=== PATIENT | female | born 1950 | race Caucasian/White ===

== ENCOUNTER 2016-05-13 12:21 | Inpatient (IN) | payer MEDICARE, OTHER ==
[~2016-05-13] VITALS: Ht 137.2 cm; Wt 78.7 kg
[2016-05-13] VITALS (10 sets, daily range): BP systolic 85–142; BP diastolic 53–76; PULSE 80–118; RESP 16–28; TEMP 97.8–98.9; O2SAT 87–99
[~2016-05-13 12:21] MED LIST: ACET325 PO; ALBU.5I NEB; ALUM5LIQ PO; AMLO10 PO; BUDE.5I NEB; DESONIDE TOP; DIPH25 PO; DOCU1CAP39 PO; LANSO30 NG; LEVA750T PO; LEVO.2 PO; LISI5 PO; LORTA5 PO; METO25 PO; MILKSUS5 PO; NITR0.1D TD; PRED50 PO; RITA20TA PO; SUCR1TAB PO; SYNT200T PO; THERTAB17 PO; TIOT18I INH
--- NOTE | 2016-05-13 12:28 | PD ---
HPI Chief Complaint: respiratory distress Time Seen by Provider: 12:23 Travel History International Travel<30 days: No Contact w/Intl Traveler<30days: No Traveled to known affect area: No History of Present Illness HPI 66-year-old female came to the emergency room brought by EMS with significant respiratory distress and hypoxia. She comes from the custodial and has history of COPD. Patient received 2 albuterol nebulizer along with Solu-Medrol en route. However by the time she arrived to the emergency room her oxygen saturation was 86% and she was in visible respiratory distress. Her rectal temp and ER was 101.9. Patient has been coughing and she said that she has had several pneumonias in the past. No history of vomiting or diarrhea. Given her respiratory distress and patient is hard of hearing but is difficult to get most of the history out of her. PFSH Past Medical History Narrative Medical List of her past medical history as reviewed from the nursing note. Arthritis: Yes Asthma: Yes Autoimmune Disease: Yes (MS) Blood Disorders: Yes Anxiety: No Depression: No Heart Rhythm Problems: Yes (mumur) Cancer: Yes (ENDOMETRIAL CA (with hysterectomy)) Cardiomyopathy: Yes Cardiovascular Problems: Yes (L HYPERTROPHIC CARDIOMEGALY) High Cholesterol: Yes Chemotherapy: No Chest Pain: Yes Congestive Heart Failure: No COPD: No Cerebrovascular Accident: No Diabetes: No Diminished Hearing: Yes (PRAIRIE BAND) Endocrine: Yes Gastrointestinal Disorders: Yes ( ESOPHAGEAL EROSION) Genetic Disorder: Yes GERD: Yes Genitourinary: No Headaches: No Hiatal Hernia: No Hypertension: Yes Immune Disorder: Yes (m.s., graves disease) Implanted Vascular Access Dvce: No Kidney Stones: No Musculoskeletal: Yes (fx right patella, right tibia fracture - fall in 2013) Neurologic: Yes (MS, NEUROPATHY, GRAVES DISEASE) Psychiatric: No Reproductive: No Respiratory: Yes (asthma) Immunizations Current: Yes Migraines: Yes Myocardial Infarction: No Pancreatitis: Yes Pneumonia: Yes Radiation Therapy: No Renal Failure: No Seizures: Yes Sickle Cell Disease: No Sleep Apnea: No Thyroid Disease: Yes Ulcer: Yes ( ) Menopausal: Yes : 1 Para: 1 Past Surgical History AICD: No Arteriovenous Shunt: No Cardiac Surgery: No Cholecystectomy: Yes Ear Surgery: No Endocrine Surgery: No Eye Surgery: No Genitourinary Surgery: No Gynecologic Surgery: Yes (hysterectomy) Hysterectomy: Yes Insulin Pump: No Joint Replacement: No Neurologic Surgery: Yes (KYPHOPLASTY T5,L1, SACRAL AND OTHERS) Oral Surgery: No Pacemaker: No Thoracic Surgery: No Tonsillectomy: Yes Other Surgery: Yes (bilat lumpectomy) Social History Alcohol Use: No Tobacco Use: No (STOPPED APR 2012) Substance Use: No Allergies-Medications (Allergen,Severity, Reaction): Coded Allergies: Amitriptyline (Verified Allergy, Severe, SWELLING, 07/21/15) Penicillin (Verified Allergy, Severe, Anaphylaxis, 07/21/15) Sulfa (Verified Allergy, Severe, Anaphylaxis, 07/21/15) Aspirin (Verified Allergy, Intermediate, Rash, 07/21/15) *MDRO Multi-Drug Resistant Organism (Verified Adverse Reaction, Unknown, ) MRSA PCR Screen POSITIVE - 07/22/2015, 05/13/2016 MRSA sputum 06/2015 Comments List of her allergies reviewed from the nursing note. Reported Meds & Prescriptions Reported Meds & Active Scripts Active Reported Loperamide (Loperamide HCl) 2 Mg Cap 2 Mg PO DIRECTED PRN Give 4mg for the initail dose, then 2mg after each loose stool. Not to exceed 16 mg per day. Fleet Enema Rectal (Sodium Phosphates Rectal) 7-19 Gm/118 Ml Enem 118 Ml RECTAL DIRECTED PRN Dulcolax Supp (Bisacodyl) 10 Mg Supp 10 Mg RECTAL DIRECTED PRN Nitroglycerin SL (Nitroglycerin) 0.4 Mg Subl 0.4 Mg SL DIRECTED PRN ONE TABLET UNDER THE TONGUE NEEDED FOR CHEST PAIN, MAY REPEAT EVERY FIVE MINUTES FOR A TOTAL OF 3 DOSES OR CALL 911 IF NO RELIEF Mapap (Acetaminophen) 325 Mg Tab 650 Mg PO Q4HR PRN Guaifenesin DM Liq (Guaifenesin-Dextromethorphan Liq) 10-100 Mg/5 Ml Liq 10 Ml PO Q6HR PRN Mylanta Liq (Snglusww-Yvnifhqsy-Ttsmnlcwndz Liq) 200-200-20 Mg/5 Ml Susp 30 Ml PO Q4HR PRN Take between meals or as directed. Shake well. Maximum 120 ml/24 hrs. Sucralfate 1 Gm Tab 1 Gm PO TID on empty stomach Spiriva Handihaler (Tiotropium Inh) 18 Mcg Cap 18 Mcg INH DAILY 1 capsule = 18 mcg Albuterol Neb (Albuterol Sulfate) 2.5 Mg/3 Ml Neb 2.5 Mg NEB Q6HR PRN Lorazepam 0.5 Mg Tab 0.5 Mg PO TID PRN Senna S (Sennosides-Docusate Sodium) 8.6-50 Mg Tab 1 Tab PO BID PRN Milk of Magnesia Liq (Magnesium Hydroxide) 400 Mg/5 Ml Susp 30 Ml PO Q4HR PRN Loperamide Liq (Loperamide HCl) 1 Mg/5 Ml Liq 2 Mg PO DIRECTED PRN Give 4 mg (20 ml) for the initial dose then, 2 mg (10 mL) after each loose stool. Not to exceed 16 mg (80 mL) per day. Keppra (Levetiracetam) 500 Mg Tab 500 Mg PO BID Guaifenesin 400 Mg Tab 400 Mg PO DAILY Hulbert (Hydrocodone-Acetaminophen) 5-325 mg Tab 1 Tab PO Q4H Gabapentin 100 Mg Cap 100 Mg PO TID Budesonide Neb 0.5 Mg/2 Ml Neb 0.5 Mg NEB BID NEB Amlodipine (Amlodipine Besylate) 10 Mg Tab 10 Mg PO DAILY Sertraline (Sertraline HCl) 50 Mg Tab 50 Mg PO DAILY Prednisone 10 Mg Tab 10 Mg PO DAILY Omeprazole 20 Mg Cap 20 Mg PO DAILY Mirtazapine 15 Mg Tab 15 Mg PO HS Metoprolol Tartrate 25 Mg Tab 12.5 Mg PO Q12HR Lactobacillus Acidophilus 1 Tab Tab 1 Tab PO BID Lisinopril 5 Mg Tab 5 Mg PO DAILY Levothyroxine (Levothyroxine Sodium) 200 Mcg Tab 200 Mcg PO DAILY Levothyroxine (Levothyroxine Sodium) 25 Mcg Tab 25 Mcg PO DAILY Narrative Medication List of her home medications reviewed from the nursing note. Review of Systems Except as stated in HPI: all other systems reviewed are Neg Physical Exam Narrative GENERAL: Awake, alert, obese, moderate respiratory distress SKIN: Warm and dry. HEAD: Atraumatic. Normocephalic. EYES: Pupils equal and round. No scleral icterus. No injection or drainage. ENT: No nasal bleeding or discharge. Mucous membranes pink and moist. NECK: Trachea midline. No JVD. CARDIOVASCULAR: Regular rate and rhythm. No murmur appreciated. RESPIRATORY: No accessory muscles for respiration. Decreased air entry on auscultation. Bilateral end expiratory wheeze GASTROINTESTINAL: Abdomen soft, non-tender, nondistended. Hepatic and splenic margins not palpable. MUSCULOSKELETAL: No obvious deformities. No clubbing. No cyanosis. No edema. NEUROLOGICAL: Awake and alert. No obvious cranial nerve deficits. Motor grossly within normal limits. Normal speech. PSYCHIATRIC: Appropriate mood and affect; insight and judgment normal. Data Data Last Documented VS Vital Signs Date Time Temp Pulse Resp B/P Pulse Ox O2 Delivery O2 Flow Rate FiO2 05/13/16 13:34 102 22 142/70 97 CPAP 80 05/13/16 12:23 98.7 Orders Ondansetron Inj (Zofran Inj) (05/13/16 12:34) Complete Blood Count With Diff (05/13/16 12:34) Comprehensive Metabolic Panel (05/13/16 12:34) Lactic Acid Sepsis Protocol (05/13/16 12:34) Magnesium (Mg) (05/13/16 12:34) Troponin I (05/13/16 12:34) Urinalysis - C+S If Indicated (05/13/16 12:34) Blood Culture (05/13/16 12:34) Chest, Single Ap (05/13/16 12:34) Arterial Blood Gas (Abg) (05/13/16 12:34) Blood Glucose (05/13/16 12:34) Ecg Monitoring (05/13/16 12:34) Iv Access Insert/Monitor (05/13/16 12:34) Oximetry (05/13/16 12:34) Oxygen Administration (05/13/16 12:34) Acetaminophen Supp (Tylenol Supp) (05/13/16 12:45) Piperacil-Tazo 4.5 Gm Premix (Zosyn 4.5 (05/13/16 12:34) Azithromycin Inj (Zithromax Inj) (05/13/16 12:34) Albuterol-Ipratropium Neb (Duoneb Neb) (05/13/16 12:45) Aztreonam Inj (Azactam Inj) (05/13/16 12:45) Resp Bipap / Cpap Non Invas Vt (05/13/16 ) Urinary Catheter Insert/Apply (05/13/16 12:38) B-Type Natriuretic Peptide (05/13/16 12:38) Ondansetron Inj (Zofran Inj) (05/13/16 12:45) Sodium Chlor 0.9% 1000 Ml Inj (Ns 1000 M (05/13/16 12:45) Influenzae A/B Antigen (05/13/16 13:09) Admit Order (Ed Use Only) (05/13/16 14:29) Labs Laboratory Tests Test 05/13/16 05/13/16 05/13/16 12:40 12:45 13:00 Blood Gas Puncture Site LT RADIAL Blood Gas Patient Temperature 98.6 Blood Gas HCO3 23 mmol/L Blood Gas Base Excess -1.0 mmol/L Blood Gas Oxygen Saturation 94 % Arterial Blood pH 7.40 Arterial Blood Partial 39 mmHg Pressure CO2 Arterial Blood Partial 132 mmHG Pressure O2 Arterial Blood Oxygen Content 14.9 Vol % Arterial Blood 1.6 % Carboxyhemoglobin Arterial Blood Methemoglobin 2.8 % Blood Gas Hemoglobin 11.2 G/DL Oxygen Delivery Device BiPAP Blood Gas Ventilator Setting IPAP15/EPAP7 Blood Gas Inspired Oxygen 100 % White Blood Count 17.7 TH/MM3 Red Blood Count 4.01 MIL/MM3 Hemoglobin 11.0 GM/DL Hematocrit 34.2 % Mean Corpuscular Volume 85.3 FL Mean Corpuscular Hemoglobin 27.3 PG Mean Corpuscular Hemoglobin 32.0 % Concent Red Cell Distribution Width 17.6 % Platelet Count 248 TH/MM3 Mean Platelet Volume 9.3 FL Neutrophils (%) (Auto) 77.3 % Lymphocytes (%) (Auto) 10.1 % Monocytes (%) (Auto) 7.4 % Eosinophils (%) (Auto) 5.0 % Basophils (%) (Auto) 0.2 % Neutrophils # (Auto) 13.7 TH/MM3 Lymphocytes # (Auto) 1.8 TH/MM3 Monocytes # (Auto) 1.3 TH/MM3 Eosinophils # (Auto) 0.9 TH/MM3 Basophils # (Auto) 0.0 TH/MM3 CBC Comment DIFF FINAL Differential Comment Sodium Level 141 MEQ/L Potassium Level 3.5 MEQ/L Chloride Level 103 MEQ/L Carbon Dioxide Level 24.4 MEQ/L Anion Gap 14 MEQ/L Blood Urea Nitrogen 26 MG/DL Creatinine 1.10 MG/DL Estimat Glomerular Filtration 50 ML/MIN Rate Random Glucose 195 MG/DL Lactic Acid Level 3.4 mmol/L Calcium Level 9.0 MG/DL Magnesium Level 1.8 MG/DL Total Bilirubin 0.4 MG/DL Aspartate Amino Transf 10 U/L (AST/SGOT) Alanine Aminotransferase 19 U/L (ALT/SGPT) Alkaline Phosphatase 82 U/L Troponin I LESS THAN 0.02 NG/ML B-Type Natriuretic Peptide 37 PG/ML Total Protein 7.9 GM/DL Albumin 3.0 GM/DL Urine Color YELLOW Urine Turbidity CLEAR Urine pH 6.0 Urine Specific Drake 1.020 Urine Protein 30 mg/dL Urine Glucose (UA) NEG mg/dL Urine Ketones NEG mg/dL Urine Occult Blood NEG Urine Nitrite NEG Urine Bilirubin NEG Urine Urobilinogen LESS THAN 2.0 MG/DL Urine Leukocyte Esterase NEG Urine Mucus FEW /lpf Microscopic Urinalysis Comment CATH-CULT NOT IND MDM Medical Decision Making Medical Screen Exam Complete: Yes Emergency Medical Condition: Yes Medical Record Reviewed: Yes Interpretation(s) Twelve-lead EKG was reviewed by me. Normal sinus rhythm, normal axis, tachycardia, nonspecific ST-T wave changes. Heart rate of 111 bpm. Differential Diagnosis Pneumonia, sepsis, pleural effusion Narrative Course 2:26 PM blood test results of back and lactic acid is elevated. Patient has leukocytosis. Patient was given antibiotic and fluid as per sepsis protocol. I spoke with the hospitalist to admit this patient. Patient was put on BiPAP which has improved the oxygen saturation. Patient is much more comfortable at this point. She was also given 3 duo nebs. Critical Care Narrative Aggregate critical care time was 45 minutes. Time to perform other separately billable procedures was not included in the critical care time. My time did not include minutes spent treating any other patients simultaneously or on activities that did not directly contribute to the patient's treatment. The services I provided to this patient were to treat and/or prevent clinically significant deterioration that could result in: Respiratory distress, sepsis, COPD exacerbation, hypoxia, pneumonia I provided critical care services requiring my management, as noted below: Chart data review, documentation time, medication orders and management, vital sign assessments/reviewing monitor data, ordering and reviewing lab tests, ordering and interpreting/reviewing x-rays and diagnostic studies, care of the patient and discussion of the patient with the admitting physicians. Procedures EKG Prior to Arrival: No Sepsis Criteria SIRS Criteria (2 or more): Temp > 100.9 or < 96.8, Heart rate over 90, RR > 20 or PaCO2 < 32, WBC > 16333, < 4000 or > 10% bands Sepsis Criteria (SIRS+source): Infect source susp/known Severe Sepsis (+one): Lactate >2 Diagnosis Primary Impression: Respiratory distress Additional Impressions: PNA (pneumonia) Qualified Code: J18.9 - Pneumonia due to infectious organism, unspecified laterality, unspecified part of lung Acute exacerbation of chronic obstructive pulmonary disease (COPD) Hypoxia Sepsis Qualified Code: A41.9 - Sepsis, due to unspecified organism Admitting Information Admitting Physician Requests: Admit Beau Wright MD May 13, 2016 12:28
[2016-05-13] MEDS ORDERED: AZITHROMYCIN INJ 500 MG in SODIUM CHLOR 0.9% 250 ML INJ 250 ML IV STA (12:34)
[2016-05-13] MEDS ORDERED: PIPERACIL-TAZO 4.5 GM PREMIX 100 ML IV STA (12:34)
[2016-05-13] MEDS ORDERED: ONDANSETRON HCL 4 MG/2 ML VIAL ONE (12:34)
[2016-05-13] MEDS ORDERED: ACETAMINOPHEN 650 MG SUPP RECTAL ONE (12:45)
[2016-05-13] MEDS ORDERED: AZTREONAM INJ 2,000 MG in SODIUM CHLORIDE 0.9% INJ 100 ML IV ONE (12:45)
[2016-05-13] MEDS ORDERED: SODIUM CHLOR 0.9% 1000 ML INJ 1,000 ML IV ONE (12:45)
[2016-05-13] MEDS ORDERED: ONDANSETRON HCL 4 MG/2 ML VIAL IV PUSH ONE (12:45)
[2016-05-13 12:50] LABS: BLOOD GAS CARBOXYHEMOGLOBIN 1.6 % (0-4); BLOOD GAS HCO3 23 mmol/L (22-26); BLOOD GAS METHEMOGLOBIN 2.8 % (0-2); BLOOD GAS O2 HGB SATURATION 94 % (90-100); BLOOD GAS OXYGEN CONTENT 14.9 Vol % (12.0-20.0); BLOOD GAS PCO2 39 mmHg (38-42); BLOOD GAS PO2 132 mmHG (61-120); BLOOD GAS TOTAL HGB 11.2 G/DL (12.0-16.0); CRITICAL VALUE NO; DRAW SITE LT RADIAL; FIO2 100 %; NUMBER OF ARTERIAL PUNCTURES 1; OXYGEN DEVICE BiPAP; STAT YES; TEMP CORR TO 98.6; ULNAR PULSE PRESENT; VENT SETTINGS IPAP15/EPAP7
[2016-05-13] MEDS: RESP: ALBUTEROL 2.5 MG/IPRATROPIUM 0.5 MG NEB (SCH) INH (13:00)
[2016-05-13 13:07] LABS: AUTOMATED NEUTROPHIL # 13.7 TH/MM3 (1.8-7.7); BASOPHIL % 0.2 % (0.0-2.0); EOSINOPHIL # 0.9 TH/MM3 (0-0.4); HEMATOCRIT 34.2 % (35.0-46.0); HEMO FLAGS DIFF FINAL; LYMPH % 10.1 % (9.0-44.0); LYMPHOCYTE # 1.8 TH/MM3 (1.0-4.8); MEAN CELL VOLUME 85.3 FL (80.0-100.0); MEAN CORPUSCULAR HEMOGLOBIN 27.3 PG (27.0-34.0); MONO % 7.4 % (0.0-8.0); NEUT % 77.3 % (16.0-70.0); PLATELET COUNT 248 TH/MM3 (150-450); RED BLOOD COUNT 4.01 MIL/MM3 (4.00-5.30); RED CELL DISTRIBUTION WIDTH 17.6 % (11.6-17.2); WHITE BLOOD COUNT 17.7 TH/MM3 (4.0-11.0)
[2016-05-13] MEDS ORDERED: LEVO200T4 PO (13:15)
[2016-05-13] MEDS ORDERED: LEVO25TA4 PO (13:15)
[2016-05-13 13:25] LABS: ALT (GPT) 19 U/L (10-53); ANION GAP 14 MEQ/L (5-15); AST (GOT) 10 U/L (15-37); BICARBONATE 24.4 MEQ/L (21.0-32.0); BLOOD UREA NITROGEN 26 MG/DL (7-18); CHLORIDE 103 MEQ/L (98-107); GLOMERULAR FILTRATION RATE 50 ML/MIN (>89); MAGNESIUM 1.8 MG/DL (1.5-2.5); POTASSIUM 3.5 MEQ/L (3.5-5.1); SODIUM (NA) 141 MEQ/L (136-145)
[2016-05-13] MEDS ORDERED: LISI-519 PO (13:26)
[2016-05-13] MEDS ORDERED: MIRTA15 PO (13:26)
[2016-05-13] MEDS ORDERED: LACTTAB8 PO (13:26)
[2016-05-13] MEDS ORDERED: METO25TA3 PO (13:26)
[2016-05-13] MEDS ORDERED: GABA100C4 PO (13:26)
[2016-05-13] MEDS ORDERED: BUDE0.5S NEB (13:26)
[2016-05-13] MEDS ORDERED: SERT-132 PO (13:26)
[2016-05-13] MEDS ORDERED: OMEP20CA2 PO (13:26)
[2016-05-13] MEDS ORDERED: PRED10 PO (13:26)
[2016-05-13] MEDS ORDERED: AMLO10TA2 PO (13:26)
--- NOTE | 2016-05-13 13:28 | RADRPT ---
EXAM DATE/TIME: 05/13/2016 12:58 [facility] COMPARISON: Prior study dated 09/14/2015 used for comparison. INDICATIONS : Short of breath MEDICAL HISTORY : None. SURGICAL HISTORY : None. ENCOUNTER: Initial ACUITY: 1 day PAIN SCORE: 0/10 LOCATION: Bilateral chest FINDINGS: A single view of the chest demonstrates there is mild pulmonary vascular congestion. There are three levels of vertebroplasties in the thoracic spine. The heart remains mildly prominent. There is no p neumothorax. There are a number of left sided rib fractures. CONCLUSION: Mild diffuse interstitial prominence. No focal infiltrate is seen. Jean Chatterjee MD on May 13, 2016 at 13:23 Board Certified Radiologist. This report was verified electronically.
[2016-05-13 13:29] LABS: ALKALINE PHOSPHATASE 82 U/L (45-117); TOTAL BILIRUBIN ADULT 0.4 MG/DL (0.2-1.0)
[2016-05-13] MEDS ORDERED: LOPE1LIQ3 PO (13:32)
[2016-05-13] MEDS ORDERED: GUAI400T8 PO (13:32)
[2016-05-13] MEDS ORDERED: NORC5TAB PO (13:32)
[2016-05-13] MEDS ORDERED: LEVE500 PO (13:32)
[2016-05-13 13:34] LABS: BLOOD, URINE NEG (NEG); GLUCOSE,URINE NEG (NEG); KETONE, URINE NEG (NEG); MUCUS URINE FEW /lpf (OCC); NITRITE,URINE NEG (NEG); URINE COLOR YELLOW (YELLW/STRAW)
[2016-05-13 13:36] LABS: COMMENT (UR) CATH-CULT NOT IND; CULTURE IF INDICATED CATH CULTURE NOT IND
[2016-05-13] MEDS ORDERED: MILKSUS PO (13:37)
[2016-05-13] MEDS ORDERED: LORA-373 PO (13:37)
[2016-05-13] MEDS ORDERED: SENN8.6T8 PO (13:37)
[2016-05-13] MEDS ORDERED: SPIRCAP INH (13:37)
[2016-05-13] MEDS ORDERED: SUCR1TAB PO (13:37)
[2016-05-13] MEDS ORDERED: ALBU0.08 NEB (13:37)
[2016-05-13] MEDS ORDERED: DULC10SU3 RECTAL (13:44)
[2016-05-13] MEDS ORDERED: GUAISYP7 PO (13:44)
[2016-05-13] MEDS ORDERED: MYLASUS2 PO (13:44)
[2016-05-13] MEDS ORDERED: FLEEENE3 RECTAL (13:44)
[2016-05-13] MEDS ORDERED: MAPA325T PO (13:44)
[2016-05-13] MEDS ORDERED: NITR1SUB3 SL (13:44)
[2016-05-13] MEDS ORDERED: LOPE2CAP PO (13:44)
[2016-05-13] MEDS ORDERED: SODIUM CHLORIDE 0.9% FLUSH 5 ML FLUSH FLUSH PRN (14:45)
[2016-05-13] MEDS ORDERED: ACETAMINOPHEN 325 MG TAB PO PRN (14:45)
[2016-05-13] MEDS ORDERED: ONDANSETRON HCL 4 MG/2 ML VIAL IVP PRN (14:45)
[2016-05-13] MEDS ORDERED: NALOXONE HCL 0.4 MG/ML AMP IV PRN (14:45)
[2016-05-13 14:59] LABS: LACTIC ACID GHOST NOT REPORTABLE
[2016-05-13] MEDS ORDERED: ALUMINUM/MAGNESIUM/SIMETH 30 ML CUP PO PRN (15:00)
[2016-05-13] MEDS ORDERED: NITROGLYCERIN 0.4 MG SL 25 TABS/BTL SL PRN (15:00)
[2016-05-13] MEDS ORDERED: RESP: ALBUTEROL 2.5 MG/3 ML NEB (PRN) NEB (15:00)
[2016-05-13] MEDS ORDERED: guaiFENesin/DEXTROMETHORPHAN 200 MG/20 MG/10 ML CUP PO PRN (15:00)
[2016-05-13] MEDS: SODIUM CHLOR 0.9% 1000 ML INJ 1,000 ML IV SCH (15:37)
[2016-05-13] MEDS: ACETAMINOPHEN/HYDROcodone 325 MG/5 MG TAB PO SCH ×3 (15:37→22:11)
[2016-05-13] MEDS ORDERED: AZITHROMYCIN INJ 500 MG in SODIUM CHLOR 0.9% 250 ML INJ 250 ML IV SCH ×2 (16:00→18:00)
[2016-05-13] MEDS: CEFEPIME INJ 2,000 MG in SODIUM CHLORIDE 0.9% INJ 100 ML IV SCH (16:30)
[2016-05-13] MEDS ORDERED: RESP: ALBUTEROL 2.5 MG/IPRATROPIUM 0.5 MG NEB (PRN) NEB (17:15)
[2016-05-13] MEDS ORDERED: DEXTROSE 50% IN WATER 50 ML VIAL(D50) IV PUSH PRN (17:15)
[2016-05-13] MEDS ORDERED: GLUCAGON 1 MG/ML VIAL OTHER PRN (17:15)
--- NOTE | 2016-05-13 17:29 | MH ---
cc: DEAN RAJPUT DATE OF ADMISSION 05/13/2016 DATE OF [address] Dean Rajput. PRIMARY CARE PHYSICIAN Dr. Brandon Hernandez. REASON FOR ADMISSION Respiratory distress. HISTORY OF THE PRESENT ILLNESS The patient is a 66-year-old female with a significant past medical history of COPD. She is oxygen dependent on 6 liters nasal cannula as per previous history. Also has a history of multiple sclerosis, hypertension, seizure disorder and gastritis with Bueno's esophagus who came to the ER via EMS because of the respiratory distress and hypoxia. The patient received two albuterol nebulizer with Solu-Medrol en route. And when she came to the ER her oxygen saturation was 86%. She was in respiratory distress as per the ER physician documentation and as discussed with her. Her rectal temperature was 101.9. Because of this reason the patient was recommended for admission. The patient was put on BiPap. I saw the patient in the emergency room while being on a BiPap. It was difficult to get good history. The patient has shortness of breath for the past 5-6 days. And with a cough. She was unable to tell me about the sputum. She had fever and chills. She has nausea and vomiting. She has diarrhea from 5 days, a few times a day. She did not have any pain just generalized body ache, no particular pain but just generalized bodyache. There was no headache. There is no genitourinary symptom. The patient was put on a BiPap which did help her. She is feeling better. PAST MEDICAL HISTORY 1. COPD. 2. Hypertension 3. Multiple sclerosis. 4. Seizure disorder. 5. Gastritis with Bueno's esophagus. PAST SURGICAL HISTORY 1. Hysterectomy. 2. Cholecystectomy. 3. Kyphoplasty. 4. Bilateral lumpectomy. REVIEW OF SYSTEMS As described above in the history of present illness, otherwise negative for 10 systems. SOCIAL HISTORY The patient quit smoking in 2012. Does not drink or do any drugs. FAMILY HISTORY Noncontributory. MEDICATIONS Reviewed, please see EMR. ALLERGIES THE PATIENT IS ALLERGIC TO AMITRIPTYLINE, ASPIRIN, PENICILLIN, SULFA DRUGS. SHE HAS MULTIPLE DRUG RESISTANT ORGANISM IN THE PAST. PHYSICAL EXAMINATION GENERAL: The patient is alert, awake on BiPAP. VITAL SIGNS: Show the patient is afebrile. Pulse 100-109 on monitor. Respiratory rate is 22, blood pressure 142/70. Pulse oximetry is 97% on FIO2 of 50%. HEENT: Head is atraumatic, normocephalic. Eyes negative conjunctivae injection or icterus. Mouth unable to see clearly because of BiPAP mask on. NECK: A very short neck. Central trachea. Unable to see clearly JVD. CHEST: Decreased air entry. Bibasilarly . Coarse respirations. No accessory muscle use for respirations. CARDIOVASCULAR: S1 and S2 audible. Tachycardia. Unable to hear any S3 gallop or murmur. ABDOMEN: Soft, non-tender. No organomegaly. Positive bowel sounds. MUSCULOSKELETAL: Extremities, no cyanosis noted. No edema. CIVIL [employer]ER [employer]INING: Alert, awake. Seems like normal facial features. Normal speech. Moving all extremities. SKIN: Warm and dry. PSYCHIATRIC: Appropriate mood and affect. LABORATORY DATA Investigations, WBC count 17.7, hemoglobin 11, hematocrit 34.2, platelet count to 248. BUN 26. Creatinine 1.10, random glucose 95, lactic acid 3.4, AST 10. Troponin 0.02. Urine shows urine protein 30, urine mucus few. Influenza A and B antigen negative. IMAGING Chest x-ray report shows mild diffuse interstitial prominence. No focal infiltrate is seen. ASSESSMENT 1. Fever. Tachycardia with increased lactic acid 3.4, sepsis on admission. 2. COPD exacerbation. 3. Likely pneumonia developing / bronchitis. 4. Acute respiratory failure. 5. Leukocytosis. 6. History of seizure disorder. 7. History of gastritis. 8. History of multiple sclerosis. 9. Hypertension. PLAN Admit to ICU. IV antibiotics broad-spectrum. IV Solu-Medrol. Breathing treatments. Scanning Supervisor consult. Continue home medication as indicated. CBC, BMP in the morning. Follow cultures. See orders. GI prophylaxis. DVT prophylaxis. Condition discussed with the patient. Condition is critical. Prognosis guarded. Further recommendation will follow. Total time spent with the patient and management of this patient is more than an hour. Further recommendations to follow as the patient progresses. Dean Rajput MD JP/ARTHUR /4:28 PM /5:01 PM
[2016-05-13] MEDS: GABAPENTIN 100 MG CAP PO SCH (17:32)
[2016-05-13] MEDS: SUCRALFATE 1 GM TAB PO SCH (17:32)
[2016-05-13] MEDS: methylPREDNISolone SOD SUCC 125 MG/2 ML VIAL IV PUSH SCH ×2 (17:33→22:08)
[2016-05-13] MEDS: INSULIN NovoLIN REGULAR SUPPLEMENTAL SCALE SQ SCH ×2 (17:33→22:34)
[2016-05-13] MEDS: HEPARIN SODIUM - SQ 10,000 UNITS/ML VIAL SQ SCH (17:34)
[2016-05-13] MEDS ORDERED: CHLORHEXIDINE GLUCONATE 2 % 1 PACK (2 CLOTHS)(extra cloths) TOP PRN (19:00)
[2016-05-13] MEDS: RESP: BUDESONIDE 0.5 MG/2 ML NEB NEB SCH (19:47)
[2016-05-13] MEDS: RESP: ALBUTEROL 2.5 MG/IPRATROPIUM 0.5 MG NEB (SCH) NEB (19:47)
--- NOTE | 2016-05-13 20:26 | MB ---
cc: FRANK PERALTA M.D. DATE OF CONSULTATION: 05/13/2016. HISTORY OF PRESENT ILLNESS: The patient is 66-year-old female with past medical history of COPD, hypertension, hypothyroidism, gastroesophageal reflux disease, hypertension, and morbid obesity who presented to the [facility] Emergency Department by EMS with respiratory distress and hypoxemia. The patient resides in a local alf and she received a bronchodilator treatment along with Solu-Medrol en route. In the emergency department, she was found to have an O2 saturation of 86% and had a rectal temperature of 101.9 in the emergency department. Also she reports coughing. According to the emergency department records, the patient has had several pneumonias in the past. She is a poor historian. She denies any nausea, vomiting, diarrhea or any constitutional symptoms. On arrival to the emergency department, she was tachycardiac with heart rate of 102 to 118 and tachypneic. She was placed on BiPAP 15/7 with 100% FIO2. An ABG was performed at 12:40, which showed a pH of 7.40, CO2 39, pAO2 132, bicarb 23, saturation of 94%. Chest x-ray on arrival showed mild diffuse interstitial prominence, no focal infiltrates seen. Laboratory data significant for leukocytosis with a WBC of 17.7 and her initial lactic acid level was 3.4, which increased to 4.3 at 1500. She was given azithromycin, aztreonam, Tylenol, bronchodilator treatment and one liter of normal saline. The patient was transferred to [facility] [place]. Rajput's service from the [facility] and critical care medicine was consulted for critical care management. The patient is currently off on BiPAP and is on partial rebreather with saturation of 98% to 99% and blood pressure 110/55. Her nasal aspirate for influenza A and B antigen is negative and two sets of blood cultures have been performed in the ED. PAST MEDICAL HISTORY: Her past medical history is significant for: 1. COPD. 2. Hypertension. 3. Hypothyroidism. 4. Endometrial CA. 5. Gastroesophageal reflux disease (GERD). 6. History of Graves disease. 7. History of seizure disorder. PAST SURGICAL HISTORY: 1. Previous hysterectomy. 2. Previous cholecystectomy. 3. Previous kyphoplasty. 4. Bilateral lumpectomy. SOCIAL HISTORY: The patient is a alf resident, ex-smoker, quit smoking four years ago and used to smoke a pack and a half of cigarettes per day for many years. Denies any alcohol use. ALLERGIES: 1. PENICILLIN. 2. ASPIRIN. 3. AMITRIPTYLINE. FAMILY HISTORY: Noncontributory. REPORTED MEDICATIONS: 1. Levothyroxine. 2. Lactobacillus. 3. Metoprolol. 4. Omeprazole. 5. Prednisone. 6. Sertraline. 7. Norvasc. 8. Gabapentin. 9. Keppra. 10. Albuterol. 11. Spiriva. 12. REVIEW OF SYSTEMS: As per HPI. The rest of the review of systems is negative. PHYSICAL EXAMINATION: GENERAL: A 66-year-old female lying in bed in mild respiratory distress. VITAL SIGNS: Temperature of 101.9 rectally in the emergency department, pulse of 98, blood pressure 110/55, saturation 98% to 99%. HEAD, EYES, EARS, NOSE, THROAT: Normocephalic and atraumatic. Pupils equal, round and reactive to light and accommodation. Extraocular muscles intact. Conjunctivae are pink. Nonicteric sclerae. Oral mucosa within normal limits. Dry mucous membranes noted. NECK: The neck is supple. No jugular venous distention, adenopathy or thyromegaly. Trachea in the midline. CARDIOVASCULAR: Regular rate and rhythm. Normal S1 and S2. No murmurs, rubs or gallops noted. PULMONARY: Bilateral equal air entry with scattered wheezing and coarse breath sounds. ABDOMEN: The abdomen is soft, obese, nontender and no distention. Positive bowel sounds. EXTREMITIES: No cyanosis, clubbing or edema. NEUROLOGIC: No focal sensory deficit. LABORATORY DATA: Sodium 141, potassium 3.5, chloride 103, CO2 24, BUN 26, creatinine 1.10, glucose 195, lactic acid 4.3, AST 10, ALT 19, total bilirubin 0.4. Troponin less than 0.020. Albumin 3. WBC 17.7, hemoglobin 11, hematocrit of 34, platelet count 248. Urinalysis negative for nitrite, ketones, leukocyte esterase. RADIOGRAPHY: The chest x-ray showed no focal infiltrates seen. Mild diffuse interstitial prominence. EKGS: EKG showed sinus tachycardia with heart rate of 111 beats per minute. Nonspecific T-wave abnormality. IMPRESSION: 1. Acute hypoxemic respiratory insufficiency. 2. COPD exacerbation. 3. Tracheobronchitis. 4. Leukocytosis. 5. Lactic acidemia. 6. Hyperglycemia. 7. Hypertension. 8. Hypothyroidism. 9. History of seizure disorder. RECOMMENDATIONS: 1. Monitor neuro status closely and avoid any sedatives. 2. Continue with Keppra 500 milligrams p.o. twice a day. 3. Continue to wean down oxygen as tolerated and maintain sats above 92%. 4. Place on bronchodilators in the form of DuoNeb q. 4 plus q. 2 PRN for shortness of breath and continue with Spiriva and Symbicort. 5. Noninvasive positive pressure ventilation p.r.n. for respiratory distress. 6. Place on IV steroids, Solu-Medrol 60 mg IV q. 8. 7. Monitor heart rate and blood pressure closely and maintain MAP greater 65 mmHg. 8. Continue with blood pressure medications per primary team. She is currently on amlodipine 10 mg daily. She is on Lopressor 12.5 mg p.o. q. 12. 9. IV fluids. Continue with IV hydration. The patient has been placed on normal saline at 100 mL/hour. 10. Monitor renal function, intakes and outputs and electrolyte replacement per protocol. 11. IV fluids as stated above. 12. Keep NPO for now until respiratory status improves and continue with Protonix 20 milligrams daily for GI prophylaxis and history of gastroesophageal reflux disease (GERD). 13. Continue with antibiotics in the form of cefepime and will add azithromycin. 14. Monitor for signs of infections which include fever and WBC. 15. Follow up on blood cultures. Her nasal aspirate washing negative for influenza. 16. Monitor CBC. 17. Place on medium sliding scale insulin with Accu-Chek q. 6-hour for glycemic control as patient will be on IV steroids. 18. Continue with Synthroid per primary team. 19. GI prophylaxis with Protonix and DVT prophylaxis with SCDs and heparin subcu. Further recommendations will be based on the hospital course. CRITICAL CARE TIME: Sixty (60) minutes excluding procedures. MD MARCIO Vallejo/ADELIA /5:19 PM /8:08 PM
[2016-05-13] MEDS: SODIUM CHLORIDE 0.9% FLUSH 5 ML FLUSH FLUSH SCH (21:00)
[2016-05-13] MEDS: METOPROLOL TARTRATE 25 MG TAB PO SCH (21:00)
[2016-05-13] MEDS: LACTOBACILLUS ACIDOPHILUS TAB PO SCH (22:07)
[2016-05-13] MEDS: levETIRAcetam 500 MG TAB PO SCH (22:07)
[2016-05-13] MEDS: MIRTAZAPINE 15 MG TAB PO SCH (22:08)
[2016-05-13] MEDS: BUDESONIDE-FORMOTEROL 160/4.5 MCG INHALER INH SCH (22:09)
[2016-05-14] VITALS (14 sets, daily range): BP systolic 90–120; BP diastolic 53–58; PULSE 80–110; RESP 16–20; TEMP 97.8–98.6; O2SAT 94–100
[2016-05-14] MEDS: SODIUM CHLOR 0.9% 1000 ML INJ 1,000 ML IV SCH ×3 (02:31→20:29)
[2016-05-14] MEDS: ACETAMINOPHEN/HYDROcodone 325 MG/5 MG TAB PO SCH ×6 (03:00→22:19)
[2016-05-14] MEDS: CHLORHEXIDINE GLUCONATE 2 % 1 PACK (2 CLOTHS)(taper/protocol) TOP SCH (03:55)
[2016-05-14] MEDS: CEFEPIME INJ 2,000 MG in SODIUM CHLORIDE 0.9% INJ 100 ML IV SCH ×2 (03:55→15:59)
[2016-05-14] MEDS: LEVOTHYROXINE SODIUM 25 MCG TAB PO SCH (06:16)
[2016-05-14] MEDS: methylPREDNISolone SOD SUCC 125 MG/2 ML VIAL IV PUSH SCH ×3 (06:17→20:28)
[2016-05-14] MEDS: HEPARIN SODIUM - SQ 10,000 UNITS/ML VIAL SQ SCH ×2 (06:17→18:18)
[2016-05-14] MEDS: INSULIN NovoLIN REGULAR SUPPLEMENTAL SCALE SQ SCH ×4 (06:34→22:19)
[2016-05-14 07:38] LABS: BASOPHIL % 0.1 % (0.0-2.0); HEMO FLAGS DIFF FINAL; LYMPHOCYTE # 0.9 TH/MM3 (1.0-4.8); MEAN CELL VOLUME 85.6 FL (80.0-100.0); MEAN CORPUSCULAR HGB CONC 31.5 % (32.0-36.0); MONO % 2.9 % (0.0-8.0); PLATELET COUNT 205 TH/MM3 (150-450); RED BLOOD COUNT 3.62 MIL/MM3 (4.00-5.30); RED CELL DISTRIBUTION WIDTH 16.8 % (11.6-17.2); WHITE BLOOD COUNT 14.3 TH/MM3 (4.0-11.0)
[2016-05-14 07:51] LABS: BICARBONATE 24.6 MEQ/L (21.0-32.0); MAGNESIUM 2.1 MG/DL (1.5-2.5)
[2016-05-14] MEDS: RESP: BUDESONIDE 0.5 MG/2 ML NEB NEB SCH (08:34)
[2016-05-14] MEDS: RESP: ALBUTEROL 2.5 MG/IPRATROPIUM 0.5 MG NEB (SCH) NEB ×4 (08:34→20:22)
[2016-05-14] MEDS: GABAPENTIN 100 MG CAP PO SCH ×3 (08:42→18:18)
[2016-05-14] MEDS: levETIRAcetam 500 MG TAB PO SCH ×2 (08:42→20:30)
[2016-05-14] MEDS: SODIUM CHLORIDE 0.9% FLUSH 5 ML FLUSH FLUSH SCH ×2 (08:42→20:29)
[2016-05-14] MEDS: PANTOPRAZOLE SOD 20 MG DELAYED RELEASE TAB PO SCH (08:42)
[2016-05-14] MEDS: SERTRALINE HCL 50 MG TAB PO SCH (08:42)
[2016-05-14] MEDS: guaiFENesin SOLUTION 200 MG/10 ML CUP PO SCH (08:42)
[2016-05-14] MEDS: METOPROLOL TARTRATE 25 MG TAB PO SCH ×2 (08:42→20:29)
[2016-05-14] MEDS: SUCRALFATE 1 GM TAB PO SCH ×3 (08:42→18:18)
[2016-05-14] MEDS: LACTOBACILLUS ACIDOPHILUS TAB PO SCH ×2 (08:42→20:29)
[2016-05-14] MEDS ORDERED: TIOTROPIUM BROMIDE 18 MCG INH INH SCH (09:00)
--- NOTE | 2016-05-14 09:02 | HHI.CCPN ---
Subjective Remarks/Hospital Course Patient is 66-year-old female with past medical history of COPD, hypertension, hypothyroidism, gastroesophageal reflux disease, hypertension, and morbid obesity who presented to the [facility] Emergency Department by EMS with respiratory distress and hypoxemia. The patient resides in a local fpc and she received a bronchodilator treatment along with Solu-Medrol en route. In the emergency department, she was found to have an O2 saturation of 86 % and had a rectal temperature of 101.9 in the emergency department. Also she reports coughing. According to the emergency department records, the patient has had several pneumonias in the past. She is a poor historian. She denies any nausea, vomiting, diarrhea or any constitutional symptoms. On arrival to the emergency department, she was tachycardiac with heart rate of 102 to 118 and tachypneic. She was placed on BiPAP 15/7 with 100% FIO2. An ABG was performed at 12:40, which showed a pH of 7.40, CO2 39, pAO2 132, bicarb 23, saturation of 94%. Chest x-ray on arrival showed mild diffuse interstitial prominence, no focal infiltrates seen. Laboratory data significant for leukocytosis with a WBC of 17.7 and her initial lactic acid level was 3.4, which increased to 4.3 at 1500. She was given azithromycin, aztreonam, Tylenol, bronchodilator treatment and one liter of normal saline. The patient was transferred [place] [facility] [place]. Rajput's service from the [facility] and critical care medicine was consulted for critical care management. The patient is currently off on BiPAP and is on partial rebreather with saturation of 98% to 99% and blood pressure 110/55. Her nasal aspirate for influenza A and B antigen is negative and two sets of blood cultures have been performed in the ED. 05/14 No events overnight. On partial rebreather with good sats. Afebrile. Lactic acid resolved. Objective Vital Signs Date Time Temp Pulse Resp B/P Pulse Ox O2 Delivery O2 Flow Rate FiO2 05/14/16 08:37 100 Partial Rebreather 12.00 05/14/16 08:00 92 05/14/16 08:00 97.8 18 120/57 05/13/16 16:01 80 Intake and Output 05/13/16 05/13/16 05/14/16 08:00 16:00 00:00 Intake Total 637 ml Output Total 400 ml Balance 237 ml Result Diagram: 05/14/16 0715 05/14/16 0715 Other Results Laboratory Tests Test 05/13/16 05/13/16 05/13/16 05/13/16 12:40 12:45 13:00 15:00 Blood Gas Puncture Site LT RADIAL Blood Gas Patient Temperature 98.6 Blood Gas HCO3 23 mmol/L Blood Gas Base Excess -1.0 mmol/L Blood Gas Oxygen Saturation 94 % Arterial Blood pH 7.40 Arterial Blood Partial 39 mmHg Pressure CO2 Arterial Blood Partial 132 mmHG Pressure O2 Arterial Blood Oxygen Content 14.9 Vol % Arterial Blood 1.6 % Carboxyhemoglobin Arterial Blood Methemoglobin 2.8 % Blood Gas Hemoglobin 11.2 G/DL Oxygen Delivery Device BiPAP Blood Gas Ventilator Setting IPAP15/[id number] Blood Gas Inspired Oxygen 100 % White Blood Count 17.7 TH/MM3 Red Blood Count 4.01 MIL/MM3 Hemoglobin 11.0 GM/DL Hematocrit 34.2 % Mean Corpuscular Volume 85.3 FL Mean Corpuscular Hemoglobin 27.3 PG Mean Corpuscular Hemoglobin 32.0 % Concent Red Cell Distribution Width 17.6 % Platelet Count 248 TH/MM3 Mean Platelet Volume 9.3 FL Neutrophils (%) (Auto) 77.3 % Lymphocytes (%) (Auto) 10.1 % Monocytes (%) (Auto) 7.4 % Eosinophils (%) (Auto) 5.0 % Basophils (%) (Auto) 0.2 % Neutrophils # (Auto) 13.7 TH/MM3 Lymphocytes # (Auto) 1.8 TH/MM3 Monocytes # (Auto) 1.3 TH/MM3 Eosinophils # (Auto) 0.9 TH/MM3 Basophils # (Auto) 0.0 TH/MM3 CBC Comment DIFF FINAL Differential Comment Sodium Level 141 MEQ/L Potassium Level 3.5 MEQ/L Chloride Level 103 MEQ/L Carbon Dioxide Level 24.4 MEQ/L Anion Gap 14 MEQ/L Blood Urea Nitrogen 26 MG/DL Creatinine 1.10 MG/DL Estimat Glomerular Filtration 50 ML/MIN Rate Random Glucose 195 MG/DL Lactic Acid Level 3.4 mmol/L 4.3 mmol/L Calcium Level 9.0 MG/DL Magnesium Level 1.8 MG/DL Total Bilirubin 0.4 MG/DL Aspartate Amino Transf 10 U/L (AST/SGOT) Alanine Aminotransferase 19 U/L (ALT/SGPT) Alkaline Phosphatase 82 U/L Troponin I LESS THAN 0.02 NG/ML B-Type Natriuretic Peptide 37 PG/ML Total Protein 7.9 GM/DL Albumin 3.0 GM/DL Urine Color YELLOW Urine Turbidity CLEAR Urine pH 6.0 Urine Specific [place] 1.020 Urine Protein 30 mg/dL Urine Glucose (UA) NEG mg/dL Urine Ketones NEG mg/dL Urine Occult Blood NEG Urine Nitrite NEG Urine Bilirubin NEG Urine Urobilinogen LESS THAN 2.0 MG/DL Urine Leukocyte Esterase NEG Urine Mucus FEW /lpf Microscopic Urinalysis Comment CATH-CULT NOT IND Test 05/13/16 05/13/16 05/14/16 20:40 21:01 07:15 Nasal Screen MRSA (PCR) POSITIVE Lactic Acid Level 4.0 mmol/L 1.2 mmol/L White Blood Count 14.3 TH/MM3 Red Blood Count 3.62 MIL/MM3 Hemoglobin 9.8 GM/DL Hematocrit 31.0 % Mean Corpuscular Volume 85.6 FL Mean Corpuscular Hemoglobin 27.0 PG Mean Corpuscular Hemoglobin 31.5 % Concent Red Cell Distribution Width 16.8 % Platelet Count 205 TH/MM3 Mean Platelet Volume 8.9 FL Neutrophils (%) (Auto) 91.0 % Lymphocytes (%) (Auto) 6.0 % Monocytes (%) (Auto) 2.9 % Eosinophils (%) (Auto) 0.0 % Basophils (%) (Auto) 0.1 % Neutrophils # (Auto) 13.0 TH/MM3 Lymphocytes # (Auto) 0.9 TH/MM3 Monocytes # (Auto) 0.4 TH/MM3 Eosinophils # (Auto) 0.0 TH/MM3 Basophils # (Auto) 0.0 TH/MM3 CBC Comment DIFF FINAL Differential Comment Sodium Level 144 MEQ/L Potassium Level 4.0 MEQ/L Chloride Level 111 MEQ/L Carbon Dioxide Level 24.6 MEQ/L Anion Gap 8 MEQ/L Blood Urea Nitrogen 28 MG/DL Creatinine 0.91 MG/DL Estimat Glomerular Filtration 62 ML/MIN Rate Random Glucose 171 MG/DL Calcium Level 8.3 MG/DL Phosphorus Level 3.6 MG/DL Magnesium Level 2.1 MG/DL Imaging Last Impressions Chest X-Ray 05/13/16 1234 Signed Impressions: Service Date/Time: Friday, May 13, 2016 12:58 - CONCLUSION: Mild diffuse interstitial prominence. No focal infiltrate is seen. Jean Chatterjee MD Objective Remarks GENERAL: Patient is 66yo lying in bed in NAD. SKIN: Warm and dry. HEAD: Normocephalic. EYES: No scleral icterus. No injection or drainage. NECK: Supple, trachea midline. No JVD or lymphadenopathy. CARDIOVASCULAR: Regular rate and rhythm without murmurs, gallops, or rubs. RESPIRATORY: Breath sounds equal bilaterally. Few scattered wheezing GASTROINTESTINAL: Abdomen soft, non-tender, nondistended. MUSCULOSKELETAL: No cyanosis, or edema. BACK: Nontender without obvious deformity. No CVA tenderness. Neuro: Awake and alert. A/P Assessment and Plan 1. Acute hypoxemic respiratory insufficiency. 2. COPD exacerbation. 3. Tracheobronchitis. 4. Leukocytosis. 5. Lactic acidemia. 6. Hyperglycemia. 7. Hypertension. 8. Hypothyroidism. 9. History of seizure disorder. Plan Neuro: Awake, alert, Monitor neuro status and avoid any sedatives. Continue with Keppra 500mg BID Pulm: Continue to wean down oxygen as tolerated and maintain sats > 92%. Bronchodilators(DuoNeb,Spiriva and Symbicort, Pulmicort). Solu-Medrol 60 mg IV q. 8. NIPPV p.r.n. for respiratory distress. Pulm eval CV: Monitor HR and BP and maintain MAP > 65mmHg. Lactic 1.2 today from 4.3 on Amlodipine 10 mg daily, Lopressor 12.5 mg p.o. q. 12. : Monitor renal function, intakes and outputs and electrolyte replacement per protocol. On NS@100ml/hr GI: Start heart healthy diet as arabella On Protonix for GI prophylaxis and history of GERD ID: Continue with abx( cefepime, Azithromycin) Monitor for signs of infections( fever and WBC) Nasal aspirate negative for influenza. Heme: Monitor CBC. Endo: medium sliding scale insulin with Accu-Chek q. 6-hour for glycemic control On Synthroid per primary team. GI prophylaxis with Protonix and DVT prophylaxis with SCDs and heparin subcu. Level 3 Zaria Padilla MD May 14, 2016 09:02
[2016-05-14] MEDS: LEVOTHYROXINE SODIUM 200 MCG TAB PO SCH (09:23)
[2016-05-14] MEDS: AZITHROMYCIN INJ 500 MG in SODIUM CHLOR 0.9% 250 ML INJ 250 ML IV SCH (11:57)
[2016-05-14] MEDS: LORazepam 0.5 MG TAB PO PRN (14:09)
--- NOTE | 2016-05-14 14:40 | HHI.PR ---
Subjective Remarks Having cough dry in nature Still some shortness of breath and wheezing Pain in chest and abdomen and back area with coughing only Feeling tired No other complaint No BM from past 2 days Otherwise review of system for 12 point unremarkable Objective Objective Results - Vital Signs Date Time Temp Pulse Resp B/P Pulse Ox O2 Delivery O2 Flow Rate FiO2 05/14/16 08:37 100 Partial Rebreather 12.00 05/14/16 08:00 92 05/14/16 08:00 97.8 98 18 120/57 100 05/14/16 07:16 24 05/14/16 06:00 80 05/14/16 06:00 80 05/14/16 04:00 98.6 81 16 103/58 100 05/14/16 04:00 81 05/14/16 02:00 83 05/14/16 00:00 98.2 83 16 90/53 99 05/14/16 00:00 83 05/13/16 22:00 80 05/13/16 20:14 99 Partial Rebreather 05/13/16 20:00 86 05/13/16 20:00 97.8 86 16 85/53 99 05/13/16 18:00 86 05/13/16 17:41 98.9 99 22 99/53 98 05/13/16 16:01 98.5 102 22 105/72 97 CPAP 80 I/O 05/13/16 05/13/16 05/13/16 05/14/16 05/14/16 05/14/16 07:00 15:00 23:00 07:00 15:00 23:00 Intake Total 637 ml 944 ml Output Total 400 ml 400 ml Balance 237 ml 544 ml Intake Oral 120 ml 120 ml IV Total 517 ml 824 ml Output Urine Total 400 ml 400 ml Result Diagram: 05/14/1671405/14/16714 Other Results Laboratory Tests Test 05/13/16 05/13/16 05/13/16 05/14/16 15:00 20:40 21:01 07:15 Lactic Acid Level 4.3 4.0 1.2 Nasal Screen MRSA (PCR) POSITIVE White Blood Count 14.3 Red Blood Count 3.62 Hemoglobin 9.8 Hematocrit 31.0 Mean Corpuscular Volume 85.6 Mean Corpuscular Hemoglobin 27.0 Mean Corpuscular Hemoglobin 31.5 Concent Red Cell Distribution Width 16.8 Platelet Count 205 Mean Platelet Volume 8.9 Neutrophils (%) (Auto) 91.0 Lymphocytes (%) (Auto) 6.0 Monocytes (%) (Auto) 2.9 Eosinophils (%) (Auto) 0.0 Basophils (%) (Auto) 0.1 Neutrophils # (Auto) 13.0 Lymphocytes # (Auto) 0.9 Monocytes # (Auto) 0.4 Eosinophils # (Auto) 0.0 Basophils # (Auto) 0.0 CBC Comment DIFF FINAL Differential Comment Sodium Level 144 Potassium Level 4.0 Chloride Level 111 Carbon Dioxide Level 24.6 Anion Gap 8 Blood Urea Nitrogen 28 Creatinine 0.91 Estimat Glomerular Filtration 62 Rate Random Glucose 171 Calcium Level 8.3 Phosphorus Level 3.6 Magnesium Level 2.1 Date/Time Procedure Status Source Growth 05/13/16 13:30 Influenza Types A,B Antigen (MARIAM) - Final Complete Nasal Aspirate NEGATIVE FOR FLU A AND B ANTIGEN.... 05/13/16 12:45 Aerobic Blood Culture - Preliminary Resulted Blood Peripheral NO GROWTH IN 1 DAY 05/13/16 12:45 Anaerobic Blood Culture - Preliminary Resulted Blood Peripheral NO GROWTH IN 1 DAY Physical Exam Physical Exam GENERAL: The patient is alert, awake on nasal cannula oxygen VITAL SIGNS: Reviewed HEENT: Head is atraumatic, normocephalic. Eyes negative conjunctivae injection or icterus. Mouth unremarkable. NECK: A very short neck. Central trachea. Unable to see clearly JVD. CHEST: Decreased air entry. Bibasilarly expiratory wheezing scattered. Coarse respirations. No accessory muscle use for respirations. CARDIOVASCULAR: S1 and S2 audible. Unable to hear any S3 gallop or murmur. ABDOMEN: Soft, non-tender. No organomegaly. Positive bowel sounds. MUSCULOSKELETAL: Extremities, no cyanosis noted. No edema. DISH NETWORK INSTALLER: Alert, awake. Seems like normal facial features. Normal speech. Moving all extremities. SKIN: Warm and dry. PSYCHIATRIC: Appropriate mood and affect. A/P Assessment and Plan 1. Fever. Tachycardia with increased lactic acid 3.4, sepsis on admission. 2. COPD exacerbation. 3. Likely pneumonia developing / bronchitis. 4. Acute respiratory failure. 5. Leukocytosis. 6. History of seizure disorder. 7. History of gastritis. 8. History of multiple sclerosis. 9. Hypertension. PLAN Seen in ICU. IV antibiotics broad-spectrum. IV Solu-Medrol. Breathing treatments. Appreciate Nutrition Coordinator consult and input. Continue home medication as indicated. Labs reviewed. Follow cultures. GI prophylaxis. DVT prophylaxis. Medications reviewed Cough medication with codeine Condition discussed with the patient. Discussed with RN Condition guarded Prognosis guarded. Further recommendation will follow. Sabrina Rajput MD May 14, 2016 14:39
[2016-05-14] MEDS: guaiFENesin/CODEINE SYRUP 200 MG/20 MG/10 ML CUP PO PRN ×2 (15:55→20:34)
--- NOTE | 2016-05-14 19:41 | EKG ---
Date Performed: 05/13/2016 Time Performed: 12:58:49 PTAGE: 66 years EKG: SINUS TACHYCARDIA NONSPECIFIC T-WAVE ABNORMALITY ABNORMAL RHYTHM ECG PREVIOUS TRACING : 09/14/2015 10.28 DOCTOR: Paddy Law Interpretating Date/Time 05/14/2016 19:35:36
[2016-05-14] MEDS: MIRTAZAPINE 15 MG TAB PO SCH (20:29)
[2016-05-14] MEDS: BUDESONIDE-FORMOTEROL 160/4.5 MCG INHALER INH SCH (20:29)
--- NOTE | 2016-05-14 21:32 | RADRPT ---
EXAM DATE/TIME: 05/14/2016 21:05 [place] COMPARISON: CT PULMONARY ANGIOGRAM, September 11, 2015, 16:42. INDICATIONS : Wheezing and worsening shortness of breath. RADIATION DOSE: 9.59 CTDIvol (mGy) MEDICAL HISTORY : Chronic obstructive pulmonary disease. Hypertension. SURGICAL HISTORY : None. ENCOUNTER: Initial ACUITY: 1 day PAIN SCALE: 0/10 LOCATION: Bilateral chest TECHNIQUE: Volumetric scanning of the chest was performed. Using automated exposure control and adjustment of t he mA and/or kV according to patient size, radiation dose was kept as low as reasonably achievable to obtain optimal diagnostic quality images. FINDINGS: Posterior predominant bibasilar infiltrates are seen, left more so than right. No large effusion. No pneumothorax. Heart size stable, within normal limits. There is coronary artery calcification again noted. 19 by 35mm subcarinal lymph node present, larger than before. Old bilateral rib fractures are again seen. Small hiatal hernia again noted. There is a 18 mm cyst ag ain seen of the left hepatic lobe. CONCLUSION: 1. Nonspecific bibasilar consolidation, presumably infectious or inflammatory. 2. Nonspecific subcarinal lymph node. 3. Coronary artery calcification. 4. Small hiatal hernia again seen. 5. Old rib fractures again seen. Luiz Oates MD on May 14, 2016 at 21:29 Board Certified Radiologist. This report was verified electronically.
[2016-05-14] MEDS: MUPIROCIN 2% OINT 1 APPLIC/GM SYR NASAL SCH (22:37)
[2016-05-15] VITALS (12 sets, daily range): BP systolic 100–145; BP diastolic 56–76; PULSE 77–98; RESP 14–22; TEMP 97.6–98.4; O2SAT 93–96
[2016-05-15] MEDS: ACETAMINOPHEN/HYDROcodone 325 MG/5 MG TAB PO SCH ×6 (03:24→23:00)
[2016-05-15] MEDS: CEFEPIME INJ 2,000 MG in SODIUM CHLORIDE 0.9% INJ 100 ML IV SCH ×2 (03:25→17:10)
[2016-05-15] MEDS: CHLORHEXIDINE GLUCONATE 2 % 1 PACK (2 CLOTHS)(taper/protocol) TOP SCH (04:00)
[2016-05-15] MEDS: HEPARIN SODIUM - SQ 10,000 UNITS/ML VIAL SQ SCH ×2 (05:50→17:09)
[2016-05-15] MEDS: INSULIN NovoLIN REGULAR SUPPLEMENTAL SCALE SQ SCH ×4 (05:50→23:36)
[2016-05-15] MEDS: SODIUM CHLOR 0.9% 1000 ML INJ 1,000 ML IV SCH (05:51)
[2016-05-15] MEDS: LEVOTHYROXINE SODIUM 25 MCG TAB PO SCH (06:02)
[2016-05-15 07:04] LABS: AUTOMATED NEUTROPHIL # 11.2 TH/MM3 (1.8-7.7); BASOPHIL % 0.1 % (0.0-2.0); HEMATOCRIT 29.5 % (35.0-46.0); HEMO FLAGS DIFF FINAL; LYMPH % 4.3 % (9.0-44.0); LYMPHOCYTE # 0.5 TH/MM3 (1.0-4.8); MEAN CELL VOLUME 85.5 FL (80.0-100.0); MEAN CORPUSCULAR HEMOGLOBIN 26.3 PG (27.0-34.0); MEAN CORPUSCULAR HGB CONC 30.8 % (32.0-36.0); MONO % 6.1 % (0.0-8.0); NEUT % 89.5 % (16.0-70.0); PLATELET COUNT 199 TH/MM3 (150-450); RED BLOOD COUNT 3.45 MIL/MM3 (4.00-5.30); RED CELL DISTRIBUTION WIDTH 16.9 % (11.6-17.2); WHITE BLOOD COUNT 12.5 TH/MM3 (4.0-11.0)
[2016-05-15 07:31] LABS: BICARBONATE 25.1 MEQ/L (21.0-32.0); POTASSIUM 3.6 MEQ/L (3.5-5.1)
--- NOTE | 2016-05-15 08:53 | MB ---
cc: Daniela TINOCO DATE OF CONSULTATION: 05/14/2016 HISTORY OF PRESENT ILLNESS Ms. Tejeda is a 66-year-old white female with a history of COPD, former smoker, quit smoking several years ago, also morbidly obese. She has severe gastroesophageal reflux disease with Bueno's esophagus followed by Dr. Peterson and has had at least two episodes of pneumonia with significant respiratory insufficiency in the last year. She presented on this occasion with septicemia and respiratory insufficiency but has improved considerably over the first 24-36 hours. I am asked to see her for further evaluation and therapy. The patient is awake, alert, comfortable at rest but has a cough. Sputum has not been obtained yet. She has had blood cultures which are negative, influenza antigens from the nasal aspirate which are negative, and she has a nasal screen which is positive for MRSA. She is not aware of ever being treated from MRSA. Arterial blood gas on BiPAP yesterday was pH 7.4, PCO2 39, PO2 132. I reviewed a CT scan that was done on an earlier admission and she had bilateral lower lobe bronchiectasis with some changes and emphysema as well. White count was 17,000 on admission, fell to 14,000 today. BUN and creatinine are 28 and 0.9. Lactic acid was elevated on admission and is now normal, and her BNP was normal. SOCIAL HISTORY Smoking for many years but quit several years ago. She is currently living in an assisted living facility where she has been for several years. No alcohol use. ADDITIONAL PAST HISTORY 1. Endometrial carcinoma. 2. History of Graves disease. 3. History of seizure disorder. 4. Prior hysterectomy. 5. Cholecystectomy. 6. Kyphoplasty. ALLERGIES 1. PENICILLIN. 2. ASPIRIN. 3. AMITRIPTYLINE. MEDICATIONS Medications are reviewed and recorded in the EMR. REVIEW OF SYSTEMS She has had active reflux within the last several weeks. She was endo scoped about 4 months ago, monitoring Bueno's disease. She has had no hemoptysis. The only pain in her chest is related to coughing. No chronic edema. PHYSICAL EXAMINATION GENERAL: An obese white female, comfortable at rest. VITAL SIGNS: Heart rate 106, temperature 98, blood pressure 115/55, respirations 18-22. Her saturation is 95%. HEENT: Sclera anicteric. Mucous membranes are moist. NECK: Neck veins are not distended. CHEST: Chest is mildly congested particularly at the bases. No audible wheezing. HEART: Regular rhythm. No harsh murmur. No audible S3. ABDOMEN: Obese abdomen. EXTREMITIES: No peripheral edema or calf tenderness. No cyanosis or clubbing. DISCUSSION Ms. Tejeda presents with a picture of sepsis and respiratory insufficiency. I suspect she has basilar pneumonia based on the previous CT scans. Chest x-ray on this admission shows some diffuse interstitial prominence but it is somewhat obscured by her size and weight. I would continue her aerosolized bronchodilators at a lesser frequency, decrease the dose of steroids. Continue the current antibiotic regimen of Zithromax and cefepime pending a sputum culture. I am also going to order a follow-up CT of her thorax to particularly look at the bases of her lungs which are obscured on these plain films. Further diagnostic and/or therapeutic intervention will depend on her ongoing clinical course and response to therapy. R. MD GALEN Ballard/LOGAN /6:25 PM /8:44 AM
[2016-05-15] MEDS: guaiFENesin SOLUTION 200 MG/10 ML CUP PO SCH (09:07)
[2016-05-15] MEDS: SERTRALINE HCL 50 MG TAB PO SCH (09:08)
[2016-05-15] MEDS: GABAPENTIN 100 MG CAP PO SCH ×3 (09:08→17:11)
[2016-05-15] MEDS: PANTOPRAZOLE SOD 20 MG DELAYED RELEASE TAB PO SCH (09:08)
[2016-05-15] MEDS: LEVOTHYROXINE SODIUM 200 MCG TAB PO SCH (09:08)
[2016-05-15] MEDS: methylPREDNISolone SOD SUCC 125 MG/2 ML VIAL IV PUSH SCH (09:08)
[2016-05-15] MEDS: SUCRALFATE 1 GM TAB PO SCH ×3 (09:08→17:10)
[2016-05-15] MEDS: LACTOBACILLUS ACIDOPHILUS TAB PO SCH ×2 (09:08→21:29)
[2016-05-15] MEDS: levETIRAcetam 500 MG TAB PO SCH ×2 (09:08→21:29)
[2016-05-15] MEDS: METOPROLOL TARTRATE 25 MG TAB PO SCH ×2 (09:08→21:29)
[2016-05-15] MEDS: SODIUM CHLORIDE 0.9% FLUSH 5 ML FLUSH FLUSH SCH ×2 (09:09→21:00)
[2016-05-15] MEDS: MUPIROCIN 2% OINT 1 APPLIC/GM SYR NASAL SCH ×2 (09:09→21:31)
[2016-05-15] MEDS: RESP: ALBUTEROL 2.5 MG/IPRATROPIUM 0.5 MG NEB (SCH) NEB ×2 (09:46→14:17)
--- NOTE | 2016-05-15 09:54 | HHI.CCPN ---
Subjective Remarks/Hospital Course Patient is 66-year-old female with past medical history of COPD, hypertension, hypothyroidism, gastroesophageal reflux disease, hypertension, and morbid obesity who presented to the [facility] Emergency Department by EMS with respiratory distress and hypoxemia. The patient resides in a local intermediate and she received a bronchodilator treatment along with Solu-Medrol en route. In the emergency department, she was found to have an O2 saturation of 86 % and had a rectal temperature of 101.9 in the emergency department. Also she reports coughing. According to the emergency department records, the patient has had several pneumonias in the past. She is a poor historian. She denies any nausea, vomiting, diarrhea or any constitutional symptoms. On arrival to the emergency department, she was tachycardiac with heart rate of 102 to 118 and tachypneic. She was placed on BiPAP 15/7 with 100% FIO2. An ABG was performed at 12:40, which showed a pH of 7.40, CO2 39, pAO2 132, bicarb 23, saturation of 94%. Chest x-ray on arrival showed mild diffuse interstitial prominence, no focal infiltrates seen. Laboratory data significant for leukocytosis with a WBC of 17.7 and her initial lactic acid level was 3.4, which increased to 4.3 at 1500. She was given azithromycin, aztreonam, Tylenol, bronchodilator treatment and one liter of normal saline. The patient was transferred to [facility]. Rajput's service from the [facility] and critical care medicine was consulted for critical care management. The patient is currently off on BiPAP and is on partial rebreather with saturation of 98% to 99% and blood pressure 110/55. Her nasal aspirate for influenza A and B antigen is negative and two sets of blood cultures have been performed in the ED. 05/14 No events overnight. On partial rebreather with good sats. Afebrile. Lactic acid resolved. 05/15: Resting comfortably. On 4 L nasal cannula. Does not appear to be in any acute distress. Objective Vital Signs Date Time Temp Pulse Resp B/P Pulse Ox O2 Delivery O2 Flow Rate FiO2 05/15/16 09:48 96 Nasal Cannula 4.00 05/15/16 08:00 98.2 88 22 144/76 05/13/16 16:01 80 Intake and Output 05/14/16 05/14/16 05/15/16 08:00 16:00 00:00 Intake Total 944 ml 1104 ml 1370 ml Output Total 400 ml 650 ml 550 ml Balance 544 ml 454 ml 820 ml Result Diagram: 05/15/16 0624 05/15/16 0624 Other Results Microbiology Date/Time Procedure Status Source Growth 05/13/16 13:30 Influenza Types A,B Antigen (MARIAM) - Final Complete Nasal Aspirate NEGATIVE FOR FLU A AND B ANTIGEN.... Imaging Last Impressions Chest X-Ray 05/13/16 1234 Signed Impressions: Service Date/Time: Friday, May 13, 2016 12:58 - CONCLUSION: Mild diffuse interstitial prominence. No focal infiltrate is seen. Jean Chatterjee MD Objective Remarks GENERAL: Patient is 66yo lying in bed in NAD. SKIN: Warm and dry. HEAD: Normocephalic. EYES: No scleral icterus. No injection or drainage. NECK: Supple, trachea midline. No JVD or lymphadenopathy. CARDIOVASCULAR: Regular rate and rhythm without murmurs, gallops, or rubs. RESPIRATORY: Breath sounds equal bilaterally. Few scattered wheezing GASTROINTESTINAL: Abdomen soft, non-tender, nondistended. MUSCULOSKELETAL: No cyanosis, or edema. BACK: Nontender without obvious deformity. No CVA tenderness. Neuro: Awake and alert. A/P Assessment and Plan 1. Acute hypoxemic respiratory insufficiency. 2. COPD exacerbation. 3. Tracheobronchitis. 4. Leukocytosis. 5. Lactic acidemia. 6. Hyperglycemia. 7. Hypertension. 8. Hypothyroidism. 9. History of seizure disorder. Plan Neuro: Awake, alert, Monitor neuro status and avoid any sedatives. Continue with Keppra 500mg BID Pulm: Continue to wean down oxygen as tolerated and maintain sats > 92%. Bronchodilators(DuoNeb,Spiriva and Symbicort, Pulmicort). Solu-Medrol 60 mg IV q. 8. NIPPV p.r.n. for respiratory distress. Pulm eval noted. CV: Monitor HR and BP and maintain MAP > 65mmHg. on Amlodipine 10 mg daily, Lopressor 12.5 mg p.o. q. 12. : Monitor renal function, intakes and outputs and electrolyte replacement per protocol. On NS@100ml/hr GI: Start heart healthy diet as arabella On Protonix for GI prophylaxis and history of GERD ID: Continue with abx( cefepime, Azithromycin) Monitor for signs of infections( fever and WBC) Nasal aspirate negative for influenza. Heme: Monitor CBC. Endo: medium sliding scale insulin with Accu-Chek q. 6-hour for glycemic control On Synthroid per primary team. GI prophylaxis with Protonix and DVT prophylaxis with SCDs and heparin subcu. Patient will be transferred out of ICU. Critical care signing off, please reconsult if needed. Level 3 Shawn Cedeno MD May 15, 2016 09:54
[2016-05-15] MEDS: AZITHROMYCIN INJ 500 MG in SODIUM CHLOR 0.9% 250 ML INJ 250 ML IV SCH (11:07)
[2016-05-15] MEDS: LORazepam 0.5 MG TAB PO PRN (11:07)
--- NOTE | 2016-05-15 12:02 | HHI.PR ---
Subjective Subjective Remarks inc. cough, wheezing not completing neb treatment, removing mask doesn't want to sit up in bed cp with coughing no sputum no fever anxious [place] Review of Systems Constitutional Constitutional Remarks 12 point ROS completed, unreliable Vitals/Results Intake & Output 05/14/16 05/14/16 05/15/16 15:00 23:00 07:00 Intake Total 1104 ml 1370 ml 910 ml Output Total 650 ml 550 ml 1300 ml Balance 454 ml 820 ml -390 ml Intake Oral 300 ml 480 ml 240 ml IV Total 804 ml 890 ml 670 ml Output Urine Total 650 ml 550 ml 1300 ml Vital Signs Vital Signs Date Time Temp Pulse Resp B/P Pulse Ox O2 Delivery O2 Flow Rate FiO2 05/15/16 09:48 96 Nasal Cannula 4.00 05/15/16 08:00 98.2 88 22 144/76 94 05/15/16 08:00 87 05/15/16 06:00 85 05/15/16 04:00 88 05/15/16 04:00 97.7 88 18 145/65 95 05/15/16 02:00 77 05/15/16 00:00 98.4 80 14 100/56 93 05/15/16 00:00 80 05/14/16 23:19 16 05/14/16 22:00 90 05/14/16 20:23 95 Nasal Cannula 4.00 05/14/16 20:00 106 05/14/16 20:00 98.1 106 19 115/58 95 05/14/16 18:00 102 05/14/16 16:00 110 05/14/16 16:00 98.2 110 20 110/56 94 05/14/16 14:00 106 05/14/16 12:00 108 05/14/16 12:00 98.0 108 20 115/55 94 CBC/BMP: 05/15/16 0624 05/15/16 0624 Lab Results Laboratory Tests Test 05/15/16 06:24 White Blood Count 12.5 TH/MM3 Red Blood Count 3.45 MIL/MM3 Hemoglobin 9.1 GM/DL Hematocrit 29.5 % Mean Corpuscular Volume 85.5 FL Mean Corpuscular Hemoglobin 26.3 PG Mean Corpuscular Hemoglobin 30.8 % Concent Red Cell Distribution Width 16.9 % Platelet Count 199 TH/MM3 Mean Platelet Volume 8.7 FL Neutrophils (%) (Auto) 89.5 % Lymphocytes (%) (Auto) 4.3 % Monocytes (%) (Auto) 6.1 % Eosinophils (%) (Auto) 0.0 % Basophils (%) (Auto) 0.1 % Neutrophils # (Auto) 11.2 TH/MM3 Lymphocytes # (Auto) 0.5 TH/MM3 Monocytes # (Auto) 0.8 TH/MM3 Eosinophils # (Auto) 0.0 TH/MM3 Basophils # (Auto) 0.0 TH/MM3 CBC Comment DIFF FINAL Differential Comment Sodium Level 143 MEQ/L Potassium Level 3.6 MEQ/L Chloride Level 108 MEQ/L Carbon Dioxide Level 25.1 MEQ/L Anion Gap 10 MEQ/L Blood Urea Nitrogen 20 MG/DL Creatinine 1.07 MG/DL Estimat Glomerular Filtration 51 ML/MIN Rate Random Glucose 173 MG/DL Calcium Level 8.5 MG/DL Physical Exam General General Appearance: Well Developed, Anxious, Obese Eyes Eye Exam: Pupils Equal, Pupils Reactive Ears & Nose Ears & Nose Exam: Nasal Mucosa [place] Throat Throat Exam: Oral Mucosa [place] & Moist Neck Neck Exam: Neck Supple, Trachea Midline Pulmonary Resp Exam: Rhonchi Resp Remarks diffuse exp. wheezing, scattered ronchi, cough, non productive Cardiology CV Exam: Regular Gastrointestinal/Abdomen GI Exam: Soft, Non-Tender, Bowel Sounds Present, Non-Distended Musculoskeletal MS Exam: Joints Intact Integumentary Skin Exam: Warm, Dry Extremeties Extremities Exam: No Edema, Pedal Pulses Palpable Neurologic Neuro Exam: Alert, Awake, Oriented, Speech Clear, Moving All Extremities, No Focal Deficits VTE Prophylaxis VTE Prophylaxis Meds: Heparin PUD Prophylasis PUD Prophylaxis: Protonix Assessment/Plan Problem List: (1) Sepsis (2) Respiratory distress (3) Acute exacerbation of chronic obstructive pulmonary disease (COPD) (4) PNA (pneumonia) (5) Hypoxia (6) GERD (gastroesophageal reflux disease) (7) History of multiple sclerosis (8) HTN (hypertension) (9) Hypothyroidism (10) Seizure disorder Assessment/Plan Appreciate CCM input, signed off no longer on BIPAP, on NC 4L/NC appreciate pulm input CT chest results noted, bibasilar consolidation continue with IV antibiotics broad-spectrum. BC 1/2, pleomorphic GPC rods, sens. pending IV IV Solu-Medrol/duonebs Antitussives monitor renal function cautious hydration PT for eval and tx Heparin for DVT prophylaxis PT eval and tx PPI for GI prophylaxis Labs in am waiting to tx to cardiac tele, no beds D/W RN D/W Dr. Reynolds D/W pt This patient was seen by myself and Dr. Reynolds, this note is written on his behalf. Problem Qualifiers (1) Sepsis: Qualified Code: A41.9 - Sepsis, due to unspecified organism (2) PNA (pneumonia): Qualified Code: J18.9 - Pneumonia due to infectious organism, unspecified laterality, unspecified part of lung (3) GERD (gastroesophageal reflux disease): Qualified Code: K21.9 - Gastroesophageal reflux disease, esophagitis presence not specified (4) HTN (hypertension): Qualified Code: I15.9 - Secondary hypertension (5) Hypothyroidism: Qualified Code: E03.8 - Other specified hypothyroidism Laurence Tian May 15, 2016 12:02
[2016-05-15] MEDS: guaiFENesin/CODEINE SYRUP 200 MG/20 MG/10 ML CUP PO PRN (13:41)
[2016-05-15] MEDS: MIRTAZAPINE 15 MG TAB PO SCH (21:29)
[2016-05-16] VITALS (9 sets, daily range): BP systolic 133–168; BP diastolic 63–77; PULSE 83–97; RESP 16–24; TEMP 97.3–97.9; O2SAT 93–96
[2016-05-16] MEDS: ACETAMINOPHEN/HYDROcodone 325 MG/5 MG TAB PO SCH ×6 (03:43→21:47)
[2016-05-16] MEDS: CEFEPIME INJ 2,000 MG in SODIUM CHLORIDE 0.9% INJ 100 ML IV SCH ×2 (03:45→15:49)
[2016-05-16] MEDS: SODIUM CHLOR 0.9% 1000 ML INJ 1,000 ML IV SCH (03:49)
[2016-05-16] MEDS: CHLORHEXIDINE GLUCONATE 2 % 1 PACK (2 CLOTHS)(taper/protocol) TOP SCH (03:50)
[2016-05-16] MEDS: guaiFENesin/CODEINE SYRUP 200 MG/20 MG/10 ML CUP PO PRN (03:57)
[2016-05-16] MEDS: INSULIN NovoLIN REGULAR SUPPLEMENTAL SCALE SQ SCH ×4 (05:15→21:47)
[2016-05-16] MEDS: LEVOTHYROXINE SODIUM 25 MCG TAB PO SCH (07:13)
[2016-05-16] MEDS: HEPARIN SODIUM - SQ 10,000 UNITS/ML VIAL SQ SCH ×2 (07:14→18:31)
[2016-05-16 07:27] LABS: HEMATOCRIT 33.1 % (35.0-46.0); MEAN CELL VOLUME 85.5 FL (80.0-100.0); MEAN CORPUSCULAR HEMOGLOBIN 26.6 PG (27.0-34.0); MEAN CORPUSCULAR HGB CONC 31.1 % (32.0-36.0); PLATELET COUNT 237 TH/MM3 (150-450); RED BLOOD COUNT 3.87 MIL/MM3 (4.00-5.30); RED CELL DISTRIBUTION WIDTH 16.6 % (11.6-17.2); REVIEW FLAG FINAL; WHITE BLOOD COUNT 11.3 TH/MM3 (4.0-11.0)
[2016-05-16 07:52] LABS: BICARBONATE 27.7 MEQ/L (21.0-32.0); POTASSIUM 3.5 MEQ/L (3.5-5.1)
[2016-05-16] MEDS: RESP: ALBUTEROL 2.5 MG/IPRATROPIUM 0.5 MG NEB (SCH) NEB ×3 (08:18→19:33)
[2016-05-16] MEDS ORDERED: methylPREDNISolone SOD SUCC 125 MG/2 ML VIAL IV PUSH SCH (09:00)
[2016-05-16] MEDS: BUDESONIDE-FORMOTEROL 160/4.5 MCG INHALER INH SCH ×3 (09:00→21:00)
[2016-05-16] MEDS: SODIUM CHLORIDE 0.9% FLUSH 5 ML FLUSH FLUSH SCH ×2 (09:00→21:46)
[2016-05-16] MEDS: MUPIROCIN 2% OINT 1 APPLIC/GM SYR NASAL SCH ×2 (10:23→21:45)
[2016-05-16] MEDS: LEVOTHYROXINE SODIUM 200 MCG TAB PO SCH (10:24)
[2016-05-16] MEDS: guaiFENesin SOLUTION 200 MG/10 ML CUP PO SCH (10:24)
[2016-05-16] MEDS: SERTRALINE HCL 50 MG TAB PO SCH (10:24)
[2016-05-16] MEDS: METOPROLOL TARTRATE 25 MG TAB PO SCH ×2 (10:24→21:45)
[2016-05-16] MEDS: LACTOBACILLUS ACIDOPHILUS TAB PO SCH ×2 (10:24→21:45)
[2016-05-16] MEDS: PANTOPRAZOLE SOD 20 MG DELAYED RELEASE TAB PO SCH (10:24)
[2016-05-16] MEDS: GABAPENTIN 100 MG CAP PO SCH ×3 (10:25→18:31)
[2016-05-16] MEDS: levETIRAcetam 500 MG TAB PO SCH ×2 (10:25→21:45)
[2016-05-16] MEDS: SUCRALFATE 1 GM TAB PO SCH ×3 (10:25→18:31)
[2016-05-16] MEDS: AZITHROMYCIN INJ 500 MG in SODIUM CHLOR 0.9% 250 ML INJ 250 ML IV SCH (11:01)
--- NOTE | 2016-05-16 13:05 | HHI.PR ---
Subjective Subjective Remarks more alert, oriented x 3 c/o "head buzzing" not coughing as much, less wheezing feeling very weak no cp sob with activity on oxygen at 2L/NC wants [place] catheter so she doesn't have to get out of bed Review of Systems Constitutional Constitutional Remarks 12 point ROS completed, unreliable Vitals/Results Intake & Output 05/15/16 05/15/16 05/16/16 15:00 23:00 07:00 Intake Total 1150 ml 0 ml 0 ml Output Total 1800 ml Balance -650 ml 0 ml 0 ml Intake Oral 300 ml 0 ml 0 ml IV Total 850 ml Output Urine Total 1800 ml # Voids 3 4 # Bowel Movements 1 0 Vital Signs Vital Signs Date Time Temp Pulse Resp B/P Pulse Ox O2 Delivery O2 Flow Rate FiO2 05/16/16 12:00 97.9 91 16 133/63 93 05/16/16 08:19 95 Nasal Cannula 2.00 05/16/16 08:00 97.4 94 16 160/77 94 05/16/16 05:13 97.3 83 20 157/73 96 05/15/16 23:44 97.6 80 18 139/59 96 05/15/16 20:55 97.6 86 18 136/63 93 05/15/16 16:00 86 05/15/16 14:00 86 CBC/BMP: 05/16/16 0626 05/16/16 0626 Lab Results Laboratory Tests Test 05/16/16 06:26 White Blood Count 11.3 TH/MM3 Red Blood Count 3.87 MIL/MM3 Hemoglobin 10.3 GM/DL Hematocrit 33.1 % Mean Corpuscular Volume 85.5 FL Mean Corpuscular Hemoglobin 26.6 PG Mean Corpuscular Hemoglobin 31.1 % Concent Red Cell Distribution Width 16.6 % Platelet Count 237 TH/MM3 Mean Platelet Volume 8.7 FL Sodium Level 139 MEQ/L Potassium Level 3.5 MEQ/L Chloride Level 103 MEQ/L Carbon Dioxide Level 27.7 MEQ/L Anion Gap 8 MEQ/L Blood Urea Nitrogen 22 MG/DL Creatinine 0.76 MG/DL Estimat Glomerular Filtration 76 ML/MIN Rate Random Glucose 88 MG/DL Calcium Level 8.8 MG/DL Physical Exam General General Appearance: Well Developed, Anxious, Obese Eyes Eye Exam: Pupils Equal, Pupils Reactive Ears & Nose Ears & Nose Exam: Nasal Mucosa [place] Throat Throat Exam: Oral Mucosa [place] & Moist Neck Neck Exam: Neck Supple, Trachea Midline Pulmonary Resp Exam: Rhonchi Resp Remarks exp. wheezing, scattered ronchi-improved Cardiology CV Exam: Regular Gastrointestinal/Abdomen GI Exam: Soft, Non-Tender, Bowel Sounds Present, Non-Distended Musculoskeletal MS Exam: Joints Intact Integumentary Skin Exam: Warm, Dry Extremeties Extremities Exam: Pedal Pulses Palpable, Trace Edema Neurologic Neuro Exam: Alert, Awake, Oriented, Speech Clear, Moving All Extremities, No Focal Deficits Psychiatric Psych Exam: Appropriate Responses VTE Prophylaxis VTE Prophylaxis Meds: Heparin PUD Prophylasis PUD Prophylaxis: Protonix Assessment/Plan Problem List: (1) Sepsis (2) Respiratory distress (3) Acute exacerbation of chronic obstructive pulmonary disease (COPD) (4) PNA (pneumonia) (5) Hypoxia (6) GERD (gastroesophageal reflux disease) (7) History of multiple sclerosis (8) HTN (hypertension) (9) Hypothyroidism (10) Seizure disorder Assessment/Plan Appreciate CCM input, signed off no longer on BIPAP, on [place] 2L/NC appreciate pulm input CT chest results noted, bibasilar consolidation continue with IV antibiotics broad-spectrum. BC 1/2, pleomorphic GPC rods, sens. pending IV IV Solu-Medrol/duonebs Antitussives monitor renal function cautious hydration PT for eval and tx Heparin for DVT prophylaxis PT eval and tx PPI for GI prophylaxis Labs reviewed, WBC up but on steroids, no fever improving slowly dc IVF informed johnston increases risk of infection, can use bed, pt. agreeable continue with present tx, not ready for discharge yet D/W RN D/W Dr. Reynolds D/W pt This patient was seen by myself and Dr. Reynolds, this note is written on his behalf. Problem Qualifiers (1) Sepsis: Qualified Code: A41.9 - Sepsis, due to unspecified organism (2) PNA (pneumonia): Qualified Code: J18.9 - Pneumonia due to infectious organism, unspecified laterality, unspecified part of lung (3) GERD (gastroesophageal reflux disease): Qualified Code: K21.9 - Gastroesophageal reflux disease, esophagitis presence not specified (4) HTN (hypertension): Qualified Code: I15.9 - Secondary hypertension (5) Hypothyroidism: Qualified Code: E03.8 - Other specified hypothyroidism Laurence Tian May 16, 2016 13:05
[2016-05-16] MEDS: MIRTAZAPINE 15 MG TAB PO SCH (21:45)
[2016-05-17] VITALS (10 sets, daily range): BP systolic 118–166; BP diastolic 57–77; PULSE 85–110; RESP 18–24; TEMP 97.4–98.1; O2SAT 91–95
[2016-05-17] MEDS: CHLORHEXIDINE GLUCONATE 2 % 1 PACK (2 CLOTHS)(taper/protocol) TOP SCH (04:00)
[2016-05-17] MEDS: INSULIN NovoLIN REGULAR SUPPLEMENTAL SCALE SQ SCH ×4 (05:15→22:19)
[2016-05-17] MEDS: ACETAMINOPHEN/HYDROcodone 325 MG/5 MG TAB PO SCH ×6 (05:19→22:12)
[2016-05-17] MEDS: CEFEPIME INJ 2,000 MG in SODIUM CHLORIDE 0.9% INJ 100 ML IV SCH (05:19)
[2016-05-17] MEDS: HEPARIN SODIUM - SQ 10,000 UNITS/ML VIAL SQ SCH ×2 (05:21→17:07)
[2016-05-17] MEDS: LEVOTHYROXINE SODIUM 25 MCG TAB PO SCH (06:12)
[2016-05-17] MEDS: RESP: ALBUTEROL 2.5 MG/IPRATROPIUM 0.5 MG NEB (SCH) NEB ×3 (07:29→19:42)
[2016-05-17] MEDS: SODIUM CHLORIDE 0.9% FLUSH 5 ML FLUSH FLUSH SCH ×2 (09:00→22:11)
[2016-05-17] MEDS ORDERED: methylPREDNISolone SOD SUCC 40 MG/1 ML VIAL IV PUSH SCH (09:00)
[2016-05-17] MEDS: SERTRALINE HCL 50 MG TAB PO SCH (09:01)
[2016-05-17] MEDS: LEVOTHYROXINE SODIUM 200 MCG TAB PO SCH (09:01)
[2016-05-17] MEDS: LACTOBACILLUS ACIDOPHILUS TAB PO SCH ×2 (09:01→22:10)
[2016-05-17] MEDS: METOPROLOL TARTRATE 25 MG TAB PO SCH ×2 (09:02→22:10)
[2016-05-17] MEDS: SUCRALFATE 1 GM TAB PO SCH ×3 (09:02→17:07)
[2016-05-17] MEDS: GABAPENTIN 100 MG CAP PO SCH ×3 (09:02→17:07)
[2016-05-17] MEDS: guaiFENesin SOLUTION 200 MG/10 ML CUP PO SCH (09:02)
[2016-05-17] MEDS: MUPIROCIN 2% OINT 1 APPLIC/GM SYR NASAL SCH ×2 (09:03→22:11)
[2016-05-17] MEDS: PANTOPRAZOLE SOD 20 MG DELAYED RELEASE TAB PO SCH (09:03)
[2016-05-17] MEDS: levETIRAcetam 500 MG TAB PO SCH ×2 (09:03→22:10)
[2016-05-17] MEDS: BUDESONIDE-FORMOTEROL 160/4.5 MCG INHALER INH SCH ×2 (09:05→22:11)
--- NOTE | 2016-05-17 10:28 | HHI.PR ---
Subjective History of Present Illness Feels better Still coughing, no sputum production Breathing is okay No fever or chills No nausea or vomiting Appetite is okay No chest pains No abdominal pains Just weak No bowel movement in 2 days offers no other complaints Vitals/Results Intake & Output 05/16/16 05/16/16 05/17/16 15:00 23:00 07:00 Intake Total 1335 ml 240 ml 100 ml Output Total 500 ml Balance 1335 ml -260 ml 100 ml Intake Oral 480 ml 240 ml 0 ml IV Total 855 ml 100 ml Output Urine Total 500 ml # Voids 4 1 6 # Bowel Movements 0 1 0 Vital Signs Vital Signs Date Time Temp Pulse Resp B/P Pulse Ox O2 Delivery O2 Flow Rate FiO2 05/17/16 08:10 85 05/17/16 08:10 Nasal Cannula 2.00 05/17/16 07:29 91 Nasal Cannula 2.00 05/17/16 04:54 98.1 94 20 121/75 92 05/17/16 04:54 Nasal Cannula 2.00 05/17/16 00:00 Nasal Cannula 2.00 05/17/16 00:00 97.5 110 20 136/63 93 05/16/16 21:37 92 05/16/16 21:08 Nasal Cannula 2.00 05/16/16 21:08 97.4 96 24 151/67 96 05/16/16 19:33 93 Nasal Cannula 2.00 05/16/16 16:00 97.6 94 16 168/74 95 05/16/16 12:00 97.9 91 16 133/63 93 CBC/BMP: 05/16/16 0626 05/16/16 0626 Physical Exam General General Appearance: Well Developed, No Acute Distress, Comfortable, Obese Eyes Eye Exam: Pupils Equal, Sclera White Ears & Nose Ears & Nose Exam: Nasal Mucosa [place] Throat Throat Exam: Oral Mucosa [place] & Moist Neck Neck Exam: Neck Supple, Trachea Midline Pulmonary Resp Exam: Breath Sounds Equal, No Distress, Rhonchi Cardiology CV Exam: Regular, Normal Sinus Rhythm Gastrointestinal/Abdomen GI Exam: Soft, Non-Tender, Bowel Sounds Present, Non-Distended Integumentary Skin Exam: Warm, Dry Extremeties Extremities Exam: No Edema, Pedal Pulses Palpable Neurologic Neuro Exam: Alert, Awake, Oriented, Speech Clear, Moving All Extremities Psychiatric Psych Exam: Appropriate Responses VTE Prophylaxis VTE Prophylaxis Meds: Heparin PUD Prophylasis PUD Prophylaxis: Protonix Assessment/Plan Problem List: (1) Sepsis (2) Respiratory distress (3) Acute exacerbation of chronic obstructive pulmonary disease (COPD) (4) PNA (pneumonia) (5) Hypoxia (6) GERD (gastroesophageal reflux disease) (7) History of multiple sclerosis (8) HTN (hypertension) (9) Hypothyroidism (10) Seizure disorder Assessment/Plan Continue oxygen by nasal cannula, maintain sats above 90% Taper steroids Blood cultures positive for Corynebacterium, likely contaminant. DC IV antibiotic, start by mouth Ceftin and doxycycline Aerosol treatment Antitussives when necessary appreciate pulm input BP control monitor renal function cautious hydration DC [place] catheter, watch for voiding Stool softeners/when necessary laxative Continue Zoloft PPI Heparin for DVT prophylaxis PT eval and tx Labs reviewed, SS for DC planning Discussed with patient Will follow Problem Qualifiers (1) Sepsis: Qualified Code: A41.9 - Sepsis, due to unspecified organism (2) PNA (pneumonia): Qualified Code: J18.9 - Pneumonia due to infectious organism, unspecified laterality, unspecified part of lung (3) GERD (gastroesophageal reflux disease): Qualified Code: K21.9 - Gastroesophageal reflux disease, esophagitis presence not specified (4) HTN (hypertension): Qualified Code: I15.9 - Secondary hypertension (5) Hypothyroidism: Qualified Code: E03.8 - Other specified hypothyroidism Ayden Reynolds MD May 17, 2016 10:28
[2016-05-17] MEDS: LORazepam 0.5 MG TAB PO PRN (13:43)
[2016-05-17] MEDS: guaiFENesin/CODEINE SYRUP 200 MG/20 MG/10 ML CUP PO PRN (13:47)
[2016-05-17] MEDS: POLYETHYLENE GLYCOL 17 GM PKG PO SCH (15:45)
[2016-05-17] MEDS ORDERED: TEMAZEPAM 15 MG CAP PO PRN (15:45)
[2016-05-17] MEDS: DOXYCYCLINE HYCLATE 100 MG CAP PO SCH (22:10)
[2016-05-17] MEDS: CEFUROXIME AXETIL 500 MG TAB PO SCH (22:10)
[2016-05-17] MEDS: DOCUSATE SODIUM 100 MG CAP PO SCH (22:10)
[2016-05-17] MEDS: MIRTAZAPINE 15 MG TAB PO SCH (22:12)
[2016-05-18] MEDS: ACETAMINOPHEN/HYDROcodone 325 MG/5 MG TAB PO SCH ×4 (03:00→15:13)
[2016-05-18] MEDS: CHLORHEXIDINE GLUCONATE 2 % 1 PACK (2 CLOTHS)(taper/protocol) TOP SCH (04:00)
[2016-05-18 04:20] VITALS: BP 135/58; PULSE 94; RESP 22; TEMP 97.7; O2SAT 91
[2016-05-18] MEDS: INSULIN NovoLIN REGULAR SUPPLEMENTAL SCALE SQ SCH ×2 (05:15→11:57)
[2016-05-18] MEDS: LEVOTHYROXINE SODIUM 25 MCG TAB PO SCH (05:16)
[2016-05-18] MEDS: HEPARIN SODIUM - SQ 10,000 UNITS/ML VIAL SQ SCH (05:16)
[2016-05-18 07:33] VITALS: O2SAT 96
[2016-05-18] MEDS: RESP: ALBUTEROL 2.5 MG/IPRATROPIUM 0.5 MG NEB (SCH) NEB ×2 (07:33→11:17)
[2016-05-18 08:00] VITALS: BP 145/72; PULSE 112; RESP 22; TEMP 97.5; O2SAT 92
[2016-05-18 08:03] VITALS: PULSE 98
[2016-05-18] MEDS: DOCUSATE SODIUM 100 MG CAP PO SCH (09:00)
[2016-05-18] MEDS ORDERED: predniSONE 20 MG TAB PO SCH (09:00)
[2016-05-18] MEDS: SODIUM CHLORIDE 0.9% FLUSH 5 ML FLUSH FLUSH SCH (09:00)
[2016-05-18] MEDS: POLYETHYLENE GLYCOL 17 GM PKG PO SCH (09:00)
[2016-05-18] MEDS: BUDESONIDE-FORMOTEROL 160/4.5 MCG INHALER INH SCH (09:00)
[2016-05-18] MEDS: SERTRALINE HCL 50 MG TAB PO SCH (09:00)
[2016-05-18] MEDS: CEFUROXIME AXETIL 500 MG TAB PO SCH (09:00)
[2016-05-18] MEDS: guaiFENesin SOLUTION 200 MG/10 ML CUP PO SCH (09:24)
[2016-05-18] MEDS: LEVOTHYROXINE SODIUM 200 MCG TAB PO SCH (09:24)
[2016-05-18] MEDS: levETIRAcetam 500 MG TAB PO SCH (09:26)
[2016-05-18] MEDS: GABAPENTIN 100 MG CAP PO SCH ×2 (09:26→12:00)
[2016-05-18] MEDS: PANTOPRAZOLE SOD 20 MG DELAYED RELEASE TAB PO SCH (09:26)
[2016-05-18] MEDS: MUPIROCIN 2% OINT 1 APPLIC/GM SYR NASAL SCH (09:26)
[2016-05-18] MEDS: METOPROLOL TARTRATE 25 MG TAB PO SCH (09:26)
[2016-05-18] MEDS: DOXYCYCLINE HYCLATE 100 MG CAP PO SCH (09:26)
[2016-05-18] MEDS: SUCRALFATE 1 GM TAB PO SCH ×2 (09:26→12:00)
[2016-05-18] MEDS: LACTOBACILLUS ACIDOPHILUS TAB PO SCH (09:40)
--- NOTE | 2016-05-18 11:24 | HHI.PR ---
Subjective History of Present Illness I am Ok cough is better ,no sputum production Breathing is good No fever or chills No nausea or vomiting Appetite is okay No chest pains No abdominal pains offers no other complaints Vitals/Results Intake & Output 05/17/16 05/17/16 05/18/16 15:00 23:00 07:00 Intake Total 840 ml 360 ml 0 ml Output Total 100 ml 600 ml Balance 740 ml 360 ml -600 ml Intake Oral 840 ml 360 ml 0 ml Output Urine Total 100 ml 600 ml # Voids 2 1 8 # Bowel Movements 1 0 0 Vital Signs Vital Signs Date Time Temp Pulse Resp B/P Pulse Ox O2 Delivery O2 Flow Rate FiO2 05/18/16 08:03 98 05/18/16 08:03 Nasal Cannula 2.00 05/18/16 07:33 96 Nasal Cannula 2.00 05/18/16 04:20 97.7 94 22 135/58 91 05/17/16 23:15 Nasal Cannula 2.00 05/17/16 23:15 98.0 94 24 166/77 92 05/17/16 20:00 98.0 94 22 132/60 92 05/17/16 20:00 Nasal Cannula 2.00 05/17/16 20:00 93 05/17/16 19:42 92 Nasal Cannula 2.00 05/17/16 16:00 97.4 91 18 118/57 95 05/17/16 12:00 98.0 95 22 133/60 94 CBC/BMP: 05/16/16 0626 05/16/16 0626 Physical Exam General General Appearance: Well Developed, No Acute Distress, Comfortable, Obese Eyes Eye Exam: Pupils Equal, Sclera White Ears & Nose Ears & Nose Exam: Nasal Mucosa [place] Throat Throat Exam: Oral Mucosa [place] & Moist Neck Neck Exam: Neck Supple, Trachea Midline Pulmonary Resp Exam: Breath Sounds Equal, No Distress, Rhonchi Cardiology CV Exam: Regular, Normal Sinus Rhythm Gastrointestinal/Abdomen GI Exam: Soft, Non-Tender, Bowel Sounds Present, Non-Distended Integumentary Skin Exam: Warm, Dry Extremeties Extremities Exam: No Edema, Pedal Pulses Palpable Neurologic Neuro Exam: Alert, Awake, Oriented, Speech Clear, Moving All Extremities Psychiatric Psych Exam: Appropriate Responses VTE Prophylaxis VTE Prophylaxis Meds: Heparin PUD Prophylasis PUD Prophylaxis: Protonix Assessment/Plan Problem List: (1) Sepsis (2) Respiratory distress (3) Acute exacerbation of chronic obstructive pulmonary disease (COPD) (4) PNA (pneumonia) (5) Hypoxia (6) GERD (gastroesophageal reflux disease) (7) History of multiple sclerosis (8) HTN (hypertension) (9) Hypothyroidism (10) Seizure disorder Assessment/Plan Continue oxygen by nasal cannula, maintain sats above 90% Taper steroids Blood cultures positive for Corynebacterium, likely contaminant. po Ceftin and doxycycline Aerosol treatment Antitussives when necessary appreciate pulm input BP control monitor renal function Stool softeners/when necessary laxative Continue Zoloft PPI Heparin for DVT prophylaxis PT eval and tx medically stable for d/c d/c to SNF see orders see MRS see HRS d/w PT d/w RN f/u pcp f/u pulmonary Problem Qualifiers (1) Sepsis: Qualified Code: A41.9 - Sepsis, due to unspecified organism (2) PNA (pneumonia): Qualified Code: J18.9 - Pneumonia due to infectious organism, unspecified laterality, unspecified part of lung (3) GERD (gastroesophageal reflux disease): Qualified Code: K21.9 - Gastroesophageal reflux disease, esophagitis presence not specified (4) HTN (hypertension): Qualified Code: I15.9 - Secondary hypertension (5) Hypothyroidism: Qualified Code: E03.8 - Other specified hypothyroidism Ayden Reynolds MD May 18, 2016 11:24
[2016-05-18] MEDS ORDERED: HYDR-3516 PO (11:49)
[2016-05-18] MEDS ORDERED: CEFT500T3 PO (11:49)
[2016-05-18] MEDS ORDERED: IPRASOL NEB (11:49)
[2016-05-18] MEDS ORDERED: LORA-392 PO (11:49)
[2016-05-18] MEDS ORDERED: PRED20 PO (11:49)
[2016-05-18] MEDS ORDERED: DOXY100C PO (11:49)
[2016-05-18 12:00] VITALS: BP 138/65; PULSE 100; RESP 22; TEMP 97.3; O2SAT 92
--- NOTE | 2016-05-19 18:33 | HHI.DS ---
Discharge Summary Admission Date May 13, 2016 at 14:30 Admitting Diagnosis respiratory distress, sepsis, hypoxia, pneumonia Brief History The patient was a 66-year-old female with a significant past medical history of COPD. She was oxygen dependent on 6 liters nasal cannula as per previous history. Also had a history of multiple sclerosis, hypertension, seizure disorder and gastritis with Bueno's esophagus. w CBC/BMP: 05/16/16 0626 05/16/16 0626 Imaging Last Impressions Chest CT 05/14/16 0000 Signed Impressions: Service Date/Time: Saturday, May 14, 2016 21:05 - CONCLUSION: 1. Nonspecific bibasilar consolidation, presumably infectious or inflammatory. 2. Nonspecific subcarinal lymph node. 3. Coronary artery calcification. 4. Small hiatal hernia again seen. 5. Old rib fractures again seen. Luiz Oates MD Chest X-Ray 05/13/16 1234 Signed Impressions: Service Date/Time: Friday, May 13, 2016 12:58 - CONCLUSION: Mild diffuse interstitial prominence. No focal infiltrate is seen. Jean Chatterjee MD PE at Discharge Resp Exam: Breath Sounds Equal, No Distress, Rhonchi Cardiology CV Exam: Regular, Normal Sinus Rhythm Gastrointestinal/Abdomen GI Exam: Soft, Non-Tender, Bowel Sounds Present, Non-Distended Integumentary Skin Exam: Warm, Dry Extremeties Extremities Exam: No Edema, Pedal Pulses Palpable Neurologic Neuro Exam: Alert, Awake, Oriented, Speech Clear, Moving All Extremities Psychiatric Psych Exam: Appropriate Responses VTE Prophylaxis VTE Prophylaxis Meds: Heparin PUD Prophylasis PUD Prophylaxis: Protonix Hospital Course PatientPatient came to the ER via EMS because of the respiratory distress and hypoxia. The patient received two albuterol nebulizer with Solu-Medrol en route. And when she came to the ER her oxygen saturation was 86%. She was in respiratory distress as per the ER physician documentation and as discussed with her. Her rectal temperature was 101.9. Because of this reason the patient was recommended for admission. The patient was put on BiPap. the patient was seen per Dr. Rajput in the emergency room while being on a BiPap. It was difficult to get good history. The patient had shortness of breath for the past 5-6 days. And with a cough. She was unable to tell me about the sputum. She had fever and chills. She had nausea and vomiting. She had diarrhea from 5 days, a few times a day. She did not have any pain just generalized body ache, no particular pain but just generalized bodyache. There was no headache. There was no genitourinary symptom. The patient was put on a BiPap which did help her. She was feeling better. During hospital stay, patient was treated for Sepsis Respiratory distress, Acute exacerbation of chronic obstructive pulmonary disease (COPD) PNA (pneumonia), Hypoxia, GERD (gastroesophageal reflux disease), History of multiple sclerosis, HTN (hypertension), Hypothyroidism and Seizure disorder. oxygen continued by nasal cannula, maintain sats above 90% Taper steroids, Blood cultures positive for Corynebacterium, likely contaminant. po Ceftin and doxycycline given, Aerosol treatment, Antitussives when necessary , Pulmonary consult, BP control monitor renal function, Stool softeners/when necessary laxative PPI, DVT prophylaxis PT eval and tx d/c to SNF see orders Pt Condition on Discharge: Stable Discharge Disposition: Discharge to SNF Discharge Instructions DIET: Follow Instructions for: Heart Healthy Diet Fluid Restrictions: none Activities you can perform: Regular-No Restrictions Other Activity Instructions: fall precautions Follow up Referrals: PCP Follow-up - 1 Week Pulmonology - 2 Weeks New Medications: Cefuroxime (Ceftin) 500 Mg Tab 500 MG PO Q12HR pneumonia #16 TAB Doxycycline Hyclate (Doxycycline Hyclate) 100 Mg Cap 100 MG PO BID pneumonia #16 CAP Hydrocodone-Acetaminophen (Hydrocodone-Acetaminophen) 5-325 mg Tab 1 TAB PO q6h Pain Management #30 TAB Ipratropium-Albuterol Neb (Duoneb) 0.5-2.5 Mg/3 Ml Neb 1 AMPULE NEB QID COPD #60 ML Lorazepam (Ativan) 0.5 Mg Tab 0.5 MG PO TID PRN ANXIETY #30 TAB Prednisone (Prednisone) 20 Mg Tab 20 MG PO DAILY COPD #4 TAB Continued Medications: Albuterol Neb (Albuterol Neb) 2.5 Mg/3 Ml Neb 2.5 MG NEB Q6HR PRN SHORTNESS OF BREATH #60 Ref 0 NEBULE Amlodipine (Amlodipine) 10 Mg Tab 10 MG PO DAILY HTN #30 Ref 0 TAB Bisacodyl Supp (Dulcolax Supp) 10 Mg Supp 10 MG RECTAL DIRECTED PRN NO BM AFTER MOM #12 Ref 0 SUPP Budesonide Neb (Budesonide Neb) 0.5 Mg/2 Ml Neb 0.5 MG NEB BID NEB COPD #60 Ref 0 NEBULE Gabapentin (Gabapentin) 100 Mg Cap 100 MG PO TID #90 Ref 0 CAP Guaifenesin-Dextromethorphan Liq (Guaifenesin DM Liq) 10-100 Mg/5 Ml Liq 10 ML PO Q6HR PRN COUGH #1 Ref 0 BOTTLE Lactobacillus Acidophilus (Lactobacillus Acidophilus) 1 Tab Tab 1 TAB PO BID C-DIFF #30 Ref 0 TAB Levetiracetam (Keppra) 500 Mg Tab 500 MG PO BID Control Seizures #60 Ref 0 TAB Levothyroxine (Levothyroxine) 25 Mcg Tab 25 MCG PO DAILY Thyroid #30 Ref 0 TAB Levothyroxine (Levothyroxine) 200 Mcg Tab 200 MCG PO DAILY Thyroid #30 Ref 0 TAB Lisinopril (Lisinopril) 5 Mg Tab 5 MG PO DAILY HTN #30 Ref 0 TAB Metoprolol Tartrate (Metoprolol Tartrate) 25 Mg Tab 12.5 MG PO Q12HR HTN #60 Ref 0 TAB Mirtazapine (Mirtazapine) 15 Mg Tab 15 MG PO HS Depression Control #30 Ref 0 TAB Nitroglycerin SL (Nitroglycerin SL) 0.4 Mg Subl 0.4 MG SL DIRECTED ONE TABLET UNDER THE TONGUE NEEDED FOR CHEST PAIN, MAY REPEAT EVERY FIVE MINUTES FOR A TOTAL OF 3 DOSES OR CALL 911 IF NO RELIEF PRN CHEST PAIN #100 Ref 0 TAB.SL Omeprazole (Omeprazole) 20 Mg Cap 20 MG PO DAILY GERD Prednisone (Prednisone) 10 Mg Tab 10 MG PO DAILY COPD Ref 0 TAB Sennosides-Docusate Sodium (Senna S) 8.6-50 Mg Tab 1 TAB PO BID PRN CONSTIPATION Sertraline (Sertraline) 50 Mg Tab 50 MG PO DAILY Depression Control #30 Ref 0 TAB Sucralfate (Sucralfate) 1 Gm Tab 1 GM PO TID on empty stomach STOMACH CRAMPS #90 Ref 0 TAB Tiotropium Inh (Spiriva Handihaler) 18 Mcg Cap 18 MCG INH DAILY 1 capsule = 18 mcg COPD #30 Ref 0 CAP Discontinued Medications: Acetaminophen (Mapap) 325 Mg Tab 650 MG PO Q4HR PRN PAIN/TEMP>101 Ref 0 TAB Bjlfsqli-Pgufiismy-Sexmwjbiwcf Liq (Mylanta Liq) 200-200-20 Mg/5 Ml Susp 30 ML PO Q4HR Take between meals or as directed. Shake well. Maximum 120 ml/24 hrs. PRN INDIGESTION Ref 0 ML Guaifenesin (Guaifenesin) 400 Mg Tab 400 MG PO DAILY Hydrocodone-Acetaminophen ([place]) 5-325 mg Tab 1 TAB PO Q4H Pain Management Ref 0 TAB Loperamide (Loperamide) 2 Mg Cap 2 MG PO DIRECTED Give 4mg for the initail dose, then 2mg after each loose stool. Not to exceed 16 mg per day. PRN DIARRHEA Ref 0 CAP Loperamide Liq (Loperamide Liq) 1 Mg/5 Ml Liq 2 MG PO DIRECTED Give 4 mg (20 ml) for the initial dose then, 2 mg (10 mL) after each loose stool. Not to exceed 16 mg (80 mL) per day. PRN DIARRHEA #1 Ref 0 BOTTLE Lorazepam (Lorazepam) 0.5 Mg Tab 0.5 MG PO TID PRN ANXIETY Ref 0 TAB Magnesium Hydroxide Liq (Milk of Magnesia Liq) 400 Mg/5 Ml Susp 30 ML PO Q4HR PRN CONSTIPATION #1 Ref 0 BOTTLE Sodium Phosphates Rectal (Fleet Enema Rectal) 7-19 Gm/118 Ml Enem 118 ML RECTAL DIRECTED PRN NO BM FROM DULCOLAX Ref 0 BOTTLE Additional Information Discharge orders sent to SNF. Case management assisted. Yin French May 19, 2016 18:33
== END 2016-05-18 16:05 | DRG 871 ==
LOC: NEPE 12:21 → NEDA 14:30 → HIMN 17:00 → N04A 05-15 18:37
PROVIDERS: ADMIT Specialist; ATTEND Specialist
PROC: 5A09357 Assistance with Respiratory Ventilation, Less than 24 Consecutive Hours, Continuous Positive Airway Pressure (ICD-10-PCS; principal; 2016-05-13)
DX: A41.9 Sepsis, unspecified organism (principal); J18.9 Pneumonia, unspecified organism; J96.01 Acute respiratory failure with hypoxia; E87.2 Acidosis; J44.0 Chronic obstructive pulmonary disease with (acute) lower respiratory infection; K22.70 Barrett's esophagus without dysplasia; J44.1 Chronic obstructive pulmonary disease with (acute) exacerbation; Z68.41 Body mass index [BMI] 40.0-44.9, adult; K21.0 Gastro-esophageal reflux disease with esophagitis; Z99.81 Dependence on supplemental oxygen; G40.909 Epilepsy, unspecified, not intractable, without status epilepticus; G35 Multiple sclerosis; E03.9 Hypothyroidism, unspecified; J20.9 Acute bronchitis, unspecified; I10 Essential (primary) hypertension; E66.01 Morbid (severe) obesity due to excess calories; R65.20 Severe sepsis without septic shock; J47.9 Bronchiectasis, uncomplicated; R73.9 Hyperglycemia, unspecified; Z85.42 Personal history of malignant neoplasm of other parts of uterus; Z87.891 Personal history of nicotine dependence; Z88.6 Allergy status to analgesic agent; Z88.0 Allergy status to penicillin; Z88.2 Allergy status to sulfonamides; Z88.8 Allergy status to other drugs, medicaments and biological substances
CPT/HCPCS: 36600; 51702; 71010; 71250; 80048; 80053; 81001; 82805; 82948; 83605; 83735; 83880; 84100; 84484; 85025; 85027; 87040; 87205; 87641; 87804; 93005; 94002; 94640; 94664; 96365; 96367; 96368; 96375; J0456; J0692; J1644; J2405; J2543; J2920; J2930; J7030; J7050; J7512; J7626

== ENCOUNTER 2016-06-12 02:52 | Inpatient (IN) | payer MEDICARE, OTHER ==
[~2016-06-12] VITALS: Ht 157.5 cm; Wt 100.0 kg
[2016-06-12] VITALS (16 sets, daily range): BP systolic 102–173; BP diastolic 53–75; PULSE 87–108; RESP 14–20; TEMP 97.4–98.3; O2SAT 92–97
[~2016-06-12 02:52] MED LIST changes: -ACET325 PO; -ALBU.5I NEB; +ALBU0.08 NEB; -ALUM5LIQ PO; -AMLO10 PO; +AMLO10TA2 PO; -BUDE.5I NEB; +BUDE0.5S NEB; +CEFT500T3 PO; -DIPH25 PO; -DOCU1CAP39 PO; +DOXY100C PO; +DULC10SU3 RECTAL; +GABA100C4 PO; +GUAISYP7 PO; +HYDR-3516 PO; +IPRASOL NEB; +LACTTAB8 PO; -LANSO30 NG; -LEVA750T PO; +LEVE500 PO; +LEVO200T4 PO; +LEVO25TA4 PO; +LISI-519 PO; -LISI5 PO; +LORA-392 PO; -LORTA5 PO; -METO25 PO; +METO25TA3 PO; -MILKSUS5 PO; +MIRTA15 PO; +NITR1SUB3 SL; +OMEP20CA2 PO; +PRED10 PO; +PRED20 PO; -PRED50 PO; +SENN8.6T8 PO; +SERT-132 PO; +SPIRCAP INH; -SYNT200T PO; -THERTAB17 PO; -TIOT18I INH
[2016-06-12] MEDS ORDERED: methylPREDNISolone SOD SUCC 125 MG/2 ML VIAL IVP ONE (03:00)
[2016-06-12] MEDS ORDERED: SODIUM CHLORIDE 0.9% FLUSH 5 ML FLUSH IVF PRN ×2 (03:00→05:00)
--- NOTE | 2016-06-12 03:04 | PD ---
HPI Chief Complaint: Respiratory Distress Time Seen by Provider: 02:58 Travel History International Travel<30 days: No Contact w/Intl Traveler<30days: No Traveled to known affect area: No History of Present Illness HPI The patient is a 66 year old female who presents to the [facility] emergency department with a history of shortness of breath that began to worsen over the last 24 hours. The patient has a history of U OPD and recurrent pneumonia over the last year. She is currently inpatient at a skilled nursing and is chronically on humidified O2 at 6 L. The patient was noted to be desaturating down into the 70s by the skilled nursing staff. They called ambulance services and started the patient on a nebulizer treatment. The patient was confirmed to be saturating in the 70s on ambulance services arrival. The patient was placed on a nonrebreather and her saturations came up to 96-97%. The patient has been having a productive sounding cough again recently. The patient is unable to provide much significant history, the patient's history is obtained from reviewing the patient's electronic medical record. The patient was just admitted to the hospital on May 13, 2016 with shortness of breath and sepsis. The patient was on BiPAP at that time. The patient reports that she has a right-sided lateral chest wall pain. The patient denies any history of recent fevers, neck pain, shortness of breath, abdominal pain, vomiting, diarrhea, urinary symptoms, or new neurologic symptoms. PFSH Past Medical History Narrative Medical The patient's past medical history significant for COPD, hypertension, multiple sclerosis, seizure disorder, history of gastritis with Bueno's esophagitis, history of recent recurrent pneumonia, O2 dependence, typically on 6 L nasal cannula humidified oxygen continuously at her skilled nursing. Arthritis: Yes Asthma: Yes Autoimmune Disease: Yes (MS) Blood Disorders: Yes Anxiety: No Depression: No Heart Rhythm Problems: Yes (mumur) Cancer: Yes (ENDOMETRIAL CA (with hysterectomy)) Cardiomyopathy: Yes Cardiovascular Problems: Yes High Cholesterol: Yes Chemotherapy: No Chest Pain: Yes Congestive Heart Failure: No COPD: No Cerebrovascular Accident: No Diabetes: No Diminished Hearing: Yes ([place]) Endocrine: Yes Gastrointestinal Disorders: Yes ( ESOPHAGEAL EROSION) Genetic Disorder: Yes GERD: Yes Genitourinary: No Headaches: No Hiatal Hernia: No Hypertension: Yes Immune Disorder: Yes (m.s., graves disease) Implanted Vascular Access Dvce: No Kidney Stones: No Musculoskeletal: Yes (fx right patella, right tibia fracture - fall in 2012) Neurologic: Yes (MS, NEUROPATHY, GRAVES DISEASE) Psychiatric: No Reproductive: No Respiratory: Yes (COPD, ASTHMA) Immunizations Current: Yes Migraines: Yes Myocardial Infarction: No Pancreatitis: Yes Pneumonia: Yes Radiation Therapy: No Renal Failure: No Seizures: Yes Sickle Cell Disease: No Sleep Apnea: No Thyroid Disease: Yes Ulcer: Yes ( ) Menopausal: Yes : 1 Para: 1 Past Surgical History Narrative Surgical The patient's past surgical history is significant for a hysterectomy, cholecystectomy, kyphoplasty, bilateral lumpectomy. AICD: No Arteriovenous Shunt: No Cardiac Surgery: No Cholecystectomy: Yes Ear Surgery: No Endocrine Surgery: No Eye Surgery: No Genitourinary Surgery: No Gynecologic Surgery: Yes (hysterectomy) Hysterectomy: Yes Insulin Pump: No Joint Replacement: No Neurologic Surgery: Yes (KYPHOPLASTY T5,L1, SACRAL AND OTHERS) Oral Surgery: No Pacemaker: No Thoracic Surgery: No Tonsillectomy: Yes Other Surgery: Yes (bilat lumpectomy) Social History Alcohol Use: No Tobacco Use: No (STOPPED APR 2012) Substance Use: No Allergies-Medications (Allergen,Severity, Reaction): Coded Allergies: Amitriptyline (Verified Allergy, Severe, SWELLING, 06/12/16) Penicillin (Verified Allergy, Severe, Anaphylaxis, 06/12/16) Sulfa (Verified Allergy, Severe, Anaphylaxis, 06/12/16) Aspirin (Verified Allergy, Intermediate, Rash, 06/12/16) *MDRO Multi-Drug Resistant Organism (Verified Adverse Reaction, Unknown, ) MRSA PCR Screen POSITIVE - 07/22/2015, 05/13/2016 MRSA sputum 06/2015 Reported Meds & Prescriptions Reported Meds & Active Scripts Active Prednisone 20 Mg Tab 20 Mg PO DAILY Ativan (Lorazepam) 0.5 Mg Tab 0.5 Mg PO TID PRN Duoneb (Ipratropium-Albuterol Neb) 0.5-2.5 Mg/3 Ml Neb 1 Ampule NEB QID Hydrocodone-Acetaminophen 5-325 mg Tab 1 Tab PO Q6H Doxycycline Hyclate 100 Mg Cap 100 Mg PO BID Ceftin (Cefuroxime Axetil) 500 Mg Tab 500 Mg PO Q12HR Reported Dulcolax Supp (Bisacodyl) 10 Mg Supp 10 Mg RECTAL DIRECTED PRN Nitroglycerin SL (Nitroglycerin) 0.4 Mg Subl 0.4 Mg SL DIRECTED PRN ONE TABLET UNDER THE TONGUE NEEDED FOR CHEST PAIN, MAY REPEAT EVERY FIVE MINUTES FOR A TOTAL OF 3 DOSES OR CALL 911 IF NO RELIEF Guaifenesin DM Liq (Guaifenesin-Dextromethorphan Liq) 10-100 Mg/5 Ml Liq 10 Ml PO Q6HR PRN Sucralfate 1 Gm Tab 1 Gm PO TID on empty stomach Spiriva Handihaler (Tiotropium Inh) 18 Mcg Cap 18 Mcg INH DAILY 1 capsule = 18 mcg Albuterol Neb (Albuterol Sulfate) 2.5 Mg/3 Ml Neb 2.5 Mg NEB Q6HR PRN Senna S (Sennosides-Docusate Sodium) 8.6-50 Mg Tab 1 Tab PO BID PRN Keppra (Levetiracetam) 500 Mg Tab 500 Mg PO BID Gabapentin 100 Mg Cap 100 Mg PO TID Budesonide Neb 0.5 Mg/2 Ml Neb 0.5 Mg NEB BID NEB Amlodipine (Amlodipine Besylate) 10 Mg Tab 10 Mg PO DAILY Sertraline (Sertraline HCl) 50 Mg Tab 50 Mg PO DAILY Prednisone 10 Mg Tab 10 Mg PO DAILY Omeprazole 20 Mg Cap 20 Mg PO DAILY Mirtazapine 15 Mg Tab 15 Mg PO HS Metoprolol Tartrate 25 Mg Tab 12.5 Mg PO Q12HR Lactobacillus Acidophilus 1 Tab Tab 1 Tab PO BID Lisinopril 5 Mg Tab 5 Mg PO DAILY Levothyroxine (Levothyroxine Sodium) 200 Mcg Tab 200 Mcg PO DAILY Levothyroxine (Levothyroxine Sodium) 25 Mcg Tab 25 Mcg PO DAILY Review of Systems Except as stated in HPI: all other systems reviewed are Neg General / Constitutional: No: Fever Eyes: No: Visual changes HENT: Positive: Congestion, No: Headaches Cardiovascular: Positive: Chest Pain or Discomfort (right-sided chest wall pain ) Respiratory: Positive: Cough, Shortness of Breath, Wheezing Gastrointestinal: No: Nausea, Vomiting, Abdominal Pain Genitourinary: No: Dysuria Musculoskeletal: No: Pain Skin: No Rash Neurologic: Positive: Weakness (generalized weakness), No: Focal Abnormalities , Change in Mentation, Slurred Speech, Sensory Disturbance Psychiatric: No: Depression Endocrine: No: Polydipsia Hematologic/Lymphatic: No: Easy Bruising Physical Exam Narrative General: The patient is well-developed well-nourished female in no acute distress. Head and Neck exam: Head is normocephalic atraumatic. Eyes: Pupils are equal round and reactive to light. Nose: Midline septum with pink mucous membranes Mouth: Dentition unremarkable. Moist mucus membranes. Posterior oropharynx is not erythematous. No tonsillar hypertrophy. Uvula midline. Airway patent. Neck: No palpable lymphadenopathy. No nuchal rigidity. No thyromegaly. Cardiovascular: Regular rate and rhythm without murmurs, gallops, or rubs. No pulse deficit to the extremities on simultaneous auscultation and palpation of her radial artery.. Lungs: The patient has occasional soft expiratory wheezes between productive sounding cough with occasional rhonchi bilaterally. No crackles audible. She is tachypneic. She has no accessory muscle use. No tripoding. Abdomen: Soft, without tenderness to palpation in all 4 quadrants of the abdomen. No guarding, rebound, or rigidity. Normal bowel sounds are audible Extremities: No clubbing or cyanosis. The patient has trace pedal edema bilateral lower extremities. The patient has 2+ pulses in bilateral upper extremities, 1+ pulses in bilateral lower extremities. Back: No spinous process tenderness to palpation. No costovertebral angle tenderness to palpation. Neurologic Exam: Grossly nonfocal. Skin Exam: No rash noted. Intact skin that is warm and dry. Data Data Last Documented VS Vital Signs Date Time Temp Pulse Resp B/P Pulse Ox O2 Delivery O2 Flow Rate FiO2 06/12/16 03:09 19 97 Simple Mask 8 06/12/16 03:04 91 102/57 06/12/16 02:56 98.3 Orders Complete Blood Count With Diff (06/12/16 02:58) Comprehensive Metabolic Panel (06/12/16 02:58) Iv Access Insert/Monitor (06/12/16 02:58) Electrocardiogram (06/12/16 02:58) Ecg Monitoring (06/12/16 02:58) Oximetry (06/12/16 02:58) Oxygen Administration (06/12/16 02:58) Sodium Chloride 0.9% Flush (Ns Flush) (06/12/16 03:00) Methylprednisolone So Succ Inj (Solumedr (06/12/16 03:00) Albuterol-Ipratropium Neb (Duoneb Neb) (06/12/16 03:00) Creatine Kinase (Cpk) (06/12/16 02:59) Ckmb (Isoenzyme) Profile (06/12/16 02:59) Troponin I (06/12/16 02:59) B-Type Natriuretic Peptide (06/12/16 02:59) Blood Culture (06/12/16 02:59) C-Reactive Protein (Crp) (06/12/16 02:59) Lipase (06/12/16 02:59) Lactic Acid Sepsis Protocol (06/12/16 02:59) Chest, Single Ap (06/12/16 03:39) Cefepime Inj (Maxipime Inj) (06/12/16 04:45) Azithromycin Inj (Zithromax Inj) (06/12/16 04:45) Admit Order (Ed Use Only) (06/12/16 04:51) Labs Laboratory Tests Test 06/12/16 03:15 White Blood Count 14.6 TH/MM3 Red Blood Count 3.97 MIL/MM3 Hemoglobin 11.1 GM/DL Hematocrit 34.4 % Mean Corpuscular Volume 86.5 FL Mean Corpuscular Hemoglobin 27.9 PG Mean Corpuscular Hemoglobin 32.3 % Concent Red Cell Distribution Width 18.3 % Platelet Count 272 TH/MM3 Mean Platelet Volume 8.5 FL Neutrophils (%) (Auto) 72.3 % Lymphocytes (%) (Auto) 14.4 % Monocytes (%) (Auto) 9.9 % Eosinophils (%) (Auto) 3.1 % Basophils (%) (Auto) 0.3 % Neutrophils # (Auto) 10.5 TH/MM3 Lymphocytes # (Auto) 2.1 TH/MM3 Monocytes # (Auto) 1.4 TH/MM3 Eosinophils # (Auto) 0.5 TH/MM3 Basophils # (Auto) 0.0 TH/MM3 CBC Comment AUTO DIFF Differential Total Cells 100 Counted Neutrophils % (Manual) 70 % Band Neutrophils % 2 % Lymphocytes % 17 % Monocytes % 7 % Eosinophils % 4 % Neutrophils # (Manual) 10.5 TH/MM3 Differential Comment FINAL DIFF MANUAL Platelet Estimate NORMAL Platelet Morphology Comment NORMAL Polychromasia 3.0 % Tear Drop Cells 1+ Ovalocytes 1+ Sodium Level 139 MEQ/L Potassium Level 4.3 MEQ/L Chloride Level 105 MEQ/L Carbon Dioxide Level 23.4 MEQ/L Anion Gap 11 MEQ/L Blood Urea Nitrogen 29 MG/DL Creatinine 1.31 MG/DL Estimat Glomerular Filtration 41 ML/MIN Rate Random Glucose 144 MG/DL Lactic Acid Level 2.8 mmol/L Calcium Level 8.9 MG/DL Total Bilirubin 0.2 MG/DL Aspartate Amino Transf 16 U/L (AST/SGOT) Alanine Aminotransferase 28 U/L (ALT/SGPT) Alkaline Phosphatase 94 U/L Total Creatine Kinase 63 U/L Troponin I LESS THAN 0.02 NG/ML C-Reactive Protein 4.00 MG/DL B-Type Natriuretic Peptide 53 PG/ML Total Protein 7.8 GM/DL Albumin 3.4 GM/DL Lipase 36 U/L [facility] Medical Decision Making Medical Screen Exam Complete: Yes Emergency Medical Condition: Yes Medical Record Reviewed: Yes Interpretation(s) Laboratory Tests Test 06/12/16 03:15 White Blood Count 14.6 TH/MM3 Red Blood Count 3.97 MIL/MM3 Hemoglobin 11.1 GM/DL Hematocrit 34.4 % Mean Corpuscular Volume 86.5 FL Mean Corpuscular Hemoglobin 27.9 PG Mean Corpuscular Hemoglobin 32.3 % Concent Red Cell Distribution Width 18.3 % Platelet Count 272 TH/MM3 Mean Platelet Volume 8.5 FL Neutrophils (%) (Auto) 72.3 % Lymphocytes (%) (Auto) 14.4 % Monocytes (%) (Auto) 9.9 % Eosinophils (%) (Auto) 3.1 % Basophils (%) (Auto) 0.3 % Neutrophils # (Auto) 10.5 TH/MM3 Lymphocytes # (Auto) 2.1 TH/MM3 Monocytes # (Auto) 1.4 TH/MM3 Eosinophils # (Auto) 0.5 TH/MM3 Basophils # (Auto) 0.0 TH/MM3 CBC Comment AUTO DIFF Differential Total Cells 100 Counted Neutrophils % (Manual) 70 % Band Neutrophils % 2 % Lymphocytes % 17 % Monocytes % 7 % Eosinophils % 4 % Neutrophils # (Manual) 10.5 TH/MM3 Differential Comment FINAL DIFF MANUAL Platelet Estimate NORMAL Platelet Morphology Comment NORMAL Polychromasia 3.0 % Tear Drop Cells 1+ Ovalocytes 1+ Sodium Level 139 MEQ/L Potassium Level 4.3 MEQ/L Chloride Level 105 MEQ/L Carbon Dioxide Level 23.4 MEQ/L Anion Gap 11 MEQ/L Blood Urea Nitrogen 29 MG/DL Creatinine 1.31 MG/DL Estimat Glomerular Filtration 41 ML/MIN Rate Random Glucose 144 MG/DL Lactic Acid Level 2.8 mmol/L Calcium Level 8.9 MG/DL Total Bilirubin 0.2 MG/DL Aspartate Amino Transf 16 U/L (AST/SGOT) Alanine Aminotransferase 28 U/L (ALT/SGPT) Alkaline Phosphatase 94 U/L Total Creatine Kinase 63 U/L Troponin I LESS THAN 0.02 NG/ML C-Reactive Protein 4.00 MG/DL B-Type Natriuretic Peptide 53 PG/ML Total Protein 7.8 GM/DL Albumin 3.4 GM/DL Lipase 36 U/L Last Impressions Chest X-Ray 06/12/16 0339 Signed Impressions: Service Date/Time: Sunday, June 12, 2016 03:55 - CONCLUSION: 1. Cardiomegaly. No acute pulmonary disease. Francois Hughes MD Differential Diagnosis Pneumonia, versus COPD exacerbation, versus congestive heart failure. Narrative Course During the course of the patients emergency department visit, the patients history, examination, and differential diagnosis were reviewed with the patient. The patient had IV access obtained and blood work sent for analysis. The patient's was on a cardiac cath lab radiology technologist with oximetry and blood pressure monitoring. An EKG was done on arrival. The patient's EKG shows a sinus rhythm heart rate of 93, no acute ST segment elevation is noted. No acute ST segment depression. A chest x-ray was ordered. Respiratory therapy was available at the bedside to assist with care upon the patient's arrival. The patient will have suctioning of her upper airway done and she has significant upper airway congestion audible. The patient will be given DuoNeb 2. The patient was given Solu-Medrol 125 mg IV. The patients laboratory studies were reviewed and remarkable for a white count of 14.6, hemoglobin 11.1, platelets 272 with 72.3 neutrophils, 9.9 monocytes, CMP is remarkable for a BUN is 29, creatinine 1.31, glucose 144, CPK 63, troponin I less than 0.02, C-reactive protein is 4, BNP is 53. Lactic acid is noted to be elevated at 2.8 may be related to sepsis although I suspect that it is more related to the patient's respiratory distress on initial evaluation. The patient has a prior history of congestive heart failure, therefore fluids were held in spite of meeting Sirs criteria while further evaluation was done with additional studies including a BNP, and her chest x-ray. Radiology studies were reviewed and remarkable for a chest x-ray that shows cardiomegaly, no acute pulmonary disease. I suspect that the patient's respiratory symptoms are related to his COPD exacerbation and bronchitis. The patient's BNP is within normal limits. The patient has no evidence of fluid overload on her chest x-ray. The patient will be given judicious fluid hydration. The patients results were discussed with the patient, including the plan of care. I explained that further testing and/ or monitoring is indicated based on the patients history, examination, and/ or laboratory findings. Therefore, I recommended admission for additional evaluation. The patient expressed understanding and was agreeable with this plan. The patient was admitted to the hospital in guarded condition and sent to a bed [facility] the [facility]. Sepsis Criteria SIRS Criteria (2 or more): Heart rate over 90, WBC > 92187, < 4000 or > 10% bands Sepsis Criteria (SIRS+source): Infect source susp/known Physician Communication Physician Communication The patient's case was discussed with Luiz Maria, the physician mechanic's assistant who did agree to admit the patient for further evaluation and treatment at this time to the [facility] service. Diagnosis Primary Impression: Shortness of breath Additional Impressions: Hypoxemia Acute exacerbation of chronic obstructive pulmonary disease (COPD) Acute bronchitis Admitting Information Admitting Physician Requests: Admit Luz Elena Hamm MD Jun 12, 2016 03:04
[2016-06-12] MEDS: RESP: ALBUTEROL 2.5 MG/IPRATROPIUM 0.5 MG NEB (SCH) INH (03:18)
[2016-06-12 03:20] LABS: AUTOMATED NEUTROPHIL # 10.5 TH/MM3 (1.8-7.7); BASOPHIL % 0.3 % (0.0-2.0); EOSINOPHIL # 0.5 TH/MM3 (0-0.4); EOSINOPHIL % 3.1 % (0.0-4.0); HEMATOCRIT 34.4 % (35.0-46.0); LYMPH % 14.4 % (9.0-44.0); LYMPHOCYTE # 2.1 TH/MM3 (1.0-4.8); MEAN CELL VOLUME 86.5 FL (80.0-100.0); MEAN CORPUSCULAR HEMOGLOBIN 27.9 PG (27.0-34.0); MEAN CORPUSCULAR HGB CONC 32.3 % (32.0-36.0); MONO % 9.9 % (0.0-8.0); NEUT % 72.3 % (16.0-70.0); PLATELET COUNT 272 TH/MM3 (150-450); RED BLOOD COUNT 3.97 MIL/MM3 (4.00-5.30); RED CELL DISTRIBUTION WIDTH 18.3 % (11.6-17.2); WHITE BLOOD COUNT 14.6 TH/MM3 (4.0-11.0)
[2016-06-12 03:21] LABS: HEMO FLAGS AUTO DIFF
[2016-06-12 03:36] LABS: ALT (GPT) 28 U/L (10-53); ANION GAP 11 MEQ/L (5-15); AST (GOT) 16 U/L (15-37); BICARBONATE 23.4 MEQ/L (21.0-32.0); BLOOD UREA NITROGEN 29 MG/DL (7-18); CHLORIDE 105 MEQ/L (98-107); GLOMERULAR FILTRATION RATE 41 ML/MIN (>89); POTASSIUM 4.3 MEQ/L (3.5-5.1); SODIUM (NA) 139 MEQ/L (136-145)
[2016-06-12 03:38] LABS: ALKALINE PHOSPHATASE 94 U/L (45-117); TOTAL BILIRUBIN ADULT 0.2 MG/DL (0.2-1.0)
[2016-06-12 03:54] LABS: BANDS 2 % (0-6); EOSINOPHILS 4 % (0-4); NEUTROPHIL # MANUAL DIFF 10.5 TH/MM3 (1.8-7.7); POLYS (SEG NEUTROPHILS) 70 % (16-70); WBC DIFF SAMPLE 100
[2016-06-12 03:55] LABS: PLATELET ESTIMATE SMEAR NORMAL (NORMAL); PLATELET MORPHOLOGY NORMAL (NORMAL); SCAN/DIFF FINAL DIFF MANUAL
[2016-06-12 04:09] LABS: OVALOCYTES 1+ (NORMAL); TEARDROP RBCS 1+ (NORMAL)
--- NOTE | 2016-06-12 04:09 | RADRPT ---
EXAM DATE/TIME: 06/12/2016 03:55 [facility] COMPARISON: CHEST SINGLE AP, May 13, 2016, 12:58. INDICATIONS : Shortness of breath. MEDICAL HISTORY : Hypertension. Chronic obstructive pulmonary disease. SURGICAL HISTORY : None. ENCOUNTER: Initial ACUITY: 1 day PAIN SCORE: Non-responsive. LOCATION: Bilateral chest FINDINGS: The cardiac silhouette is enlarged in transverse diameter. The lungs are hypoinflated but clear. No e ffusions are identified. No pleural effusions are identified. Multiple old left rib fractures are pre sent as well as multiple previous kyphoplasties. CONCLUSION: 1. Cardiomegaly. No acute pulmonary disease. Francois Hughes MD on June 12, 2016 at 4:07 Board Certified Radiologist. This report was verified electronically.
[2016-06-12] MEDS ORDERED: AZITHROMYCIN INJ 500 MG in SODIUM CHLOR 0.9% 250 ML INJ 250 ML IV ONE (04:45)
[2016-06-12] MEDS ORDERED: CEFEPIME INJ 1,000 MG in SODIUM CHLORIDE 0.9% INJ 100 ML IV ONE (04:45)
[2016-06-12] MEDS ORDERED: AZITHROMYCIN 250 MG TAB PO SCH (05:00)
[2016-06-12] MEDS ORDERED: RESP: ALBUTEROL 2.5 MG/3 ML NEB (PRN) INH (05:00)
[2016-06-12 05:15] LABS: LACTIC ACID GHOST NOT REPORTABLE
[2016-06-12] MEDS: SODIUM CHLOR 0.9% 1000 ML INJ 1,000 ML IV SCH ×2 (05:41→18:11)
[2016-06-12 06:12] LABS: CREATINE KINASE 63 U/L (26-192)
[2016-06-12] MEDS: AZITHROMYCIN 250 MG TAB PO SCH (06:37)
[2016-06-12] MEDS ORDERED: SODIUM CHLOR 0.9% 1000 ML INJ 1,000 ML IV ONE (07:15)
[2016-06-12] MEDS ORDERED: ATOR10TA15 PO (07:16)
[2016-06-12] MEDS: SODIUM CHLORIDE 0.9% FLUSH 5 ML FLUSH IVF SCH ×2 (09:00→21:00)
[2016-06-12] MEDS ORDERED: RESP: ALBUTEROL 2.5 MG/IPRATROPIUM 0.5 MG NEB (SCH) INH (10:00)
[2016-06-12] MEDS ORDERED: DOCUSATE SODIUM 50 MG/SENNA 8.6 MG TAB PO PRN (10:30)
[2016-06-12] MEDS ORDERED: guaiFENesin/DEXTROMETHORPHAN 200 MG/20 MG/10 ML CUP PO PRN (10:30)
[2016-06-12] MEDS: LEVOTHYROXINE SODIUM 200 MCG TAB PO SCH (10:30)
[2016-06-12] MEDS ORDERED: NITROGLYCERIN 0.4 MG SL 25 TABS/BTL SL PRN (10:30)
--- NOTE | 2016-06-12 10:58 | MH ---
cc: DEAN RAJPUT MD DATE OF ADMISSION: 06/12/2016 DATE OF : 1950 CHIEF COMPLAINT Shortness of breath and cough. She has had no travel in the last 30 days. HISTORY OF PRESENT ILLNESS This is a pleasant 66-year-old female who has a significant history of COPD. She was just admitted to the hospital on May 13 with some of the same symptoms including shortness of breath and sepsis. The patient was placed on BiPAP during that period of time and is currently still using BiPAP p.r.n. during the day and night. Currently she is complaining of cough which has been fairly constant for the past six days. She states now that she is very sore in her ribs and it hurts to cough. She does state she had fever, some nausea and vomiting. She states that some of the vomiting yesterday had a coffee-ground appearance to it. The patient also states some altered mental status with some mild confusion. Currently she is a fair historian, answering simple questions, but she is very hard of hearing and her speech is slow. The patient has been a long-term tobacco user but states she quit approximately four years ago. The patient also is complaining of her abdomen beginning to swell over the past few months. She has been treated for debility in the recent past and is currently in a SNF for rehabilitation. She is short of breath at rest and with exertion but currently is able to sleep when she is not being aroused. In the ER the patient was placed on a non-rebreather due to her sat being in the 70s when EMS picked her up. Her sats did return to the 96-97% range on the non-rebreather. She does have a coarse productive sounding cough, but currently is not coughing up anything. According to the record the patient also has UTI, Clostridium difficile, anxiety, depression, syncope and pneumonia. PAST MEDICAL HISTORY 1. COPD. 2. Hypertension. 3. Multiple sclerosis. 4. Seizure activity. 5. History of gastritis with Bueno's esophagitis. 6. Recent pneumonia. 7. O2 dependent. 8. Arthritis. 9. Asthma. 10.Multiple sclerosis. 11.Endometrial cancer. 12.Cardiomyopathy. 13.Cardiovascular disease. 14.Hyperlipidemia. 15.History of chest pain. 16.Esophageal erosions. 17.GERD. 18.Graves' disease. 19.Fracture from a fall to the right tibia and right patella in 2012. 20.Migraines. 21.Pancreatitis. 22.Degenerative disc disease. 23.MRSA in sputum June 2015. Please note most of this information is being obtained from the record due to the patient's generalized fatigue and weakness. PAST SURGICAL HISTORY 1. Hysterectomy. 2. Cholecystectomy. 3. Kyphoplasty T5 and L1. 4. Bilateral lumpectomy. ALLERGIES 1. ELAVIL. 2. PENICILLIN. 3. SULFA. 4. ASPIRIN. 5. MULTI-DRUG RESISTANT ORGANISMS; MRSA SCREEN POSITIVE. MEDICATIONS Active drugs: 1. Prednisone. 2. Ativan. 3. DuoNeb. 4. Hydrocodone. 5. Acetaminophen. 6. Doxycycline. 7. Ceftin. Reported drugs: 1. Dulcolax. 2. Nitroglycerin sublingual. 3. Guaifenesin cough med. 4. Carafate. 5. Spiriva. 6. Nebs. 7. Senna. 8. Keppra. 9. Gabapentin. 10.Amlodipine. 11.Budesonide. 12.Sertraline. 13.Prednisone. 14.Omeprazole. 15.Metoprolol. 16.Lactobacillus. 17.Lisinopril. 18.Levothyroxine. 19.Mirtazapine. SOCIAL HISTORY The patient is . Currently is staying in the [facility]. She is listed according to the record as an inpatient. Long-term tobacco use, quit in April 2012. No alcohol. No illicit drugs. REVIEW OF SYSTEMS A 12-point review was done. Positives noted are right-sided chest wall pain, shortness of breath, wheezing, generalized weakness, nausea, vomiting, fever. All of this is related to her history, otherwise negative or unremarkable. PHYSICAL EXAMINATION VITAL SIGNS: Temperature 98.3, pulse 87, respirations 15, blood pressure 106/53. O2 sat 94 on five liters currently. GENERAL: An obese, short, well-developed, well-nourished white female in mild respiratory distress. She does respond to verbal stimuli but is slow to respond. Some of this may be secondary to her hard of hearing. HEENT: Atraumatic, normocephalic. PERRLA, 2 mm. No scleral icterus. Pale mucous membranes. Midline septum. NECK: The neck is short and thick but supple. CARDIOVASCULAR: Regular rate and rhythm. No murmurs, rubs or gallops audible. Distant heart sounds. Trace pedal edema bilateral. Pulses are intact. LUNGS: Lungs have wheezes and rhonchi anteriorly and posteriorly with decreased breath sounds throughout the precordium. ABDOMEN: Obese, taut, nontender, nondistended on exam. Active bowel sounds in all four quadrants. EXTREMITIES: She can move her extremities with purpose. Her hand child and youth program assistant are equal. No clubbing. No cyanosis. NEUROLOGIC: She is semi-alert, a fair historian, hard of hearing, responds to simple questions with short answers. PSYCHOLOGICAL: Affect appropriate. Mood appropriate. Voice is clear. DIAGNOSTIC DATA WBC count 14.6, RBC 3.97, hemoglobin 11.1, hematocrit 34.4, platelet count 272, neutrophil auto 72.3, monocyte auto 9.9, lymphocyte auto 14.4. Ovalocytes 1+, tear drop cells 1+, polychromasia 3. Sodium 139, potassium 4.3, chloride 105, carbon dioxide 23.4, amnion gap 11, BUN 29, creatinine 1.31, glucose 144, lactic acid 10.8 and recheck of 4. Chest x-ray shows cardiomegaly but no acute pulmonary disease. ASSESSMENT 1. COPD exacerbation. 2. Acute bronchitis. 3. Dyspnea with hypoxemia. 4. Acute kidney injury. 5. Anemia. 6. Leukocytosis. 7. Cardiomegaly. PLAN 1. Admit inpatient. 2. Will monitor her vital signs at least every four hours. 3. Heart-healthy diet. 4. Gentle hydration. 5. Duo nebs. 6. BiPAP if warranted. 7. Will consult pulmonary for their expert opinion. 8. She will be on heparin for DVT prophylaxis, Pepcid for peptic ulcer disease prophylaxis. 9. She will also be on cefepime, prednisone, azithromycin p.o. 10.Will monitor any vomiting or GI bleed that she complained of coffee-ground emesis. Currently her hemoglobin is stable at 11.1. 11.Will monitor her labs and redraw labs in the morning. 12.Will consult the COPD educator. 13.To my knowledge the patient is full code, full aggressive care. Dictated by: WILLIAM Villagran Dean Rajput MD JP/LOGAN /8:45 AM /10:57 AM PT WAS SEEN AND EXAMINED ON DAY OF ADMISSION ABOVE, IN ER FACE TO FACE TIME SPENT WITH PT CHART WAS REVIEWED IN DETAIL, INCLUDING LABS MEDS AND RAD DATA NOTES WERE REVIEWED DW CONTROLS OPERATOR MOLDED GOODS ABOUT PLAN OF CARE DW PT MTDD
--- NOTE | 2016-06-12 11:25 | EKG ---
Date Performed: 06/12/2016 Time Performed: 02:55:47 PTAGE: 66 years EKG: Sinus rhythm THE VERY SLIGHT NONSPECIFIC ST-T ABNORMALITY ON THE PRIOR TRACING HAS RESOLVED. NORMAL ECG PREVIOUS TRACING : 05/13/2016 12.58 DOCTOR: Jeet Hamm Interpretating Date/Time 06/12/2016 11:24:38
[2016-06-12] MEDS: RESP: ALBUTEROL 2.5 MG/IPRATROPIUM 0.5 MG NEB (SCH) NEB ×3 (12:09→19:18)
[2016-06-12] MEDS: FAMOTIDINE 20 MG TAB PO SCH ×2 (12:47→21:18)
[2016-06-12] MEDS: predniSONE 20 MG TAB PO SCH (12:47)
[2016-06-12] MEDS: GABAPENTIN 100 MG CAP PO SCH ×2 (12:48→21:18)
[2016-06-12] MEDS: LEVOTHYROXINE SODIUM 25 MCG TAB PO SCH (12:48)
[2016-06-12] MEDS: HEPARIN SODIUM - SQ 10,000 UNITS/ML VIAL SQ SCH ×2 (12:48→21:18)
[2016-06-12] MEDS: levETIRAcetam 500 MG TAB PO SCH ×2 (12:48→21:18)
[2016-06-12] MEDS: ACETAMINOPHEN/HYDROcodone 325 MG/5 MG TAB PO SCH ×3 (12:49→23:45)
[2016-06-12] MEDS: METOPROLOL TARTRATE 25 MG TAB PO SCH ×2 (12:49→21:18)
[2016-06-12] MEDS: PANTOPRAZOLE SOD 20 MG DELAYED RELEASE TAB PO SCH (12:50)
[2016-06-12] MEDS: SUCRALFATE 1 GM TAB PO SCH ×2 (12:50→18:10)
[2016-06-12] MEDS: CEFEPIME INJ 1,000 MG in SODIUM CHLORIDE 0.9% INJ 100 ML IV SCH ×2 (12:50→21:17)
--- NOTE | 2016-06-12 16:24 | MB ---
cc: Daniela TINOCO DATE OF CONSULTATION: 06/12/2016 REASON FOR CONSULTATION: Ms. Bustamante a 66-year-old white female who was admitted here in April, I saw her for the first time with a history of COPD and exacerbation. She was [facility] where she has been for progressive debility thought to be related to multiple sclerosis. She also has significant reflux disease of Bueno's esophagus to the question is whether or not she is having any type of recurrent aspiration episodes. She presents back again with similar symptoms cough, congestion, shortness of breath with initial chest x-ray reveals no active pulmonary disease and enlarged heart. Previous CT scans have revealed basilar atelectasis with some of bronchiectasis again raising the suspicion of recurrent aspiration. She has had no hemoptysis or chest pain. She is not short of breath at rest but she does have a chronic persisting cough even since discharge. White count on admission was 14,000, BUN 29 with a creatinine of 1.3, blood cultures are pending. She has not produced any sputum here in the hospital. PAST MEDICAL HISTORY: She has an extensive past medical history including; COPD. Hypertension. Multiple sclerosis Reflux with Bueno's esophagus Recurrent exacerbation COPD. History of endometrial cancer post surgery. Pancreatitis in the past and MRSA has been identified in her sputum in the past. PAST SURGICAL HISTORY: She has had a hysterectomy cholecystectomy kyphoplasty of T5 and L1. ALLERGIES ELAVIL PENICILLIN SULFA ASPIRIN MEDICATIONS: Prescription drugs are reviewed in the electronic medical record. SOCIAL HISTORY: She was a smoker for many years, probably 50 pack-years plus quit smoking several years ago. No alcohol use. REVIEW OF SYSTEMS The patient complains of swelling gaining weight but no chest pain. She does have some orthopnea and PND sleeps with oxygen no documentation of obstructive sleep apnea in the past. PHYSICAL EXAMINATION: VITAL SIGNS: 97, 113/60, pulse is 90, RR 18, sat is 92% on 2 liters. HEAD, EYES, EARS, NOSE, AND THROAT: Sclerae anicteric. Mucous membranes are a little dry. NECK: Neck veins are flat. CHEST: Chest is congested bilaterally, expiratory wheezing. Regular rhythm. No harsh murmur. Neck veins are not distended. ABDOMEN: Abdomen is obese but soft. EXTREMITIES: She has no edema in her ankles. No calf tenderness. No pretibial edema. No cyanosis or clubbing. RADIOLOGIC: Chest x-ray Reveals no infiltrates. DISCUSSION Mrs. Tejeda presents with what appears to be again acute exacerbation of her underlying COPD. In light of the prior GI history wonder if she is having aspiration. We will keep the head of her bed elevated. She has been started on cefepime and Zithromax for possible hospital-acquired or Health Care acquired pneumonia, nebulized aerosol treatments and prednisone. Also on sucralfate for reflux. The patient currently stable. Will monitor her over the next day or two for response. Further diagnostic and/or therapeutic range will depend on her response and ongoing clinical course. R. MD GALEN Ballard/manolo /3:19 PM /3:55 PM
[2016-06-12] MEDS: RESP: BUDESONIDE 0.5 MG/2 ML NEB NEB SCH (19:17)
[2016-06-12] MEDS: LACTOBACILLUS ACIDOPHILUS TAB PO SCH (21:18)
[2016-06-12] MEDS: MIRTAZAPINE 15 MG TAB PO SCH (21:18)
[2016-06-13] VITALS (17 sets, daily range): BP systolic 110–159; BP diastolic 49–91; PULSE 81–105; RESP 18–22; TEMP 98.2–98.7; O2SAT 92–94
[2016-06-13] MEDS: LORazepam 0.5 MG TAB PO PRN (00:17)
[2016-06-13] MEDS: CEFEPIME INJ 1,000 MG in SODIUM CHLORIDE 0.9% INJ 100 ML IV SCH ×3 (04:01→21:00)
[2016-06-13] MEDS: LEVOTHYROXINE SODIUM 25 MCG TAB PO SCH (05:26)
[2016-06-13] MEDS: ACETAMINOPHEN/HYDROcodone 325 MG/5 MG TAB PO SCH ×4 (05:26→23:40)
[2016-06-13] MEDS: AZITHROMYCIN 250 MG TAB PO SCH (05:27)
[2016-06-13] MEDS: LEVOTHYROXINE SODIUM 200 MCG TAB PO SCH (05:30)
[2016-06-13] MEDS: SODIUM CHLOR 0.9% 1000 ML INJ 1,000 ML IV SCH (07:30)
[2016-06-13] MEDS: RESP: BUDESONIDE 0.5 MG/2 ML NEB NEB SCH ×2 (07:34→20:07)
[2016-06-13] MEDS: RESP: ALBUTEROL 2.5 MG/IPRATROPIUM 0.5 MG NEB (SCH) NEB ×4 (07:35→20:07)
[2016-06-13 08:41] LABS: HEMATOCRIT 30.4 % (35.0-46.0); MEAN CELL VOLUME 86.5 FL (80.0-100.0); MEAN CORPUSCULAR HEMOGLOBIN 27.2 PG (27.0-34.0); MEAN CORPUSCULAR HGB CONC 31.4 % (32.0-36.0); PLATELET COUNT 183 TH/MM3 (150-450); RED BLOOD COUNT 3.51 MIL/MM3 (4.00-5.30); RED CELL DISTRIBUTION WIDTH 17.6 % (11.6-17.2); REVIEW FLAG FINAL; WHITE BLOOD COUNT 11.1 TH/MM3 (4.0-11.0)
[2016-06-13] MEDS ORDERED: TIOTROPIUM BROMIDE 18 MCG INH INH SCH (09:00)
[2016-06-13 09:08] LABS: BICARBONATE 25.3 MEQ/L (21.0-32.0); POTASSIUM 3.9 MEQ/L (3.5-5.1)
[2016-06-13] MEDS: levETIRAcetam 500 MG TAB PO SCH ×2 (09:31→21:15)
[2016-06-13] MEDS: SUCRALFATE 1 GM TAB PO SCH ×3 (09:31→17:49)
[2016-06-13] MEDS: predniSONE 20 MG TAB PO SCH (09:31)
[2016-06-13] MEDS: GABAPENTIN 100 MG CAP PO SCH ×2 (09:31→21:15)
[2016-06-13] MEDS: SERTRALINE HCL 50 MG TAB PO SCH (09:31)
[2016-06-13] MEDS: HEPARIN SODIUM - SQ 10,000 UNITS/ML VIAL SQ SCH ×2 (09:31→21:16)
[2016-06-13] MEDS: ATORVASTATIN 10 MG TAB PO SCH (09:31)
[2016-06-13] MEDS: PANTOPRAZOLE SOD 20 MG DELAYED RELEASE TAB PO SCH (09:31)
[2016-06-13] MEDS: LACTOBACILLUS ACIDOPHILUS TAB PO SCH ×2 (09:31→21:15)
[2016-06-13] MEDS: FAMOTIDINE 20 MG TAB PO SCH ×2 (09:31→21:15)
[2016-06-13] MEDS: METOPROLOL TARTRATE 25 MG TAB PO SCH ×2 (09:32→21:15)
[2016-06-13] MEDS ORDERED: PNEUMOCOCCAL POLYVALENT INJ 25 MCG/0.5 ML SYR IM ONE (10:00)
[2016-06-13] MEDS ORDERED: DIATRIZOATE MEGLUM/DIATRIZOATE SOD 9 ML CUP PO ONE (13:30)
--- NOTE | 2016-06-13 13:50 | HHI.PR ---
Subjective Remarks Shortness of breath at rest and on exertion Appetite fair Debilitated No headache Chest pain (Yin French) Objective Objective Results - Vital Signs Date Time Temp Pulse Resp B/P Pulse Ox O2 Delivery O2 Flow Rate FiO2 06/13/16 12:00 98.5 93 20 111/49 93 06/13/16 08:00 98.7 88 22 132/67 92 06/13/16 07:35 93 Nasal Cannula 2.00 06/13/16 06:00 97 06/13/16 05:00 102 06/13/16 04:00 98.4 89 20 159/91 93 06/13/16 04:00 105 06/13/16 03:03 102 06/13/16 02:00 101 06/13/16 01:00 94 06/13/16 00:00 103 06/13/16 00:00 98.2 95 20 151/73 93 06/12/16 23:00 94 06/12/16 22:00 96 06/12/16 21:00 108 06/12/16 20:00 98.0 94 20 142/74 93 06/12/16 20:00 102 06/12/16 19:19 95 Nasal Cannula 2.00 06/12/16 19:00 90 06/12/16 18:54 98.0 91 20 105/58 92 06/12/16 14:00 20 I/O 06/12/16 06/12/16 06/12/16 06/13/16 06/13/16 06/13/16 07:00 15:00 23:00 07:00 15:00 23:00 Intake Total 725 ml 940 ml Output Total 300 ml Balance 725 ml 640 ml Intake Oral 240 ml IV Total 725 ml 700 ml Output Urine Total 300 ml # Voids 2 5 # Bowel Movements 0 (Yin French) Result Diagram: 06/13/1615 06/13/16 0815 ROS General: Fatigue, Weakness, Other (10 point ROS done. Positives noted shortness of breath, wheezing, cough) Pulmonary: Cough, SOB, Wheezing GI: Other (round taut abdomen) (Yin French) Physical Exam Physical Exam GENERAL: An obese, short, well-developed, well-nourished white female in mild respiratory distress. She does respond to verbal stimuli but is slow to respond. Some of this may be secondary to her hard of hearing. Cough HEENT: Atraumatic, normocephalic. PERRLA, 2 mm. No scleral icterus. Pale mucous membranes. Midline septum. NECK: The neck is short and thick but supple. CARDIOVASCULAR: Regular rate and rhythm. No murmurs, rubs or gallops audible. Distant heart sounds. Trace pedal edema bilateral. Pulses are intact. LUNGS: Lungs have wheezes and rhonchi anteriorly and posteriorly with decreased breath sounds throughout the precordium. ABDOMEN: Obese, taut, nontender, nondistended on exam. Active bowel sounds in all four quadrants. EXTREMITIES: She can move her extremities with purpose. Her hand size worker are equal. No clubbing. No cyanosis. NEUROLOGIC: She is semi-alert, a fair historian, hard of hearing, responds to simple questions with short answers. PSYCHOLOGICAL: Voice is clear., Mild anxiety Objective Remarks I'm still coughing a lot (Yin French) A/P Assessment and Plan ASSESSMENT 1. COPD exacerbation. 2. Acute bronchitis. 3. Dyspnea with hypoxemia. 4. Acute kidney injury. 5. Anemia. 6. Leukocytosis. 7. Cardiomegaly. 1. Monitor shortness of breath, cough respiratory status which includes O2 sats. 2. Will monitor her vital signs at least every four hours. 3. Heart-healthy diet. 4. Gentle hydration. 5. Duo nebs., Elevate head of bed at all times 6. BiPAP if warranted. 7. consult pulmonary for their expert opinion. Obtain pain head of bed elevated. We'll ask ST to check for swallow, rule out any aspiration. 8. She will be on heparin for DVT prophylaxis, Pepcid for peptic ulcer disease prophylaxis. 9. She will also be on cefepime, prednisone, azithromycin p.o. 10.Will monitor any vomiting or GI bleed that she complained of coffee-ground emesis. Hemoglobin stable 11. leukocytosis improved, monitor 12.respiratory education and treatment regimen, dual nebs 13.To my knowledge the patient is full code, full aggressive care. Discharge Planning Initiated on admission Discussed With: Nurse, Family (patient), Other (Dr. Rajput, she is seen on his behalf) (Yin French) Assessment and Plan Patient seen and examined visible Discussed with patient Labs reviewed Medications reviewed Plan of care discussed with GUN REPAIR CLERK (Sabrina Rajput MD) Yin French Jun 13, 2016 13:50 Sabrina Rajput MD Jun 13, 2016 15:59 Discharge Planning Initiated on admission Discussed With: Nurse, Family (patient), Other (Dr. Rajput, she is seen on his behalf) Yin French Jun 13, 2016 13:50
[2016-06-13] MEDS: SODIUM CHLORIDE 0.9% FLUSH 5 ML FLUSH IVF SCH ×2 (17:50→21:16)
[2016-06-13] MEDS ORDERED: ATROPINE SULFATE 1 MG/ML VIAL ONE (19:24)
[2016-06-13] MEDS ORDERED: EPINEPHrine HCL (1:10,000) 1 MG/10 ML SYRINGE ONE (19:25)
[2016-06-13] MEDS ORDERED: IOHEXOL 350 MG/ML 10 ML VIAL (for RAD DIAG) IV ONE (20:11)
--- NOTE | 2016-06-13 20:33 | RADRPT ---
EXAM DATE/TIME: 06/13/2016 19:37 [facility] COMPARISON: CT ABDOMEN & PELVIS W CONTRAST, August 17, 2014, 9:17. INDICATIONS : Abdomen distention today. IV CONTRAST: 94 cc Omnipaque 350 (iohexol) IV ORAL CONTRAST: Prescribed oral contrast ingested. RADIATION DOSE: 12.46 CTDIvol (mGy) MEDICAL HISTORY : Cardiovascular disease. Hypertension. Chronic obstructive pulmonary disease. Se izures thyroid disease SURGICAL HISTORY : Hysterectomy. Cholecystectomy. Lumpectomy ENCOUNTER: Initial ACUITY: 1 day PAIN SCALE: 5/10 LOCATION: Abdomen TECHNIQUE: Volumetric scanning of the abdomen and pelvis was performed. Using automated exposure control and adjustment of the mA and/or kV according to patient size, radiation dose was kept as low as reasonably achievable to obtain optimal diagnostic quality images. FINDINGS: There is decreased density seen in the liver. There is a 2 cm hyperdense area seen in the anterior aspect of the lateral segment of the left lobe of the liver. This is nonspecific. It w as present on the prior exam. There is a minimal hypodensity seen in the medial aspect of the spleen measuring 3 mm. This is likely incidental. There is atrophy of the pancreas. The patient is statu s post cholecystectomy. There is a 4 mm calcification seen adjacent to the distal common bile duct. On the coronal images this appears to be outside the ductal system. The common bile duct measures 1 .2 cm. The adrenal glands are normal. There is cystic change at the kidneys bilaterally. No hydrone phrosis identified. The largest cyst is seen at the lateral left kidney measuring 1.4 cm. Atheroscl erotic calcifications are seen throughout the arterial system. No aneurysm is seen. There is a midline hernia containing only mesenteric fat at the level of the umbilicus. The pelvic s tructures appear grossly intact. The patient appears to be status post hysterectomy. There is a augustus pected mild hiatal hernia otherwise the bowel is unremarkable. The patient is status post vertebropl asty throughout the lower thoracic and lumbar spine. There are multiple old rib fractures seen bilat erally. There are patchy areas of density seen at the posterior lung bases bilaterally likely repres enting some degree of consolidation or atelectasis. CONCLUSION: 1. Fatty infiltration of the liver. 2. Midline abdominal hernia containing only mesenteric fat. This is seen at the umbilicus. 3. 4 mm calcification seen adjacent to the common bile duct. On the coronal images this does not ilene ear to clearly be within the ductal system. The common bile duct does measure 1.2 cm. This is likel y distended secondary to a reservoir phenomenon following cholecystectomy. 4. Mild hiatal hernia. 5. Status post vertebroplasty at multiple levels. The patient also has multiple rib fractures in alexander ious stages of healing. 6. Increased parenchymal density in the posterior lung bases representing some degree of consolidatio n or atelectasis. Luiz Shrestha MD on June 13, 2016 at 20:15 Board Certified Radiologist. This report was verified electronically.
[2016-06-13] MEDS: MIRTAZAPINE 15 MG TAB PO SCH (21:15)
[2016-06-14] VITALS (23 sets, daily range): BP systolic 106–181; BP diastolic 54–83; PULSE 78–105; RESP 16–20; TEMP 97.4–98.8; O2SAT 94–98
[2016-06-14] MEDS: ACETAMINOPHEN/HYDROcodone 325 MG/5 MG TAB PO SCH ×4 (04:09→22:20)
[2016-06-14] MEDS: AZITHROMYCIN 250 MG TAB PO SCH (04:09)
[2016-06-14] MEDS: LEVOTHYROXINE SODIUM 25 MCG TAB PO SCH (04:10)
[2016-06-14] MEDS: LEVOTHYROXINE SODIUM 200 MCG TAB PO SCH (04:10)
[2016-06-14] MEDS: CEFEPIME INJ 1,000 MG in SODIUM CHLORIDE 0.9% INJ 100 ML IV SCH ×3 (04:11→22:21)
[2016-06-14] MEDS: LORazepam 0.5 MG TAB PO PRN ×2 (04:33→22:44)
[2016-06-14] MEDS: RESP: ALBUTEROL 2.5 MG/IPRATROPIUM 0.5 MG NEB (SCH) NEB ×4 (07:42→21:05)
[2016-06-14] MEDS: RESP: BUDESONIDE 0.5 MG/2 ML NEB NEB SCH ×2 (07:42→21:05)
[2016-06-14] MEDS: HEPARIN SODIUM - SQ 10,000 UNITS/ML VIAL SQ SCH ×2 (09:40→22:22)
[2016-06-14] MEDS: FAMOTIDINE 20 MG TAB PO SCH ×2 (09:40→22:20)
[2016-06-14] MEDS: GABAPENTIN 100 MG CAP PO SCH ×2 (09:40→22:19)
[2016-06-14] MEDS: METOPROLOL TARTRATE 25 MG TAB PO SCH ×2 (09:40→22:19)
[2016-06-14] MEDS: predniSONE 20 MG TAB PO SCH (09:40)
[2016-06-14] MEDS: SERTRALINE HCL 50 MG TAB PO SCH (09:41)
[2016-06-14] MEDS: LACTOBACILLUS ACIDOPHILUS TAB PO SCH ×2 (09:41→22:19)
[2016-06-14] MEDS: SODIUM CHLORIDE 0.9% FLUSH 5 ML FLUSH IVF SCH ×2 (09:41→22:21)
[2016-06-14] MEDS: PANTOPRAZOLE SOD 20 MG DELAYED RELEASE TAB PO SCH (09:41)
[2016-06-14] MEDS: levETIRAcetam 500 MG TAB PO SCH ×2 (09:41→22:19)
[2016-06-14] MEDS: SUCRALFATE 1 GM TAB PO SCH ×3 (09:41→18:25)
[2016-06-14] MEDS: ATORVASTATIN 10 MG TAB PO SCH (09:41)
--- NOTE | 2016-06-14 16:28 | HHI.PR ---
Subjective Remarks Is still some shortness of breath and cough Still feeling tired and weak No chest pain No palpitations No headache Review of systems a 10 point system otherwise unremarkable Objective Objective Results - Vital Signs Date Time Temp Pulse Resp B/P Pulse Ox O2 Delivery O2 Flow Rate FiO2 06/14/16 12:20 98.4 86 16 106/54 96 06/14/16 08:00 98.8 87 16 127/68 96 06/14/16 07:42 94 21 06/14/16 06:00 78 06/14/16 05:00 88 06/14/16 04:00 98.5 89 18 181/83 98 06/14/16 04:00 88 06/14/16 03:00 88 06/14/16 02:00 90 06/14/16 01:00 88 06/14/16 00:00 98.7 92 18 141/69 98 06/14/16 00:00 88 06/13/16 23:00 90 06/13/16 22:00 94 06/13/16 21:00 96 06/13/16 20:09 93 Nasal Cannula 2.00 06/13/16 20:00 96 06/13/16 20:00 98.5 94 18 127/71 92 06/13/16 19:00 98 06/13/16 17:35 98.7 81 20 110/63 94 I/O 06/13/16 06/13/16 06/13/16 06/14/16 06/14/16 06/14/16 07:00 15:00 23:00 07:00 15:00 23:00 Intake Total 940 ml 570 ml 940 ml Output Total 300 ml 1120 ml 350 ml Balance 640 ml -550 ml 590 ml Intake Oral 240 ml 570 ml 240 ml IV Total 700 ml 700 ml Output Urine Total 300 ml 1120 ml 350 ml # Voids 5 4 Result Diagram: 06/13/1615 06/13/1615 Other Results Date/Time Procedure Status Source Growth 06/13/16 00:10 Gram Stain - Final Resulted Sputum Expectorated Sputum 06/13/16 00:10 Sputum Culture - Preliminary Resulted Sputum Expectorated Sputum HEAVY GROWTH NORMAL RESPIRATORY FRANDY... 06/12/16 03:15 Aerobic Blood Culture - Preliminary Resulted Blood Peripheral NO GROWTH IN 2 DAYS 06/12/16 03:15 Anaerobic Blood Culture - Preliminary Resulted Blood Peripheral NO GROWTH IN 2 DAYS Physical Exam Physical Exam GENERAL: An obese, short, well-developed, well-nourished white female in no respiratory distress. HEENT: Atraumatic, normocephalic. PERRLA, 2 mm. No scleral icterus. Pale mucous membranes. Midline septum. NECK: The neck is short and thick but supple. CARDIOVASCULAR: Regular rate and rhythm. No murmurs, rubs or gallops audible. Distant heart sounds. Trace pedal edema bilateral. Pulses are intact. LUNGS: Lungs have wheezes and rhonchi scattered mostly basally with decreased breath sounds mostly basal region. ABDOMEN: Obese, taut, nontender, nondistended on exam. Active bowel sounds in all four quadrants. EXTREMITIES: She can move her extremities with purpose. Her hand tractor expert are equal. No clubbing. No cyanosis. NEUROLOGIC: She is semi-alert, a fair historian, hard of hearing, responds to simple questions with short answers. PSYCHOLOGICAL: Voice is clear., No anxiety A/P Assessment and Plan 1. COPD exacerbation. 2. Acute bronchitis. 3. Dyspnea with hypoxemia. 4. Acute kidney injury. 5. Anemia. 6. Leukocytosis. 7. Cardiomegaly. Plan 1. Monitor shortness of breath, cough respiratory status which includes O2 sats. 2. Labs reviewed 3. Improving white blood cell count and some decreased H&H likely post hydration will monitor. Improving BUN/creatinine. Lactic acid improved 4. Gentle hydration. 5. Duo nebs., Elevate head of bed at all times 6. BiPAP if warranted. 7. Appreciate pulmonary consultation. 8. on heparin for DVT prophylaxis, Pepcid for peptic ulcer disease prophylaxis. 9. on cefepime, prednisone, azithromycin p.o. 10.labs for tomorrow 11. Medications reviewed 12.respiratory education and treatment regimen, dual nebs Discussed With: Nurse, Family (patient) Sabrina Rajput MD Jun 14, 2016 16:28
[2016-06-14] MEDS: MIRTAZAPINE 15 MG TAB PO SCH (22:21)
[2016-06-15] VITALS (26 sets, daily range): BP systolic 108–162; BP diastolic 53–84; PULSE 80–108; RESP 20; TEMP 97.9–98.8; O2SAT 88–96
[2016-06-15] MEDS: LEVOTHYROXINE SODIUM 25 MCG TAB PO SCH (05:16)
[2016-06-15] MEDS: SODIUM CHLOR 0.9% 1000 ML INJ 1,000 ML IV SCH (05:16)
[2016-06-15] MEDS: CEFEPIME INJ 1,000 MG in SODIUM CHLORIDE 0.9% INJ 100 ML IV SCH ×2 (05:16→13:05)
[2016-06-15] MEDS: LEVOTHYROXINE SODIUM 200 MCG TAB PO SCH (05:16)
[2016-06-15] MEDS: ACETAMINOPHEN/HYDROcodone 325 MG/5 MG TAB PO SCH ×4 (05:17→23:42)
[2016-06-15] MEDS: RESP: BUDESONIDE 0.5 MG/2 ML NEB NEB SCH ×2 (07:22→20:22)
[2016-06-15] MEDS: RESP: ALBUTEROL 2.5 MG/IPRATROPIUM 0.5 MG NEB (SCH) NEB ×4 (07:22→20:00)
[2016-06-15 07:55] LABS: HEMATOCRIT 30.4 % (35.0-46.0); MEAN CELL VOLUME 85.9 FL (80.0-100.0); MEAN CORPUSCULAR HEMOGLOBIN 27.5 PG (27.0-34.0); PLATELET COUNT 186 TH/MM3 (150-450); RED BLOOD COUNT 3.54 MIL/MM3 (4.00-5.30); REVIEW FLAG FINAL; WHITE BLOOD COUNT 12.5 TH/MM3 (4.0-11.0)
[2016-06-15 08:19] LABS: BICARBONATE 26.6 MEQ/L (21.0-32.0); POTASSIUM 3.6 MEQ/L (3.5-5.1)
[2016-06-15] MEDS: LACTOBACILLUS ACIDOPHILUS TAB PO SCH ×2 (09:16→20:21)
[2016-06-15] MEDS: METOPROLOL TARTRATE 25 MG TAB PO SCH ×2 (09:16→20:20)
[2016-06-15] MEDS: GABAPENTIN 100 MG CAP PO SCH ×2 (09:16→20:20)
[2016-06-15] MEDS: FAMOTIDINE 20 MG TAB PO SCH ×2 (09:17→20:21)
[2016-06-15] MEDS: SUCRALFATE 1 GM TAB PO SCH ×3 (09:17→17:15)
[2016-06-15] MEDS: PANTOPRAZOLE SOD 20 MG DELAYED RELEASE TAB PO SCH (09:17)
[2016-06-15] MEDS: SERTRALINE HCL 50 MG TAB PO SCH (09:18)
[2016-06-15] MEDS: ATORVASTATIN 10 MG TAB PO SCH (09:19)
[2016-06-15] MEDS: levETIRAcetam 500 MG TAB PO SCH ×2 (09:20→20:20)
[2016-06-15] MEDS: predniSONE 20 MG TAB PO SCH (09:20)
[2016-06-15] MEDS: HEPARIN SODIUM - SQ 10,000 UNITS/ML VIAL SQ SCH ×2 (09:20→20:21)
[2016-06-15] MEDS: SODIUM CHLORIDE 0.9% FLUSH 5 ML FLUSH IVF SCH ×2 (10:00→20:21)
--- NOTE | 2016-06-15 13:04 | HHI.PR ---
Subjective Remarks Is still some shortness of breath and cough with wheezing Still feeling tired and weak No chest pain No palpitations No headache Had bowel movement yesterday Did walk in the room Review of systems a 10 point system otherwise unremarkable Objective Objective Results - Vital Signs Date Time Temp Pulse Resp B/P Pulse Ox O2 Delivery O2 Flow Rate FiO2 06/15/16 11:00 98.2 88 20 108/53 94 06/15/16 08:00 98.2 84 20 158/84 94 06/15/16 08:00 86 06/15/16 07:22 96 Nasal Cannula 2.00 06/15/16 07:00 84 06/15/16 06:00 91 06/15/16 05:00 94 06/15/16 04:00 86 06/15/16 04:00 98.8 90 20 129/73 96 06/15/16 03:00 92 06/15/16 02:00 86 06/15/16 01:00 94 06/15/16 00:00 88 06/15/16 00:00 98.6 108 20 162/76 88 06/14/16 23:00 98 06/14/16 22:00 105 06/14/16 21:00 96 06/14/16 20:00 97.4 100 20 121/62 94 06/14/16 20:00 92 06/14/16 18:00 98 06/14/16 17:04 98.8 94 16 131/83 94 06/14/16 17:00 96 06/14/16 15:00 84 06/14/16 14:00 92 I/O 06/14/16 06/14/16 06/14/16 06/15/16 06/15/16 06/15/16 07:00 15:00 23:00 07:00 15:00 23:00 Intake Total 940 ml 290 ml 1010 ml Output Total 350 ml 650 ml Balance 590 ml 290 ml 360 ml Intake Oral 240 ml 290 ml 360 ml IV Total 700 ml 650 ml Output Urine Total 350 ml 650 ml # Voids 4 8 # Bowel Movements 2 Result Diagram: 06/15/1662006/15/16620 Other Results Laboratory Tests Test 06/15/16 06:21 White Blood Count 12.5 Red Blood Count 3.54 Hemoglobin 9.7 Hematocrit 30.4 Mean Corpuscular Volume 85.9 Mean Corpuscular Hemoglobin 27.5 Mean Corpuscular Hemoglobin 32.0 Concent Red Cell Distribution Width 18.0 Platelet Count 186 Mean Platelet Volume 8.9 Sodium Level 139 Potassium Level 3.6 Chloride Level 102 Carbon Dioxide Level 26.6 Anion Gap 10 Blood Urea Nitrogen 30 Creatinine 0.98 Estimat Glomerular Filtration 57 Rate Random Glucose 99 Calcium Level 9.3 Date/Time Procedure Status Source Growth 06/13/16 00:10 Gram Stain - Final Complete Sputum Expectorated Sputum 06/13/16 00:10 Sputum Culture - Final Complete Sputum Expectorated Sputum HEAVY GROWTH NORMAL RESPIRATORY FRANDY 06/12/16 03:15 Aerobic Blood Culture - Preliminary Resulted Blood Peripheral NO GROWTH IN 3 DAYS 06/12/16 03:15 Anaerobic Blood Culture - Preliminary Resulted Blood Peripheral NO GROWTH IN 3 DAYS Physical Exam Physical Exam GENERAL: An obese, short, well-developed, well-nourished white female in no respiratory distress. HEENT: Atraumatic, normocephalic. PERRLA, 2 mm. No scleral icterus. Pale mucous membranes. Midline septum. NECK: The neck is short and thick but supple. CARDIOVASCULAR: Regular rate and rhythm. No murmurs, rubs or gallops audible. Distant heart sounds. Trace pedal edema bilateral. Pulses are intact. LUNGS: Lungs have wheezes and rhonchi scattered mostly basally with decreased breath sounds mostly basal region. ABDOMEN: Obese, taut, nontender, nondistended on exam. Active bowel sounds in all four quadrants. EXTREMITIES: She can move her extremities with purpose. Her hand earth moving technician are equal. No clubbing. No cyanosis. NEUROLOGIC: She is semi-alert, a fair historian, hard of hearing, responds to simple questions with short answers. PSYCHOLOGICAL: Voice is clear., No anxiety A/P Assessment and Plan 1. COPD exacerbation. 2. Acute bronchitis. 3. Dyspnea with hypoxemia. 4. Acute kidney injury. 5. Anemia. 6. Leukocytosis. 7. Cardiomegaly. Plan Monitor shortness of breath, cough respiratory status which includes O2 sats. Labs reviewed Improving white blood cell count Anemia stable H&H likely post hydration improving BUN/creatinine. Lactic acid improved Duo nebs., Elevate head of bed at all times BiPAP if warranted. Appreciate pulmonary consultation. on heparin for DVT prophylaxis, Pepcid for peptic ulcer disease prophylaxis. on cefepime, prednisone, azithromycin p.o. Medications reviewed respiratory education and treatment regimen, dual nebs Encourage ambulation Case management for DC planning Discussed With: Nurse, Family (patient) Sabrina Rajput MD Jun 15, 2016 13:04
[2016-06-15] MEDS: LORazepam 0.5 MG TAB PO PRN (13:09)
[2016-06-15] MEDS: MIRTAZAPINE 15 MG TAB PO SCH (20:20)
[2016-06-16] VITALS (23 sets, daily range): BP systolic 96–143; BP diastolic 50–73; PULSE 80–105; RESP 16–22; TEMP 97.9–98.3; O2SAT 92–95
[2016-06-16] MEDS: ACETAMINOPHEN/HYDROcodone 325 MG/5 MG TAB PO SCH ×4 (05:00→22:32)
[2016-06-16] MEDS: LEVOTHYROXINE SODIUM 200 MCG TAB PO SCH (05:40)
[2016-06-16] MEDS: LEVOTHYROXINE SODIUM 25 MCG TAB PO SCH (05:40)
[2016-06-16] MEDS: SODIUM CHLORIDE 0.9% FLUSH 5 ML FLUSH IVF SCH ×2 (08:39→20:13)
[2016-06-16] MEDS: predniSONE 20 MG TAB PO SCH (08:40)
[2016-06-16] MEDS: PANTOPRAZOLE SOD 20 MG DELAYED RELEASE TAB PO SCH (08:40)
[2016-06-16] MEDS: FAMOTIDINE 20 MG TAB PO SCH ×2 (08:40→20:13)
[2016-06-16] MEDS: METOPROLOL TARTRATE 25 MG TAB PO SCH ×2 (08:40→20:12)
[2016-06-16] MEDS: levETIRAcetam 500 MG TAB PO SCH ×2 (08:40→20:12)
[2016-06-16] MEDS: LACTOBACILLUS ACIDOPHILUS TAB PO SCH ×2 (08:40→20:12)
[2016-06-16] MEDS: SUCRALFATE 1 GM TAB PO SCH ×3 (08:40→17:18)
[2016-06-16] MEDS: ATORVASTATIN 10 MG TAB PO SCH (08:40)
[2016-06-16] MEDS: GABAPENTIN 100 MG CAP PO SCH ×2 (08:40→20:12)
[2016-06-16] MEDS: SERTRALINE HCL 50 MG TAB PO SCH (08:41)
[2016-06-16] MEDS: HEPARIN SODIUM - SQ 10,000 UNITS/ML VIAL SQ SCH ×2 (08:41→20:13)
[2016-06-16] MEDS: RESP: ALBUTEROL 2.5 MG/IPRATROPIUM 0.5 MG NEB (SCH) NEB ×4 (08:52→21:04)
[2016-06-16] MEDS: RESP: BUDESONIDE 0.5 MG/2 ML NEB NEB SCH ×2 (08:53→21:04)
--- NOTE | 2016-06-16 10:51 | HHI.PR ---
Subjective Remarks Is still some shortness of breath and cough with wheezing Still feeling tired and weak No chest pain No palpitations No headache Had bowel movement yesterday Did walk in the room Review of systems a 10 point system otherwise unremarkable Objective Objective Results - Vital Signs Date Time Temp Pulse Resp B/P Pulse Ox O2 Delivery O2 Flow Rate FiO2 06/16/16 08:58 94 Nasal Cannula 2.00 06/16/16 08:00 97.9 102 20 96/60 95 06/16/16 07:00 91 06/16/16 06:00 90 06/16/16 05:00 82 06/16/16 04:00 85 06/16/16 03:25 98.1 81 20 143/71 92 06/16/16 03:00 80 06/16/16 02:00 82 06/16/16 01:00 80 06/16/16 00:39 20 06/16/16 00:00 80 06/15/16 23:28 98.1 83 20 123/71 92 06/15/16 23:00 86 06/15/16 22:00 84 06/15/16 21:00 88 06/15/16 20:24 94 Nasal Cannula 2.00 06/15/16 20:00 90 06/15/16 19:41 98.4 93 20 130/63 93 06/15/16 19:00 90 06/15/16 16:00 97.9 90 20 128/60 94 06/15/16 15:14 88 06/15/16 14:00 80 06/15/16 13:00 90 06/15/16 12:00 92 06/15/16 11:00 98.2 88 20 108/53 94 I/O 06/15/16 06/15/16 06/15/16 06/16/16 06/16/16 06/16/16 07:00 15:00 23:00 07:00 15:00 23:00 Intake Total 1010 ml 690 ml 723 ml Output Total 650 ml 500 ml 300 ml Balance 360 ml 190 ml 423 ml Intake Oral 360 ml 240 ml 360 ml IV Total 650 ml 450 ml 363 ml Output Urine Total 650 ml 500 ml 300 ml # Voids 2 4 # Bowel Movements 1 0 Result Diagram: 06/15/1662006/15/16620 Other Results Date/Time Procedure Status Source Growth 06/13/16 00:10 Gram Stain - Final Complete Sputum Expectorated Sputum 06/13/16 00:10 Sputum Culture - Final Complete Sputum Expectorated Sputum HEAVY GROWTH NORMAL RESPIRATORY FRANDY 06/12/16 03:15 Aerobic Blood Culture - Preliminary Resulted Blood Peripheral NO GROWTH IN 3 DAYS 06/12/16 03:15 Anaerobic Blood Culture - Preliminary Resulted Blood Peripheral NO GROWTH IN 3 DAYS Physical Exam Physical Exam GENERAL: An obese, short, well-developed, well-nourished white female in no respiratory distress. HEENT: Atraumatic, normocephalic. PERRLA, 2 mm. No scleral icterus. Pale mucous membranes. Midline septum. NECK: The neck is short and thick but supple. CARDIOVASCULAR: Regular rate and rhythm. No murmurs, rubs or gallops audible. Distant heart sounds. Trace pedal edema bilateral. Pulses are intact. LUNGS: Lungs have wheezes and rhonchi scattered mostly basally improvement than yesterday. With Distant breath sounds in basal region. ABDOMEN: Obese, taut, nontender, nondistended on exam. Active bowel sounds in all four quadrants. EXTREMITIES: She can move her extremities with purpose. Her hand director museum or zoo are equal. No clubbing. No cyanosis. NEUROLOGIC: She is semi-alert, a fair historian, hard of hearing, responds to simple questions with short answers. PSYCHOLOGICAL: Voice is clear., No anxiety A/P Assessment and Plan 1. COPD exacerbation. 2. Acute bronchitis. 3. Dyspnea with hypoxemia. 4. Acute kidney injury. 5. Anemia. 6. Leukocytosis. 7. Cardiomegaly. Plan Monitor shortness of breath, cough respiratory status which includes O2 sats. Labs reviewed Improving white blood cell count Anemia stable H&H likely post hydration improving BUN/creatinine. Lactic acid improved Duo nebs., Elevate head of bed at all times BiPAP if warranted. Appreciate pulmonary consultation. on heparin for DVT prophylaxis, Pepcid for peptic ulcer disease prophylaxis. prednisone Medications reviewed respiratory education and treatment regimen, dual nebs Encourage ambulation Case management for DC planning hopefully tomorrow Discussed With: Nurse, Family (patient) Sabrina Rajput MD Jun 16, 2016 10:51
[2016-06-16] MEDS: LORazepam 0.5 MG TAB PO PRN (15:00)
[2016-06-16] MEDS: MIRTAZAPINE 15 MG TAB PO SCH (20:12)
[2016-06-17] VITALS (23 sets, daily range): BP systolic 118–158; BP diastolic 68–83; PULSE 78–106; RESP 16–19; TEMP 98.2–98.4; O2SAT 90–96
[2016-06-17] MEDS: ACETAMINOPHEN/HYDROcodone 325 MG/5 MG TAB PO SCH ×3 (05:14→16:39)
[2016-06-17] MEDS: LEVOTHYROXINE SODIUM 25 MCG TAB PO SCH (05:14)
[2016-06-17] MEDS: LEVOTHYROXINE SODIUM 200 MCG TAB PO SCH (05:14)
[2016-06-17] MEDS: RESP: ALBUTEROL 2.5 MG/IPRATROPIUM 0.5 MG NEB (SCH) NEB ×3 (07:44→15:18)
[2016-06-17] MEDS: RESP: BUDESONIDE 0.5 MG/2 ML NEB NEB SCH (07:44)
[2016-06-17] MEDS: FAMOTIDINE 20 MG TAB PO SCH (08:20)
[2016-06-17] MEDS: LACTOBACILLUS ACIDOPHILUS TAB PO SCH (08:20)
[2016-06-17] MEDS: ATORVASTATIN 10 MG TAB PO SCH (08:20)
[2016-06-17] MEDS: GABAPENTIN 100 MG CAP PO SCH (08:20)
[2016-06-17] MEDS: SUCRALFATE 1 GM TAB PO SCH ×3 (08:20→18:00)
[2016-06-17] MEDS: METOPROLOL TARTRATE 25 MG TAB PO SCH (08:21)
[2016-06-17] MEDS: PANTOPRAZOLE SOD 20 MG DELAYED RELEASE TAB PO SCH (08:21)
[2016-06-17] MEDS: SERTRALINE HCL 50 MG TAB PO SCH (08:21)
[2016-06-17] MEDS: LORazepam 0.5 MG TAB PO PRN (08:21)
[2016-06-17] MEDS: predniSONE 20 MG TAB PO SCH (08:21)
[2016-06-17] MEDS: levETIRAcetam 500 MG TAB PO SCH (08:21)
[2016-06-17] MEDS: SODIUM CHLORIDE 0.9% FLUSH 5 ML FLUSH IVF SCH (08:22)
[2016-06-17] MEDS: HEPARIN SODIUM - SQ 10,000 UNITS/ML VIAL SQ SCH (08:22)
[2016-06-17] MEDS ORDERED: HYDROmorphone HCL PF 1 MG/ML VIAL IV PUSH PRN (11:15)
--- NOTE | 2016-06-17 14:32 | HHI.PR ---
Subjective Remarks SOB on exertion Appetite good Facial color normal when sleeping or at rest No headache No chest pain (Yin French) Objective Objective Results - Vital Signs Date Time Temp Pulse Resp B/P Pulse Ox O2 Delivery O2 Flow Rate FiO2 06/17/16 12:03 20 06/17/16 12:03 20 06/17/16 12:00 88 06/17/16 12:00 98.4 88 19 145/68 94 06/17/16 11:00 86 06/17/16 10:07 93 Nasal Cannula 2.00 06/17/16 10:00 92 06/17/16 09:00 96 06/17/16 08:00 98.2 102 16 143/83 93 06/17/16 08:00 86 06/17/16 07:00 82 06/17/16 06:28 90 06/17/16 05:00 78 06/17/16 04:03 98.2 83 145/71 96 06/17/16 04:00 82 06/17/16 03:00 86 06/17/16 02:00 84 06/17/16 01:00 82 06/17/16 00:00 88 06/17/16 00:00 98.3 90 158/82 90 06/16/16 23:00 94 06/16/16 22:00 96 06/16/16 21:07 95 Nasal Cannula 1.50 06/16/16 21:00 96 06/16/16 20:00 98 06/16/16 20:00 98.1 98 125/72 92 06/16/16 19:00 102 06/16/16 18:11 100 06/16/16 17:12 98.2 105 22 120/70 93 06/16/16 17:00 103 06/16/16 15:30 98.0 98 16 97/50 94 06/16/16 15:00 91 I/O 06/16/16 06/16/16 06/16/16 06/17/16 06/17/16 06/17/16 07:00 15:00 23:00 07:00 15:00 23:00 Intake Total 723 ml 720 ml 480 ml Output Total 300 ml 300 ml Balance 423 ml 720 ml 180 ml Intake Oral 360 ml 720 ml 480 ml IV Total 363 ml Output Urine Total 300 ml 300 ml # Voids 4 2 1 # Bowel Movements 0 1 (Yin French) Result Diagram: 06/15/16 0621 06/15/16 0621 Other Results Last Impressions Abdomen/Pelvis CT 06/13/16 0000 Signed Impressions: Service Date/Time: Monday, June 13, 2016 19:37 - CONCLUSION: 1. Fatty infiltration of the liver. 2. Midline abdominal hernia containing only mesenteric fat. This is seen at the umbilicus. 3. 4 mm calcification seen adjacent to the common bile duct. On the coronal images this does not appear to clearly be within the ductal system. The common bile duct does measure 1.2 cm. This is likely distended secondary to a reservoir phenomenon following cholecystectomy. 4. Mild hiatal hernia. 5. Status post vertebroplasty at multiple levels. The patient also has multiple rib fractures in various stages of healing. 6. Increased parenchymal density in the posterior lung bases representing some degree of consolidation or atelectasis. Luiz Shrestha MD Chest X-Ray 06/12/16 0339 Signed Impressions: Service Date/Time: Sunday, June 12, 2016 03:55 - CONCLUSION: 1. Cardiomegaly. No acute pulmonary disease. Francois Hughes MD Medications and IVs Active Medications Hydromorphone HCl (Dilaudid Pf Inj) 0.2 mg Q8HR PRN IV PUSH Last administered on 06/17/16t 11:24; Admin Dose 0.2 MG; Start 06/17/16 at 11:15 (Yin French) ROS General: Fatigue (easily), Weakness (generalized but much improved), Other (10 point ROS done positives include generalized weakness but improved, cough shortness of breath exertional. Other systems negative) Pulmonary: Cough, SOB (Yin French) Physical Exam Physical Exam PHYSICAL EXAMINATION GENERAL: This is a short obese well-developed, female who appears to be in no acute distress sleep and rest. She is alert and awake , talkative. HEAD: Normocephalic without any lesion or mass noted. Facial features appear symmetric. OROPHARYNGEAL: Oropharynx without erythema or edema. NECK: Supple. No nuchal rigidity or lymphadenopathy. Trachea midline without deviation. CARDIAC: Regular rhythm, regular rate, S1 and S2 are heard. Distant heart sounds Murmur none; no gallops or rubs. LUNGS: Expiratory wheeze anterior and posterior. Few scattered rhonchi , no rales. ABDOMEN: Soft, nontender, no organomegaly or masses. Bowel sounds are heard in all four quadrants. No rebound. No guarding. EXTREMITIES: No edema. Pulses equal bilateral. NEUROLOGICAL: Patient mood and affect appropriate. No focal deficit SKIN:Warm and moist, dry, color pink, dusky when she coughs Objective Remarks I'm resting better today (Yin French) A/P Assessment and Plan ASSESSMENT 1. COPD exacerbation. 2. Acute bronchitis. 3. Dyspnea with hypoxemia. 4. Acute kidney injury. 5. Anemia. 6. Leukocytosis. 7. Cardiomegaly. 1. Monitor shortness of breath, cough respiratory status which includes O2 sats. , Sleeping without any distress, improving back to her baseline 2. Will monitor her vital signs at least every four hours., Afebrile vital signs stable 3. Heart-healthy diet., Eating 100%, no problems with swallow 4. Gentle hydration. Taking in by mouth fluids well 5. Duo nebs., Elevate head of bed at all times 6. BiPAP if warranted, resting good with O2 per nasal cannula 7. consult pulmonary for their expert opinion. Obtain pain head of bed elevated. 8. She will be on heparin for DVT prophylaxis, Pepcid for peptic ulcer disease prophylaxis. 9. She will also be on cefepime, prednisone, azithromycin p.o. 10. Hemoglobin stable, 9.7 11. leukocytosis 12.5 today Encouraged to turn cough and deep breathe 12.respiratory education and treatment regimen, dual nebs 13.To my knowledge the patient is full code, full aggressive care. We'll discuss discharge either this p.m. or in a.m. with Dr. Rajput Patient concerned with pain management, and her medications. We'll discuss with Dr. Rajput Discharge Planning Initiated on admission Discussed With: Nurse, Family (patient) (Yin French) Assessment and Plan Patient is overall stable Patient seen and examined as above [id number] time spent with patient Labs reviewed Discussed with patient in detail about DC planning Discussed with RN Plan of care discussed with WILLIAM Plan to DC her today back to the facility. As the patient she needed a pain medication for left-sided rib fracture pains Total time spent in DC planning and management of this patient more than 45 minutes Discussed with case technician (Sabrina Rajput MD) Yin French Jun 17, 2016 14:31 Sabrina Rajput MD Jun 17, 2016 15:01
[2016-06-17] MEDS ORDERED: LORA-392 PO (15:03)
[2016-06-17] MEDS ORDERED: HYDR-3516 PO (15:03)
--- NOTE | 2016-06-17 18:32 | HHI.DS ---
Discharge Summary Admission Date Jun 12, 2016 at 04:53 Discharge Date: Jun 17, 2016 Admitting Diagnosis COPD Exacerbation, hypoxemia on usual o2, Bronchitis Brief History This was a pleasant 66-year-old female who had a significant history of COPD. She was just admitted to the hospital on May 13 with some of the same symptoms including shortness of breath and sepsis. The patient was placed on BiPAP during that period of time and was currently still using BiPAP p.r.n. during the day and night. She was complaining of cough which has been fairly constant for the past six days before admission. She stated that she is very sore in her ribs and it hurts to cough. She did state she had fever, some nausea and vomiting. She stated that some of the vomiting day before asdmission had a coffee-ground appearance to it. The patient also stated some altered mental status with some mild confusion. She was a fair historian, answering simple questions, but she was very hard of hearing and her speech was slow. The patient had been a long-term tobacco user but stated she quit approximately four years ago. The patient also was complaining of her abdomen beginning to swell over the past few months. She had been treated for debility in the recent past and was currently in a SNF for rehabilitation. She was short of breath at rest and with exertion but currently is able to sleep when she was not being aroused. CBC/BMP: 06/15/16 0621 06/15/16 0621 Significant Findings Laboratory Tests Test 06/15/16 06:21 White Blood Count 12.5 TH/MM3 (4.0-11.0) Red Blood Count 3.54 MIL/MM3 (4.00-5.30) Hemoglobin 9.7 GM/DL (11.6-15.3) Hematocrit 30.4 % (35.0-46.0) Red Cell Distribution Width 18.0 % (11.6-17.2) Blood Urea Nitrogen 30 MG/DL (7-18) Estimat Glomerular Filtration 57 ML/MIN (>89) Rate Imaging Last Impressions Abdomen/Pelvis CT 06/13/16 0000 Signed Impressions: Service Date/Time: Monday, June 13, 2016 19:37 - CONCLUSION: 1. Fatty infiltration of the liver. 2. Midline abdominal hernia containing only mesenteric fat. This is seen at the umbilicus. 3. 4 mm calcification seen adjacent to the common bile duct. On the coronal images this does not appear to clearly be within the ductal system. The common bile duct does measure 1.2 cm. This is likely distended secondary to a reservoir phenomenon following cholecystectomy. 4. Mild hiatal hernia. 5. Status post vertebroplasty at multiple levels. The patient also has multiple rib fractures in various stages of healing. 6. Increased parenchymal density in the posterior lung bases representing some degree of consolidation or atelectasis. Luiz Shrestha MD Chest X-Ray 06/12/16 0339 Signed Impressions: Service Date/Time: Sunday, June 12, 2016 03:55 - CONCLUSION: 1. Cardiomegaly. No acute pulmonary disease. Francois Hughes MD PE at Discharge PHYSICAL EXAMINATION GENERAL: This was a short obese well-developed, female who appeared to be in no acute distress sleep and rest. She was alert and awake, talkative. HEAD: Normocephalic without any lesion or mass noted. Facial features appear symmetric. OROPHARYNGEAL: Oropharynx without erythema or edema. NECK: Supple. No nuchal rigidity or lymphadenopathy. Trachea midline without deviation. CARDIAC: Regular rhythm, regular rate, S1 and S2 were heard. Distant heart sounds Murmur none; no gallops or rubs. LUNGS: Expiratory wheeze anterior and posterior. Few scattered rhonchi , no rales. ABDOMEN: Soft, nontender, no organomegaly or masses. Bowel sounds were heard in all four quadrants. No rebound. No guarding. EXTREMITIES: No edema. Pulses equal bilateral. NEUROLOGICAL: Patient mood and affect appropriate. No focal deficit SKIN:Warm and moist, dry, color pink, dusky when she coughs Hospital Course In the ER the patient was placed on a non-rebreather due to her sat being in the 70s when EMS picked her up. Her sats did return to the 96-97% range on the non-rebreather. She ddi have a coarse productive sounding cough, but currently was not coughing up anything. According to the record the patient also had UTI, Clostridium difficile, anxiety, depression, syncope and pneumonia. The following diagnosis were used for patient hospital stay and plan of care. 1. COPD exacerbation. 2. Acute bronchitis. 3. Dyspnea with hypoxemia. 4. Acute kidney injury. 5. Anemia. 6. Leukocytosis. 7. Cardiomegaly. Patient had and was monitored shortness of breath, cough, and her respiratory status which includes O2 sats. moniotring On day of discharge, pt was Sleeping without any distress, improving back to her baseline vital signs at least every four hours and prn Afebrile vital signs stable on day of discharge. Heart-healthy diet., Eating 100%, no problems with swallow. Appetite improved throughout her stay with her medical management. Gentle hydration was initiated on admission, and patient was taking in PO fluids well. Duo nebs were used throughout stay. Elevate head of bed at all times to improve work of breathing. BiPAP was ordered,if warranted, resting good with O2 per nasal cannula. Patient did not use any BiPap during hospital stay. pulmonary for their expert opinion and they assisted in her medical management. Head of bed elevated throughout hospital stay She was on heparin for DVT prophylaxis, Pepcid for peptic ulcer disease prophylaxis. She will also be on cefepime, prednisone, azithromycin p.o. Hemoglobin stable, 9.7 day of discharge. Recieved no blood products, Monitored per labs leukocytosis 12.5 today, stable Encouraged to turn cough and deep breathe respiratory education and treatment regimen, dual nebs Dr. Rajput saw patient and noted this plan of care. Patient is overall stable Patient seen and examined as above [id number] time spent with patient Labs reviewed Discussed with patient in detail about DC planning Discussed with RN Plan of care discussed with SECOND WATCH SERGEANTYin Pimentel Plan to DC her today back to the facility. As the patient she needed a pain medication for left-sided rib fracture pains Total time spent in DC planning and management of this patient more than 45 minutes Discussed with disease case manager rn Pt Condition on Discharge: Fair Discharge Disposition: Discharge to SNF Discharge Instructions DIET: Follow Instructions for: Heart Healthy Diet Activities you can perform: Weight Bearing as Nel Follow up Referrals: Internal Medicine PCP Follow-up - 1 Week Pulmonology - 1 Week Continued Medications: Amlodipine (Amlodipine) 10 Mg Tab 10 MG PO DAILY HTN #30 Ref 0 TAB Atorvastatin (Atorvastatin) 10 Mg Tab 10 MG PO DAILY Cholesterol Management #30 Ref 0 TAB Budesonide Neb (Budesonide Neb) 0.5 Mg/2 Ml Neb 0.5 MG NEB BID NEB COPD #60 Ref 0 NEBULE Gabapentin (Gabapentin) 100 Mg Cap 100 MG PO TID #90 Ref 0 CAP Guaifenesin-Dextromethorphan Liq (Guaifenesin DM Liq) 10-100 Mg/5 Ml Liq 10 ML PO Q6HR PRN COUGH #1 Ref 0 BOTTLE Hydrocodone-Acetaminophen (Hydrocodone-Acetaminophen) 5-325 mg Tab 1 TAB PO q6h Pain Management #30 TAB (This prescription has been renewed) Ipratropium-Albuterol Neb (Duoneb) 0.5-2.5 Mg/3 Ml Neb 1 AMPULE NEB QID COPD #60 ML Lactobacillus Acidophilus (Lactobacillus Acidophilus) 1 Tab Tab 1 TAB PO BID C-DIFF #30 Ref 0 TAB Levetiracetam (Keppra) 500 Mg Tab 500 MG PO BID Control Seizures #60 Ref 0 TAB Levothyroxine (Levothyroxine) 25 Mcg Tab 25 MCG PO DAILY Thyroid #30 Ref 0 TAB Levothyroxine (Levothyroxine) 200 Mcg Tab 200 MCG PO DAILY Thyroid #30 Ref 0 TAB Lisinopril (Lisinopril) 5 Mg Tab 5 MG PO DAILY HTN #30 Ref 0 TAB Lorazepam (Ativan) 0.5 Mg Tab 0.5 MG PO TID PRN ANXIETY #30 TAB (This prescription has been renewed) Metoprolol Tartrate (Metoprolol Tartrate) 25 Mg Tab 12.5 MG PO Q12HR HTN #60 Ref 0 TAB Mirtazapine (Mirtazapine) 15 Mg Tab 15 MG PO HS Depression Control #30 Ref 0 TAB Nitroglycerin SL (Nitroglycerin SL) 0.4 Mg Subl 0.4 MG SL DIRECTED ONE TABLET UNDER THE TONGUE NEEDED FOR CHEST PAIN, MAY REPEAT EVERY FIVE MINUTES FOR A TOTAL OF 3 DOSES OR CALL 911 IF NO RELIEF PRN CHEST PAIN #100 Ref 0 TAB.SL Omeprazole (Omeprazole) 20 Mg Cap 20 MG PO DAILY GERD Prednisone (Prednisone) 10 Mg Tab 10 MG PO DAILY COPD Ref 0 TAB Prednisone (Prednisone) 20 Mg Tab 20 MG PO DAILY COPD #4 TAB Sennosides-Docusate Sodium (Senna S) 8.6-50 Mg Tab 1 TAB PO BID PRN CONSTIPATION Sertraline (Sertraline) 50 Mg Tab 50 MG PO DAILY Depression Control #30 Ref 0 TAB Sucralfate (Sucralfate) 1 Gm Tab 1 GM PO TID on empty stomach STOMACH CRAMPS #90 Ref 0 TAB Tiotropium Inh (Spiriva Handihaler) 18 Mcg Cap 18 MCG INH DAILY 1 capsule = 18 mcg COPD #30 Ref 0 CAP Yin French Jun 17, 2016 18:32
[2016-06-19] MEDS ORDERED: methylPREDNISolone SOD SUCC 40 MG/1 ML VIAL IV PUSH SCH (12:00)
== END 2016-06-17 18:30 | DRG 190 ==
LOC: NEPC 02:52 → NEDA 04:53 → HCIN 10:18
PROVIDERS: ADMIT Specialist; ATTEND Specialist
DX: J44.0 Chronic obstructive pulmonary disease with (acute) lower respiratory infection (principal); J18.9 Pneumonia, unspecified organism; N17.9 Acute kidney failure, unspecified; I42.9 Cardiomyopathy, unspecified; K22.70 Barrett's esophagus without dysplasia; N39.0 Urinary tract infection, site not specified; Z99.81 Dependence on supplemental oxygen; G35 Multiple sclerosis; J44.1 Chronic obstructive pulmonary disease with (acute) exacerbation; D64.9 Anemia, unspecified; E78.5 Hyperlipidemia, unspecified; G40.909 Epilepsy, unspecified, not intractable, without status epilepticus; I10 Essential (primary) hypertension; I25.10 Atherosclerotic heart disease of native coronary artery without angina pectoris; J20.9 Acute bronchitis, unspecified; J45.909 Unspecified asthma, uncomplicated; K21.9 Gastro-esophageal reflux disease without esophagitis; R09.02 Hypoxemia; H91.90 Unspecified hearing loss, unspecified ear; Z87.891 Personal history of nicotine dependence; F41.8 Other specified anxiety disorders; Z85.42 Personal history of malignant neoplasm of other parts of uterus
CPT/HCPCS: 71010; 74177; 80048; 80053; 82550; 83605; 83690; 83880; 84484; 85007; 85027; 86140; 87040; 87070; 87205; 93005; 94640; 94664; 96374; J0171; J0456; J0461; J0692; J1170; J1644; J2930; J7030; J7050; J7512; J7613; J7626; Q9963; Q9967

== ENCOUNTER 2016-06-18 22:17 | Inpatient (IN) | payer MEDICARE, OTHER ==
[~2016-06-18] VITALS: Ht 137.2 cm; Wt 100.0 kg
[2016-06-18 22:10] VITALS: O2SAT 96
[~2016-06-18 22:17] MED LIST changes: -ALBU0.08 NEB; +ATOR10TA15 PO; -CEFT500T3 PO; -DOXY100C PO; -DULC10SU3 RECTAL
[2016-06-18 22:21] VITALS: BP 119/64; PULSE 99; RESP 24; O2SAT 93
[2016-06-18] MEDS ORDERED: VANCOMYCIN INJ 1,000 MG in SODIUM CHLOR 0.9% 250 ML INJ 250 ML IV STA (22:32)
[2016-06-18 22:35] VITALS: RESP 20; O2SAT 100
[2016-06-18] MEDS ORDERED: AZTREONAM INJ 2,000 MG in SODIUM CHLORIDE 0.9% INJ 100 ML IV ONE (22:45)
--- NOTE | 2016-06-18 22:58 | RADRPT ---
EXAM DATE/TIME: 06/18/2016 22:44 [facility] COMPARISON: CHEST SINGLE AP, June 12, 2016, 3:55. INDICATIONS : Short of breath, cough MEDICAL HISTORY : Hypertension. Chronic obstructive pulmonary disease. SURGICAL HISTORY : None. ENCOUNTER: Initial ACUITY: 1 day PAIN SCORE: 0/10 LOCATION: Bilateral chest FINDINGS: A single view of the chest demonstrates the lungs to be symmetrically aerated without evidence of mas s, infiltrate or effusion. The cardiomediastinal contours are unremarkable. Nonacute bilateral rib fractures are again noted. Patient has had multilevel thoracic and lumbar kyph oplasty. CONCLUSION: No evidence of acute cardiopulmonary disease. Luiz Oates MD on June 18, 2016 at 22:55 Board Certified Radiologist. This report was verified electronically.
[2016-06-18 23:03] LABS: BACTERIA, URINE RARE /hpf; BLOOD, URINE NEG (NEG); COMMENT (UR) CATH-CULTURE IND; CULTURE IF INDICATED CATH CULTURE IND; GLUCOSE,URINE NEG (NEG); HYALINE CAST, URINE 17 /lpf (RARE); KETONE, URINE NEG (NEG); MUCUS URINE FEW /lpf (OCC); NITRITE,URINE NEG (NEG); PH, URINE 5.5 (5.0-8.5); SQUAMOUS EPITHELIAL CELL URINE <1 /hpf (0-5); URINE COLOR YELLOW (YELLW/STRAW)
[2016-06-18 23:09] LABS: AUTOMATED NEUTROPHIL # 12.7 TH/MM3 (1.8-7.7); BASOPHIL # 0.1 TH/MM3 (0-0.2); BASOPHIL % 0.6 % (0.0-2.0); EOSINOPHIL # 0.1 TH/MM3 (0-0.4); EOSINOPHIL % 0.9 % (0.0-4.0); HEMATOCRIT 33.3 % (35.0-46.0); HEMO FLAGS DIFF FINAL; LYMPH % 13.2 % (9.0-44.0); LYMPHOCYTE # 2.2 TH/MM3 (1.0-4.8); MEAN CELL VOLUME 87.4 FL (80.0-100.0); MEAN CORPUSCULAR HEMOGLOBIN 27.6 PG (27.0-34.0); MEAN CORPUSCULAR HGB CONC 31.6 % (32.0-36.0); NEUT % 75.3 % (16.0-70.0); PLATELET COUNT 296 TH/MM3 (150-450); RED BLOOD COUNT 3.81 MIL/MM3 (4.00-5.30); RED CELL DISTRIBUTION WIDTH 18.2 % (11.6-17.2); WHITE BLOOD COUNT 16.9 TH/MM3 (4.0-11.0)
[2016-06-18 23:11] LABS: BLOOD GAS VENOUS BASE EXCESS -3.4 mmol/L (-2-2); BLOOD GAS VENOUS HCO3 21 mmol/L (22-26); BLOOD GAS VENOUS O2 CONTENT 10.4 Vol % (9.0-17.0); BLOOD GAS VENOUS O2 HGB SAT 71 % (70-76); BLOOD GAS VENOUS PCO2 39 mmHg (44-48); BLOOD GAS VENOUS PO2 44 mmHg (35-40); BLOOD GAS VENOUS pH 7.35 (7.360-7.400); CRITICAL VALUE NO; DRAW SITE LINE; FIO2 100 %; OXYGEN DEVICE NPPV; STAT NO; TEMP CORR TO 98.6; VENT SETTINGS IPAP/10/EPAP5
[2016-06-18] MEDS ORDERED: RESP: ALBUTEROL 2.5 MG/IPRATROPIUM 0.5 MG NEB (SCH) NEB ONE (23:15)
[2016-06-18] MEDS ORDERED: SODIUM CHLOR 0.9% 1000 ML INJ 1,000 ML IV ONE ×2 (23:15→23:45)
[2016-06-18] MEDS ORDERED: ACETAMINOPHEN 650 MG SUPP RECTAL ONE (23:15)
[2016-06-18 23:17] LABS: APTT (PATIENT) 23.9 SEC (24.3-30.1); PROTHROMBIN TIME - PATIENT 10.7 SEC (9.8-11.6)
[2016-06-18 23:23] LABS: ALKALINE PHOSPHATASE 89 U/L (45-117); ALT (GPT) 29 U/L (10-53); ANION GAP 12 MEQ/L (5-15); AST (GOT) 12 U/L (15-37); BICARBONATE 23.3 MEQ/L (21.0-32.0); BLOOD UREA NITROGEN 41 MG/DL (7-18); CHLORIDE 107 MEQ/L (98-107); GLOMERULAR FILTRATION RATE 36 ML/MIN (>89); MAGNESIUM 1.9 MG/DL (1.5-2.5); POTASSIUM 3.9 MEQ/L (3.5-5.1); SODIUM (NA) 142 MEQ/L (136-145); TOTAL BILIRUBIN ADULT 0.4 MG/DL (0.2-1.0)
[2016-06-18 23:32] LABS: CREATINE KINASE 26 U/L (26-192)
[2016-06-18 23:41] VITALS: BP 129/64; PULSE 96; RESP 32; O2SAT 100
[2016-06-19] VITALS (9 sets, daily range): BP systolic 125–162; BP diastolic 59–84; PULSE 90–107; RESP 20–21; TEMP 96.5–97.6; O2SAT 92–97
[2016-06-19] MEDS ORDERED: MORPHINE SULFATE 4 MG/ML INJ IV PUSH ONE (00:15)
--- NOTE | 2016-06-19 00:22 | PD ---
HPI Chief Complaint: Respiratory Distress Time Seen by Provider: 22:32 Travel History International Travel<30 days: No Contact w/Intl Traveler<30days: No Traveled to known affect area: No History of Present Illness HPI Patient 66-year-old female presents emergency department for evaluation of shortness of breath cough and fever. Patient was recently discharged from this institution for COPD exacerbation and hypoxia respiratory distress sepsis. Patient has had 2 admissions this hospital in the past 2 months. Per EMS patient had significantly increased work of breathing at the shelter was placed on CPAP on transportation. A room air saturation was not obtained prior to placing on CPAP. Patient was febrile and nursing to her home to 101 Fahrenheit. She's also had cough congestion and sputum production which is green. Patient also complains of a left-sided chest pain difficult to clarify further history regarding this that she is on CPAP mask. Last majority of history is obtained from EMS. PFSH Past Medical History Arthritis: Yes Asthma: Yes Autoimmune Disease: Yes (MS) Blood Disorders: Yes Anxiety: No Depression: No Heart Rhythm Problems: Yes (mumur) Cancer: Yes (ENDOMETRIAL CA (with hysterectomy)) Cardiomyopathy: Yes Cardiovascular Problems: Yes High Cholesterol: Yes Chemotherapy: No Chest Pain: Yes Congestive Heart Failure: Yes (MAYBE PT NOT SURE YET) COPD: No Cerebrovascular Accident: No Coronary Artery Disease: No Diabetes: No Diminished Hearing: Yes ([place]) Endocrine: Yes Gastrointestinal Disorders: Yes ( ESOPHAGEAL EROSION) Genetic Disorder: Yes GERD: Yes Genitourinary: No Headaches: No Hiatal Hernia: No Hypertension: Yes Immune Disorder: Yes (m.s., graves disease) Implanted Vascular Access Dvce: No Kidney Stones: No Musculoskeletal: Yes (fx right patella, right tibia fracture - fall in 2013) Neurologic: Yes (MS, NEUROPATHY, GRAVES DISEASE) Psychiatric: No Reproductive: No Respiratory: Yes (COPD, ASTHMA) Immunizations Current: Yes Migraines: Yes Myocardial Infarction: No Pancreatitis: Yes Pneumonia: Yes Radiation Therapy: No Renal Failure: No Seizures: Yes Sickle Cell Disease: No Sleep Apnea: No Thyroid Disease: Yes Ulcer: Yes ( ) Tetanus Vaccination: Unknown Influenza Vaccination: Yes Menopausal: Yes : 1 Para: 1 Past Surgical History AICD: No Arteriovenous Shunt: No Cardiac Surgery: No Cholecystectomy: Yes Ear Surgery: No Endocrine Surgery: No Eye Surgery: No Genitourinary Surgery: No Gynecologic Surgery: Yes (hysterectomy) Hysterectomy: Yes Insulin Pump: No Joint Replacement: No Neurologic Surgery: Yes (KYPHOPLASTY T5,L1, SACRAL AND OTHERS) Oral Surgery: No Pacemaker: No Thoracic Surgery: No Tonsillectomy: Yes Other Surgery: Yes (bilat lumpectomy) Social History Alcohol Use: No Tobacco Use: No (STOPPED APR 2012) Substance Use: No Allergies-Medications (Allergen,Severity, Reaction): Coded Allergies: Amitriptyline (Verified Allergy, Severe, SWELLING, 06/18/16) Penicillin (Verified Allergy, Severe, Anaphylaxis, 06/18/16) Sulfa (Verified Allergy, Severe, Anaphylaxis, 06/18/16) Aspirin (Verified Allergy, Intermediate, Rash, 06/18/16) *MDRO Multi-Drug Resistant Organism (Verified Adverse Reaction, Unknown, ) MRSA PCR Screen POSITIVE - 07/22/2015, 05/13/2016 MRSA sputum 06/2015 Reported Meds & Prescriptions Reported Meds & Active Scripts Active Ativan (Lorazepam) 0.5 Mg Tab 0.5 Mg PO TID PRN Hydrocodone-Acetaminophen 5-325 mg Tab 1 Tab PO Q6H Prednisone 20 Mg Tab 20 Mg PO DAILY Duoneb (Ipratropium-Albuterol Neb) 0.5-2.5 Mg/3 Ml Neb 1 Ampule NEB QID Reported Atorvastatin (Atorvastatin Calcium) 10 Mg Tab 10 Mg PO DAILY Nitroglycerin SL (Nitroglycerin) 0.4 Mg Subl 0.4 Mg SL DIRECTED PRN ONE TABLET UNDER THE TONGUE NEEDED FOR CHEST PAIN, MAY REPEAT EVERY FIVE MINUTES FOR A TOTAL OF 3 DOSES OR CALL 911 IF NO RELIEF Guaifenesin DM Liq (Guaifenesin-Dextromethorphan Liq) 10-100 Mg/5 Ml Liq 10 Ml PO Q6HR PRN Sucralfate 1 Gm Tab 1 Gm PO TID on empty stomach Spiriva Handihaler (Tiotropium Inh) 18 Mcg Cap 18 Mcg INH DAILY 1 capsule = 18 mcg Senna S (Sennosides-Docusate Sodium) 8.6-50 Mg Tab 1 Tab PO BID PRN Keppra (Levetiracetam) 500 Mg Tab 500 Mg PO BID Gabapentin 100 Mg Cap 100 Mg PO TID Budesonide Neb 0.5 Mg/2 Ml Neb 0.5 Mg NEB BID NEB Amlodipine (Amlodipine Besylate) 10 Mg Tab 10 Mg PO DAILY Sertraline (Sertraline HCl) 50 Mg Tab 50 Mg PO DAILY Prednisone 10 Mg Tab 10 Mg PO DAILY Omeprazole 20 Mg Cap 20 Mg PO DAILY Mirtazapine 15 Mg Tab 15 Mg PO HS Metoprolol Tartrate 25 Mg Tab 12.5 Mg PO Q12HR Lactobacillus Acidophilus 1 Tab Tab 1 Tab PO BID Lisinopril 5 Mg Tab 5 Mg PO DAILY Levothyroxine (Levothyroxine Sodium) 200 Mcg Tab 200 Mcg PO DAILY Levothyroxine (Levothyroxine Sodium) 25 Mcg Tab 25 Mcg PO DAILY Review of Systems Except as stated in HPI: all other systems reviewed are Neg Physical Exam Narrative GENERAL: Well-developed, morbidly obese tachypneic with increased work of breathing. SKIN: Warm and dry. HEAD: Atraumatic. Normocephalic. EYES: Pupils equal and round. No scleral icterus. No injection or drainage. ENT: No nasal bleeding or discharge. Mucous membranes pink and moist. NECK: Trachea midline. No JVD. CARDIOVASCULAR: Regular rate and rhythm. No murmur appreciated. RESPIRATORY: Intracostal retractions. Clear to auscultation. Coarse breath sounds bilaterally, rales seem to be emanating from upper respiratory phlegm. Tachypnea. GASTROINTESTINAL: Abdomen soft, non-tender, nondistended. Hepatic and splenic margins not palpable. MUSCULOSKELETAL: No obvious deformities. No clubbing. No cyanosis. No edema. NEUROLOGICAL: Awake and alert. No obvious cranial nerve deficits. Motor grossly within normal limits. Normal speech. PSYCHIATRIC: Appropriate mood and affect; insight and judgment normal. Data Data Last Documented VS Vital Signs Date Time Temp Pulse Resp B/P Pulse Ox O2 Delivery O2 Flow Rate FiO2 06/19/16 01:00 94 Nasal Cannula 4.00 06/18/16 23:41 96 32 129/64 06/18/16 22:10 100 Orders Electrocardiogram (06/18/16 22:32) Complete Blood Count With Diff (06/18/16 22:32) Comprehensive Metabolic Panel (06/18/16 22:32) Prothrombin Time / Inr (Pt) (06/18/16 22:32) Act Partial Throm Time (Ptt) (06/18/16 22:32) Lactic Acid Sepsis Protocol (06/18/16 22:32) Magnesium (Mg) (06/18/16 22:32) Phosphorus (Po4) (06/18/16 22:32) Ckmb (Isoenzyme) Profile (06/18/16 22:32) Troponin I (06/18/16 22:32) Urinalysis - C+S If Indicated (06/18/16 22:32) Blood Culture (06/18/16 22:32) Chest, Single Ap (06/18/16 22:32) Blood Glucose (06/18/16 22:32) Ecg Monitoring (06/18/16 22:32) Iv Access Insert/Monitor (06/18/16 22:32) Oximetry (06/18/16 22:32) Oxygen Administration (06/18/16 22:32) Vancomycin Inj (Vancomycin Inj) (06/18/16 22:32) Aztreonam Inj (Azactam Inj) (06/18/16 22:45) Resp Bipap / Cpap Non Invas Vt (06/18/16 ) Blood Gas Venous (Vbg) (06/18/16 22:49) Sodium Chlor 0.9% 1000 Ml Inj (Ns 1000 M (06/18/16 23:15) Acetaminophen Supp (Tylenol Supp) (06/18/16 23:15) Albuterol-Ipratropium Neb (Duoneb Neb) (06/18/16 23:15) Urine Culture (06/18/16 22:30) Sodium Chlor 0.9% 1000 Ml Inj (Ns 1000 M (06/18/16 23:45) Ct Pulmonary Angiogram (06/19/16 ) Morphine Inj (Morphine Inj) (06/19/16 00:15) Iodixanol 320 Inj (Rad Ct) (Visipaque 32 (06/19/16 01:43) Admit Order (Ed Use Only) (06/19/16 ) Labs Laboratory Tests Test 06/18/16 06/18/16 06/18/16 22:30 22:35 23:00 Urine Color YELLOW Urine Turbidity CLEAR Urine pH 5.5 Urine Specific [place] 1.020 Urine Protein 30 mg/dL Urine Glucose (UA) NEG mg/dL Urine Ketones NEG mg/dL Urine Occult Blood NEG Urine Nitrite NEG Urine Bilirubin NEG Urine Urobilinogen LESS THAN 2.0 MG/DL Urine Leukocyte Esterase NEG Urine RBC 1 /hpf Urine WBC 1 /hpf Urine Squamous Epithelial <1 /hpf Cells Urine Bacteria RARE /hpf Urine Hyaline Casts 17 /lpf Urine Mucus FEW /lpf Microscopic Urinalysis Comment CATH-CULTURE IND White Blood Count 16.9 TH/MM3 Red Blood Count 3.81 MIL/MM3 Hemoglobin 10.5 GM/DL Hematocrit 33.3 % Mean Corpuscular Volume 87.4 FL Mean Corpuscular Hemoglobin 27.6 PG Mean Corpuscular Hemoglobin 31.6 % Concent Red Cell Distribution Width 18.2 % Platelet Count 296 TH/MM3 Mean Platelet Volume 9.4 FL Neutrophils (%) (Auto) 75.3 % Lymphocytes (%) (Auto) 13.2 % Monocytes (%) (Auto) 10.0 % Eosinophils (%) (Auto) 0.9 % Basophils (%) (Auto) 0.6 % Neutrophils # (Auto) 12.7 TH/MM3 Lymphocytes # (Auto) 2.2 TH/MM3 Monocytes # (Auto) 1.7 TH/MM3 Eosinophils # (Auto) 0.1 TH/MM3 Basophils # (Auto) 0.1 TH/MM3 CBC Comment DIFF FINAL Differential Comment Prothrombin Time 10.7 SEC Prothromb Time International 1.0 RATIO Ratio Activated Partial 23.9 SEC Thromboplast Time Sodium Level 142 MEQ/L Potassium Level 3.9 MEQ/L Chloride Level 107 MEQ/L Carbon Dioxide Level 23.3 MEQ/L Anion Gap 12 MEQ/L Blood Urea Nitrogen 41 MG/DL Creatinine 1.46 MG/DL Estimat Glomerular Filtration 36 ML/MIN Rate Random Glucose 236 MG/DL Calcium Level 8.6 MG/DL Phosphorus Level 4.3 MG/DL Magnesium Level 1.9 MG/DL Total Bilirubin 0.4 MG/DL Aspartate Amino Transf 12 U/L (AST/SGOT) Alanine Aminotransferase 29 U/L (ALT/SGPT) Alkaline Phosphatase 89 U/L Total Creatine Kinase 26 U/L Troponin I LESS THAN 0.02 NG/ML Total Protein 7.9 GM/DL Albumin 3.3 GM/DL Lactic Acid Level 2.8 mmol/L Blood Gas Puncture Site LINE Blood Gas Patient Temperature 98.6 Venous Blood pH 7.35 Venous Blood Partial Pressure 39 mmHg CO2 Venous Blood Partial Pressure 44 mmHg O2 Venous Blood HCO3 21 mmol/L Venous Blood Oxygen Saturation 71 % Venous Blood Oxygen Content 10.4 Vol % Venous Blood Base Excess -3.4 mmol/L Oxygen Delivery Device NPPV Blood Gas Ventilator Setting IPAP/10/EPAP5 Blood Gas Inspired Oxygen 100 % [facility] Medical Decision Making Medical Screen Exam Complete: Yes Emergency Medical Condition: Yes Interpretation(s) EKG shows normal sinus rhythm with normal axis and early R-wave transition. We will consider a PTH. Intervals within normal limits. This a borderline EKG. Differential Diagnosis Pneumonia, PE, COPD exacerbation, respiratory distress, fever, sepsis. Narrative Course Patient was roomed in the emergency department, she was febrile on arrival tachypneic. She meets Sirs criteria. Source of infection is suspected as pneumonia. She was started on vancomycin and Azactam given that she has a history of penicillin allergy. Labs do show minimal evidence for urinary tract infection, chest x-ray however is clear. White blood cell count returns at 16, 000 with lactic acid 2.8 and a creatinine of 1.4. White blood cell count is elevated over discharge levels, creatinine is also elevated over discharge levels. Patient has evidence of UTI, considering repeat CAT scan was ordered which does show posterior consolidations consistent with bilateral pneumonia, no evidence of PE. Patient was able to be weaned off of BiPAP is tolerating nasal cannula just fine. She was given morphine for pain at this point she stated "morphine doesn't work for that works is Dilaudid". Patient's EKG troponin are negative. She does have an [place] eyes well call find her for diagnosis of severe sepsis. She was given 2 L of fluid by IV in the emergency department. Further fluid resuscitation was kept to a minimum given a history of CHF per EMS as well as minimal elevation in lactic acid. She is medically stable for the floor at this time she has been observed for 90 minutes off of BiPAP and tolerated nasal cannula just fine. She was discussed with Luiz CHINCHILLA for [facility]. Diagnosis Primary Impression: Sepsis Additional Impressions: PNA (pneumonia) UTI (urinary tract infection) Admitting Information Admitting Physician Requests: Admit Condition: Stable Osman Alvarez MD Jun 19, 2016 00:22
[2016-06-19 00:47] LABS: LACTIC ACID GHOST NOT REPORTABLE
[2016-06-19] MEDS ORDERED: IODIXANOL 320 MG/ML 10 ML VIAL (for Rad CT) IV ONE (01:43)
--- NOTE | 2016-06-19 01:55 | RADRPT ---
EXAM DATE/TIME: 06/19/2016 01:23 [facility] COMPARISON: CT PULMONARY ANGIOGRAM, September 11, 2015, 16:42. INDICATIONS : Shortness of breath. IV CONTRAST: 50 cc Visipaque (iodixanol) IV RADIATION DOSE: 23.31 CTDIvol (mGy) MEDICAL HISTORY : Cardiovascular disease. Hypertension. Chronic obstructive pulmonary disease.GERD Asthma SURGICAL HISTORY : Cholecystectomy. Kyphoplasty.Hysterectomy.Appendectomy ENCOUNTER: Initial ACUITY: 1 day PAIN SCALE: 0/10 LOCATION: Bilateral chest TECHNIQUE: Volumetric scanning of the chest was performed using a pulmonary embolism protocol MIP images were re constructed. Using automated exposure control and adjustment of the mA and/or kV according to patien t size, radiation dose was kept as low as reasonably achievable to obtain optimal diagnostic quality images. FINDINGS: PULMONARY ARTERIES: No filling defects are seen in the pulmonary arteries through the segmental level. LUNGS: There are areas of consolidation or atelectasis of the posterior lower lungs bilaterally. PLEURAE: There is no pleural thickening or pleural effusion. MEDIASTINUM: There is enlargement of the esophagus throughout the chest. There are myelogram with its in the preca rinal and right hilar regions. MUSCULOSKELETAL: The patient is status post vertebroplasty in the past. Old healed rib fractures are seen bilaterally. MISCELLANEOUS: The visualized upper abdominal organs demonstrate no acute abnormality. There is a 2.2 cm hypodensity of the lateral segment of the left lobe of the liver. CONCLUSION: 1. No pulmonary embolus. 2. 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 3. Distention of the esophagus throughout the chest. 4. Nonspecific prominent lymph nodes in the precarinal and right hilar region. Luiz Shrestha MD on June 19, 2016 at 1:48 Board Certified Radiologist. This report was verified electronically.
[2016-06-19] MEDS ORDERED: ONDANSETRON HCL 4 MG/2 ML VIAL IVP PRN (02:30)
[2016-06-19] MEDS ORDERED: BISACODYL 10 MG SUPP PR PRN (02:30)
[2016-06-19] MEDS ORDERED: HYDROmorphone HCL 2 MG TAB PO PRN (02:30)
[2016-06-19] MEDS ORDERED: SODIUM CHLORIDE 0.9% FLUSH 5 ML FLUSH FLUSH PRN (02:30)
[2016-06-19] MEDS ORDERED: NALOXONE HCL 0.4 MG/ML AMP IV PRN (02:30)
[2016-06-19] MEDS ORDERED: Vancomycin Consult Pharmacy 1 EA XX SCH (02:30)
[2016-06-19] MEDS ORDERED: ACETAMINOPHEN 325 MG TAB PO PRN (02:30)
[2016-06-19] MEDS: HEPARIN SODIUM - SQ 10,000 UNITS/ML VIAL SQ SCH ×2 (04:58→14:30)
[2016-06-19] MEDS: SODIUM CHLOR 0.9% 1000 ML INJ 1,000 ML IV SCH ×2 (04:58→22:12)
[2016-06-19] MEDS: HYDROmorphone HCL 2 MG TAB PO PRN ×4 (04:59→22:08)
[2016-06-19] MEDS: SODIUM CHLORIDE 0.9% FLUSH 5 ML FLUSH FLUSH SCH ×2 (09:00→22:11)
[2016-06-19] MEDS: RESP: ALBUTEROL 2.5 MG/IPRATROPIUM 0.5 MG NEB (PRN) NEB (10:57)
--- NOTE | 2016-06-19 11:26 | MH ---
cc: RUDY SUBRAMANIAN DATE OF ADMISSION: 06/19/2016 DATE OF 1950 CHIEF COMPLAINT Shortness of breath HISTORY OF PRESENT ILLNESS This is a pleasant 66-year-old white female who was just discharged from the hospital with the same type of diagnosis of COPD exacerbation and acute respiratory distress. The patient does have acute on chronic respiratory failure and struggles with any type of increased activity. The patient states that her transfer back to the facility was a tough event for her and caused her to work of breathing to be increased. The patient was evaluated per EMS and placed on C-PAP during his transport back here to the hospital. She is currently coughing with extreme congestion, but states that she cannot cough up very much sputum. She has expiratory wheezes anteriorly and posteriorly and states that if she coughs, it breaks her ribs. The patient was noted to be febrile within the past 24 hours after going back to her home and complained of left-sided chest pain predominantly with movement and cough and breathing. Currently the patient is alert. She is oriented. She understands her illness, but is hopeful for a recovery from this exacerbation to increase her quality of life. Right now, she is unable to do anything much except for minimal activity and watching TV. Her appetite is good. She eats 100% of her food. She denies any headache, but she is positive for cough, congestion, and currently afebrile now. PAST MEDICAL HISTORY 1. Arthritis 2. Asthma 3. COPD 4. Anxiety 5. Heart murmur 6. Endometrial cancer 7. Cardiomyopathy 8. Cardiovascular disease 9. Hyperlipidemia 10. Possible congestive heart failure 11. Hard of hearing 12. Esophageal erosion 13. Gastroesophageal reflux disease 14. Graves disease 15. MS 16. Previous right patella and right tibial fractures 17. Neuropathies 18. Thyroid disease Some of this information is being gathered from the patient and gathered from the record due to her shortness of breath. PAST SURGICAL HISTORY 1. Cholecystectomy 2. Hysterectomy 3. Kyphoplasty 4. Bilateral lumpectomy 5. Tonsillectomy ALLERGIES MDRO multidrug resistant organisms, AMITRIPTYLINE, ASPIRIN, PENICILLIN AND SULFA. SOCIAL HISTORY The patient lives in a home with her own apartment. She has no alcohol use. 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 Denies any illicit drug use. ACTIVE AND REPORTED MEDICATIONS 1. Ativan 2. Prednisone 3. DuoNebs 4. [place] 5. Atorvastatin 6. Nitroglycerin sublingual 7. Guaifenesin 8. Carafate 9. Spiriva 10. Senna 11. Keppra 12. Gabapentin 13. Nebs 14. Amlodipine 15. Sertraline 16. Omeprazole 17. Metoprolol 18. Lactobacillus 19. Lisinopril 20. Levothyroxine 21. Mirtazapine REVIEW OF SYSTEMS A 12-point review was done, positives noted shortness of breath, wheezing, cough, anxiety predominantly, systolic murmur. Other systems are negative. PHYSICAL EXAMINATION VITAL SIGNS: Temperature is 96.5, pulse 99, respirations 20-32, blood pressure 133/60, high 153/84, O2 sat ranges between 92 and 96 with O2 per 4 liters. GENERAL: A short, morbidly obese well-developed white female who looks older than her stated age actively short of breath and coughing. SKIN: Pale, warm, and dry. HEENT: Atraumatic, normocephalic. YANIQUE at 2, no scleral icterus. No drainage. Mucous membranes are pale pink and moist. Trachea is midline. NECK: Very short. CARDIOVASCULAR: Regular rate and rhythm. Soft systolic murmur grade 2/6 left sternal border. No rubs or gallops. RESPIRATORY: Expiratory wheeze anteriorly and posteriorly with coarse breath sounds especially anteriorly. Respirations tachypneic, decreased breath sounds bilaterally in her mid to lower lobes. ABDOMEN: Round, obese, taut, nontender. Questionable distension with some tympany. Active bowel sounds in all four quads. MUSCULOSKELETAL: She can move her extremities with purpose. She has generalized weakness. She has no edema. Pulses are intact. Equal warehouse forklift operator. NEUROLOGIC: She is alert, awake, slightly anxious over current condition. Speech is normal, a fairly good historian. PSYCHIATRIC: Insight and judgment is normal. DIAGNOSTIC DATA WBC count 16.9, RBC 3.81, hemoglobin 10.5, hematocrit 33.3, platelet count 296, neutrophil percentage auto 75.3, monocytes 10. Chemistry sodium 142, potassium 3.9. This was done on 06/18, chloride 107, carbon dioxide 23.3, amnion gap 12, BUN 41, creatinine 1.46, GFR 36, random glucose 236, albumin 3.3. Troponins are less than 0.02. Urine is yellow clear, pH is 5.5, specific gravity 1.020, protein is 30, negative for glucose, bilirubin, ketones, occult blood, nitrites and leukocyte esterase. There is a culture for C&S to be performed on this urine. IMAGING STUDIES Chest x-ray shows no acute cardiopulmonary disease and CT angiography shows no pulmonary embolus, dense consolidations in the posterior medial lower lobes, bilateral distension of the esophagus throughout the chest, nonspecific lymph nodes, prominent lymph nodes in her precarinal and right hilar region. ASSESSMENT AND PLAN 1. Acute on chronic respiratory failure 2. COPD exacerbation 3. Lactic acid sepsis 4. Acute kidney injury 5. Pneumonia 6. Possible urinary tract infection Our plan is to admit inpatient, monitor her vital signs q.4, place the patient on machine specialist, heart healthy diet, ADA. The patient will be on DVT prophylaxis with heparin. Pain management, DuoNebs. We will reconcile her home medicines. DuoNebs will be q4 around the clock instead of p.r.n., but we will increase her DuoNebs to q4 [id number], order labs for in the morning. Urine culture is pending. Patient has been placed on Aztreonam antibiotic. The patient got one dose of Vanco on admission to the ER, as well as DuoNebs, Tylenol suppository and morphine. The patient will have IV access maintained at all sounds. Currently the patient is full code, full aggressive care. Initial discussion on admission for patient's wishes were initiated. The patient is aware of her current medical dilemma with her COPD and multiple admissions. She is worried at this time about possibly needing the ventilator in the future. She stated two different times that this was not what she wanted she has watched family members go through some of the same things and states that that is not what she wants at the end of her life if she continues to worsen. This information will be discussed with Dr. Subramanian. We will possibly be looking at palliative care as an early consult to educate and support this patient and her daughter and follow the patient's wishes. Currently the patient is going to remain full aggressive care for right now until Dr. Subramanian sees her. Dictated by WILLIAM Villagran MD AMMON Echevarria/YEE /9:25 AM /11:22 AM
[2016-06-19] MEDS: levETIRAcetam 500 MG TAB PO SCH ×2 (12:00→22:07)
[2016-06-19] MEDS: ATORVASTATIN 10 MG TAB PO SCH (12:00)
[2016-06-19] MEDS ORDERED: VANCOMYCIN 1,000 MG/NS 250 ML IV ONE ×2 (12:00)
[2016-06-19] MEDS: RESP: BUDESONIDE 0.5 MG/2 ML NEB NEB SCH ×2 (12:00→20:33)
--- NOTE | 2016-06-19 12:07 | HHI.HP ---
HPI Service [facility] Primary Care Physician Brandon Hernandez M.D. Admission Diagnosis PNA/UTI/Sepsis. 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 POSITIVE - 07/22/2015, 05/13/2016 MRSA sputum 06/2015 Physical Exam Vital Signs Vital Signs Date Time Temp Pulse Resp B/P Pulse Ox O2 Delivery O2 Flow Rate FiO2 06/19/16 08:00 96.5 99 20 133/60 96 06/19/16 06:35 96.6 90 20 125/60 92 06/19/16 02:13 93 20 153/84 95 Nasal Cannula 06/19/16 01:00 94 Nasal Cannula 4.00 06/18/16 23:41 96 32 129/64 100 CPAP 06/18/16 22:35 20 100 CPAP 06/18/16 22:35 100 CPAP 06/18/16 22:23 102 24 93 CPAP 06/18/16 22:21 99 24 119/64 93 06/18/16 22:10 96 100 06/18/16 22:10 96 100 Physical Exam GENERAL: This is a well-nourished, well-developed patient, in no apparent distress. SKIN: No rashes, ecchymoses or lesions. Cool and dry. HEAD: Atraumatic. Normocephalic. No temporal or scalp tenderness. EYES: Pupils equal round and reactive. Extraocular motions intact. No scleral icterus. No injection or drainage. ENT: Nose without bleeding, purulent drainage or septal hematoma. Throat without erythema, tonsillar hypertrophy or exudate. Uvula midline. Airway patent. NECK: Trachea midline. No JVD or lymphadenopathy. Supple, nontender, no meningeal signs. CARDIOVASCULAR: Regular rate and rhythm without murmurs, gallops, or rubs. RESPIRATORY: Clear to auscultation. Breath sounds equal bilaterally. No wheezes , rales, or rhonchi. GASTROINTESTINAL: Abdomen soft, non-tender, nondistended. No hepato-splenomegaly , or palpable masses. No guarding. MUSCULOSKELETAL: Extremities without clubbing, cyanosis, or edema. No joint tenderness, effusion, or edema noted. No calf tenderness. Negative Homans sign bilaterally. NEUROLOGICAL: Awake and alert. Cranial nerves II through XII intact. Motor and sensory grossly within normal limits. Five out of 5 muscle strength in all muscle groups. Normal speech. Laboratory Laboratory Tests Test 06/18/16 06/18/16 06/18/16 06/19/16 22:30 22:35 23:00 04:30 Urine Color YELLOW Urine Turbidity CLEAR Urine pH 5.5 Urine Specific [place] 1.020 Urine Protein 30 Urine Glucose (UA) NEG Urine Ketones NEG Urine Occult Blood NEG Urine Nitrite NEG Urine Bilirubin NEG Urine Urobilinogen LESS THAN 2.0 Urine Leukocyte Esterase NEG Urine RBC 1 Urine WBC 1 Urine Squamous Epithelial <1 Cells Urine Bacteria RARE Urine Hyaline Casts 17 Urine Mucus FEW Microscopic Urinalysis Comment CATH-CULTURE IND White Blood Count 16.9 Red Blood Count 3.81 Hemoglobin 10.5 Hematocrit 33.3 Mean Corpuscular Volume 87.4 Mean Corpuscular Hemoglobin 27.6 Mean Corpuscular Hemoglobin 31.6 Concent Red Cell Distribution Width 18.2 Platelet Count 296 Mean Platelet Volume 9.4 Neutrophils (%) (Auto) 75.3 Lymphocytes (%) (Auto) 13.2 Monocytes (%) (Auto) 10.0 Eosinophils (%) (Auto) 0.9 Basophils (%) (Auto) 0.6 Neutrophils # (Auto) 12.7 Lymphocytes # (Auto) 2.2 Monocytes # (Auto) 1.7 Eosinophils # (Auto) 0.1 Basophils # (Auto) 0.1 CBC Comment DIFF FINAL Differential Comment Prothrombin Time 10.7 Prothromb Time International 1.0 Ratio Activated Partial 23.9 Thromboplast Time Sodium Level 142 Potassium Level 3.9 Chloride Level 107 Carbon Dioxide Level 23.3 Anion Gap 12 Blood Urea Nitrogen 41 Creatinine 1.46 Estimat Glomerular Filtration 36 Rate Random Glucose 236 Calcium Level 8.6 Phosphorus Level 4.3 Magnesium Level 1.9 Total Bilirubin 0.4 Aspartate Amino Transf 12 (AST/SGOT) Alanine Aminotransferase 29 (ALT/SGPT) Alkaline Phosphatase 89 Total Creatine Kinase 26 Troponin I LESS THAN 0.02 Total Protein 7.9 Albumin 3.3 Lactic Acid Level 2.8 2.4 Blood Gas Puncture Site LINE Blood Gas Patient Temperature 98.6 Venous Blood pH 7.35 Venous Blood Partial Pressure 39 CO2 Venous Blood Partial Pressure 44 O2 Venous Blood HCO3 21 Venous Blood Oxygen Saturation 71 Venous Blood Oxygen Content 10.4 Venous Blood Base Excess -3.4 Oxygen Delivery Device NPPV Blood Gas Ventilator Setting IPAP/10/EPAP5 Blood Gas Inspired Oxygen 100 Test 06/19/16 06/19/16 04:35 09:16 Troponin I LESS THAN 0.02 LESS THAN 0.02 Date/Time Procedure Status Source Growth 06/18/16 22:35 Aerobic Blood Culture - Preliminary Resulted Blood Peripheral NO GROWTH IN 1 DAY 06/18/16 22:35 Anaerobic Blood Culture - Preliminary Resulted Blood Peripheral NO GROWTH IN 1 DAY 06/18/16 22:30 Urine Culture Received Urine Catheterized Urine Pending Result Diagram: 06/18/16223406/[id number]/162234 Assessment and Plan Assessment and Plan Patient seen and examined please refer to admission H & P for details Advanced COPD, with exacerbation acute on chronic resp failure h/o MS possible aspiration pneumonia DNI consult pulm consult palliative care seech eval continue antibiotic, Methylprednisolone , duonebs resume home meds gentle i/v fluids ECHO 07/12 EF 55-60% monitor lactic acid levels and BMP in am discussed with patient/ daughter at bed side discussed with nursing staff discussed with Yin THOMAS Physician Certification 2 Midnight Certification Type: Admission for Inpatient Services Order for Inpatient Services The services are ordered in accordance with Medicare regulations or non- Medicare payer requirements, as applicable. In the case of services not specified as inpatient-only, they are appropriately provided as inpatient services in accordance with the 2-midnight benchmark. Estimated LOS (days): 3 days is the estimated time the patient will need to remain in the hospital, assuming treatment plan goals are met and no additional complications. Post-Hospital Plan: [facility] Rajni Beard MD Jun 19, 2016 12:07
[2016-06-19] MEDS: RESP: ALBUTEROL 2.5 MG/IPRATROPIUM 0.5 MG NEB (SCH) NEB ×3 (12:12→20:33)
[2016-06-19] MEDS: GABAPENTIN 100 MG CAP PO SCH ×2 (12:44→18:00)
[2016-06-19] MEDS: LORazepam 0.5 MG TAB PO PRN ×2 (12:44→22:19)
[2016-06-19] MEDS: ACETAMINOPHEN/HYDROcodone 325 MG/5 MG TAB PO SCH ×2 (12:44→18:00)
[2016-06-19] MEDS: AZTREONAM INJ 1,000 MG in SODIUM CHLORIDE 0.9% INJ 100 ML IV SCH (12:45)
[2016-06-19] MEDS: SENNOSIDES 8.6 MG TAB PO PRN (15:00)
--- NOTE | 2016-06-19 15:39 | PD.CONS ---
Consult Service Palliative Care Consult Requested By Dr. Chirag MD. Primary Care Physician Brandon Hernandez M.D. Reason for Consultation a. To assist with evaluation and management of symptoms including: shortness of breath, debility and back pain. b. To assist medical decision maker(s) with: better understanding of current medical conditions; weighing benefits/burdens of medical treatment options; making medical treatment decisions. . HPI History of Present Illness Mrs. Tejeda is a 66-year-old female with a medical history significant for COPD -oxygen dependent, multiple sclerosis and recent multiple hospitalizations. Patient presented to ED on 06/18/16 via EMS for evaluation of shortness of breath , cough and fever. The day prior to presenting to the ED, patient was discharged from an acute hospitalization from 06/12/16 06/17/16 secondary to COPD exacerbation. Patient is a long-term resident of [facility]. Upon EMS arrival to the [facility], patient was found in significant respiratory distress as evidenced by increased work of breathing. In route patient was placed on CPAP until arrival to ED. Patient to ride a febrile, tachypneic and was admitted for sepsis, suspected pneumonia. ED workup to include WBC 16.9, Hgb 10.5, platelet count 296. Sodium 142, potassium 3.9, BUN/creatinine 41/ 1.46. Lactic acid 2.8. Troponin less than 0.02. Albumin 3.3. Urine analysis negative for nitrates. Chest x-ray with no evidence of cardiopulmonary disease. CTA of chest 06/19/16 negative for pulmonary embolus, but revealed dense consolidations in the medial lower lungs bilaterally and nonspecific prominent lymph nodes in the precarinal and right hilar region. Blood and urine cultures sent, no growth in one day thus far. Patient seen in her room, she was laying in bed in moderate to severe distress secondary to shortness of breath. Verbal but not always able to communicate secondary to shortness of breath, limited speech to 2-3 words at a time. Episodes of severe coughing spells with oxygen desaturation. Endorsing severe chronic back pain to coronary to multiple spinal fractures, reporting nonproductive cough. Denies nausea vomiting or diarrhea. Patient reports that cough intensifies her back pain and that cough is sometimes accompanied by chest pain. Chronic back pain reduce but not relieved by pain medication. Patient reports that she has been taking morphine and Dilaudid with only moderate efficacy. Review of prior hospitalizations, 2 acute hospitalization thus far this year secondary to COPD exacerbation, hypoxemia, respiratory distress and sepsis. 2 acute hospitalizations in 2016 secondary to pneumonia and respiratory distress, and 4 acute hospitalizations in 2015 secondary to MS exacerbation, weakness, pancreatitis and pneumonia/respiratory distress. Patient reports that she has been residing at [facility] since June 2015 secondary to progressive debility and increased need for assistance with ADLs. Patient reports currently being bed to chair bound secondary to profound dyspnea with minimal exertion and physical deconditioning. Patient reports that she developed bilateral foot drop secondary to limited ambulation. Patient mainly uses a wheelchair. Review with patient events leading to these hospitalization, progression of disease within the last 12 months to include several acute hospitalizations and profound physical deconditioning. Reviewed COPD Progressive/terminal condition. Patient is a former nurse verbalize good understanding of her poor prognosis for an improved quality of life. Reviewed CPR, intubation and mechanical ventilation in the setting of her progressive disease COPD/MS. patient verbalize that she has had many friends dying in while on a ventilator machine that she is aware that in the setting of an acute cardiopulmonary event , the likelihood of her surviving it are very poor. Patient electing no code, DNR/DNI, giving her progressive condition and worsening clinical status. Patient reports that she had a conversation this morning where her daughter regarding goals of care she will like for palliative care to arrange a meeting for further discussion. Introduced hospice philosophy and benefits, reviewed the future role of hospice should her clinical condition continues to worsen/ or she decides to transition to comfort directed care. Patient appreciative of this palliative care visit. Ongoing emotional support and active listening provided. Telephone call to patient's daughter Renay, aurelia message on voicemail. daughter returned telephone call. Family meeting scheduled for tomorrow 06/20/16 at 17:00. . Function/Cognitive Trajectory Profound functional decline within the last 12 months. Patient residing independently prior to July 2015. Patient has [facility] since June 2015 secondary to progressive debility and increased need for assistance with ADLs. Patient reports currently being bed to chair bound secondary to profound dyspnea with minimal exertion and physical deconditioning. Patient reports that she developed bilateral foot drop secondary to limited ambulation. Patient mainly uses a wheelchair. Requires assistance 2 people for transfers out of bed. No cognitive decline reported. . Review of Systems Constitutional: COMPLAINS OF: Fatigue, Fever, Change in appetite, Pain, Generalized weakness Endocrine: DENIES: Heat/cold intolerance Eyes: COMPLAINS OF: Vision loss (legally blind) Ears, nose, mouth, throat: DENIES: Hearing loss, Nasal discharge, Throat pain Respiratory: COMPLAINS OF: Cough, Wheezing, Shortness of breath Cardiovascular: COMPLAINS OF: Chest pain, Dyspnea on Exertion, Orthopnea Gastrointestinal: DENIES: Abdominal pain, Constipation, Diarrhea, Nausea, Vomiting Genitourinary: DENIES: Abnormal vaginal bleeding Musculoskeletal: COMPLAINS OF: Back pain, Decreased range of motion Integumentary: DENIES: Pruritus, Rash Hematologic/Lymphatics: COMPLAINS OF: Bruising Immunologic/Allergic: DENIES: Eczema Neurologic: COMPLAINS OF: Abnormal gait Psychiatric: COMPLAINS OF: Anxiety Past Family Social History Coded Allergies: Amitriptyline (Verified Allergy, Severe, SWELLING, 06/18/16) Penicillin (Verified Allergy, Severe, Anaphylaxis, 06/18/16) Sulfa (Verified Allergy, Severe, Anaphylaxis, 06/18/16) Aspirin (Verified Allergy, Intermediate, Rash, 06/18/16) *MDRO Multi-Drug Resistant Organism (Verified Adverse Reaction, Unknown, ) MRSA PCR Screen POSITIVE - 07/22/2015, 05/13/2016 MRSA sputum 06/2015 Past Medical History COPD, oxygen dependent. Multiple sclerosis Hypertension Seizures History of gastritis Bueno's esophagitis Cardiomyopathy Carotid vascular disease Hyperlipidemia Esophageal erosion GERD Peripheral neuropathy History of endometrial cancer Degenerative disc disease . Past Surgical History Cholecystectomy Hysterectomy Kyphoplasty Bilateral lumpectomy Tonsillectomy . Reported Medications Ativan 0.5mg PRN Prednisone 10 mg by mouth daily DuoNeb as needed [place] 5/325 every 6 hours when necessary pain Atorvastatin 10 mg daily Carafate 1 g 3 times a day Keppra 500 mg twice a day Gabapentin 100 mg 3 times a day Sertraline 50mg at HS Omeprazole 20 mg daily Metoprolol 25 mg twice a day Lisinopril 5 mg by mouth daily Mirtazapine 15 mg at at bedtime Levothyroxine 25 mcg daily . Current Medications Medications (Trade) Dose Ordered Sig/Drew Route Start Time Stop Time Status Last Admin (NS 1000 ml Inj) 1,000 ml @ 100 mls/hr Q10H IV 06/19/16 02:26 06/19/16 04:58 (NS Flush) 2 ml UNSCH PRN FLUSH 06/19/16 02:30 (NS Flush) 2 ml BID FLUSH 06/19/16 09:00 (Tylenol) 650 mg Q4H PRN PO 06/19/16 02:30 (Zofran Inj) 4 mg Q6H PRN IVP 06/19/16 02:30 (Dulcolax Supp) 10 mg DAILY PRN NJ 06/19/16 02:30 (Senokot) 17.2 mg Q12H PRN PO 06/19/16 02:30 (Heparin Inj) 5,000 units Q12H SQ 06/19/16 02:30 06/19/16 04:58 (Dilaudid) 1 mg Q4H PRN PO 06/19/16 02:30 (Dilaudid) 2 mg Q4H PRN PO 06/19/16 02:30 06/19/16 08:25 Naloxone HCl 0.4 mg 0.4 mg UNSCH PRN IV 06/19/16 02:30 Pharmacy Profile Note 0 ml @ 0 mls/hr UNSCH XX 06/19/16 02:30 Aztreonam 1000 mg/ Sodium Chloride 100 ml @ 200 mls/hr Q12H IV 06/19/16 12:00 06/19/16 12:45 (Vancomycin Inj/ NS 250 ml Inj) 250 ml @ 250 mls/hr Q24H IV 06/19/16 23:00 Miscellaneous Information SPECIFIC LAB TO BE CELESTE... ONCE ONCE XX 06/21/16 22:45 06/21/16 22:46 (Norvasc) 10 mg DAILY PO 06/19/16 12:00 06/19/16 12:52 (Lipitor) 10 mg DAILY PO 06/19/16 12:00 (Neurontin) 100 mg TID PO 06/19/16 13:00 06/19/16 12:44 ([place] 5-325 Mg) 1 tab Q6HR PO 06/19/16 12:00 06/19/16 12:44 (Lactinex) 1 tab BID PO 06/19/16 21:00 (Keppra) 500 mg BID PO 06/19/16 12:00 (Synthroid) 25 mcg DAILY@06 PO 06/20/16 06:00 (Synthroid) 200 mcg DAILY@06 PO 06/20/16 06:00 (Ativan) 0.5 mg TID PRN PO 06/19/16 12:00 06/19/16 12:44 (Remeron) 15 mg HS PO 06/19/16 21:00 Family History Father -brain cancer Sister -breast cancer Substance Use Tobacco: Former smoker. Quit in 2010. Alcohol: Denies. Prescription med abuse: Denies. Illicits: Denies. . Psychosocial History Patient is . 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 Resident of long-term facility since June 2015. Has 1 child, Renay Schulz. . Spiritual/Cultural Factors No jain affiliation. . Living Will: Never completed Health Care Surrogate: Never completed Durable Power of Manager Finance: Never completed Health Care Surrogate(s): [place] per [place] statute, [place] healthcare proxy decision falls to her daughter , Renay Schulz. . Documented care wishes: No living will has been completed. . Today's verbally stated goals: No code. Continue aggressive care short no code/allow time for clinical improvement. . Family/friends goals: No family available. . Ethical and Legal Issues No ethical legal issues have been identified. . Physical Exam Vital Signs Date Time Temp Pulse Resp B/P Pulse Ox O2 Delivery O2 Flow Rate FiO2 06/19/16 12:26 97.6 107 21 162/71 95 06/19/16 08:00 96.5 99 20 133/60 96 06/19/16 06:35 96.6 90 20 125/60 92 06/19/16 02:13 93 20 153/84 95 Nasal Cannula 06/19/16 01:00 94 Nasal Cannula 4.00 06/18/16 23:41 96 32 129/64 100 CPAP 06/18/16 22:35 20 100 CPAP 06/18/16 22:35 100 CPAP 06/18/16 22:23 102 24 93 CPAP 06/18/16 22:21 99 24 119/64 93 06/18/16 22:10 96 100 06/18/16 22:10 96 100 Exam CONSTITUTIONAL/GENERAL: This is an adequately nourished patient, in moderate to severe distress secondary to profound shortness of breath and cough spells. Looks older than stated age. TUBES/LINES/DRAINS: PIV's, Tapia catheter, SCDs. SKIN: No jaundice, rashes, or lesions. Ecchymoses on upper extremities. No wounds seen anteriorly. Skin temperature appropriate. Not diaphoretic. HEAD: Atraumatic. Normocephalic. EYES: Pupils equal and round and reactive. Extraocular motions intact. No scleral icterus. No injection or drainage. ENT: Hearing grossly normal. Legally blind. Nose without bleeding or purulent drainage. Dry lips. NECK: Trachea midline. Supple, nontender. CARDIOVASCULAR: Regular rate and rhythm. Peripheral pulses symmetric. RESPIRATORY/CHEST: Increased work of breathing , tachypneic at times. Cough spells with profound shortness of breath. Coarse breath sounds bilateral. Inspiratory wheezes during cough spells. GASTROINTESTINAL: Abdomen soft, round, large. Unable to appreciate hepato- splenomegaly secondary to body habitus. No guarding. Bowel sounds present. GENITOURINARY: Without palpable bladder distension. Tapia catheter in place. MUSCULOSKELETAL: Bilateral foot drop. NEUROLOGICAL: Awake and alert. Follows commands. Cognitively sharp. Moves all extremities. PSYCHIATRIC: Anxious at times secondary to respiratory condition. . Diagnostic Tests Laboratory Laboratory Tests Test 06/18/16 06/18/16 06/18/16 06/19/16 22:30 22:35 23:00 04:30 Urine Color YELLOW (YELLW/STRAW) Urine Turbidity CLEAR (CLEAR) Urine pH 5.5 (5.0-8.5) Urine Specific Finger 1.020 (1.002-1.035) Urine Protein 30 mg/dL (NEG-TRACE) Urine Glucose (UA) NEG mg/dL (NEG) Urine Ketones NEG mg/dL (NEG) Urine Occult Blood NEG (NEG) Urine Nitrite NEG (NEG) Urine Bilirubin NEG (NEG) Urine Urobilinogen LESS THAN 2.0 MG/DL (LESS THAN 2.0) Urine Leukocyte Esterase NEG (NEG) Urine RBC 1 /hpf (0-3) Urine WBC 1 /hpf (0-5) Urine Squamous Epithelial <1 /hpf (0-5) Cells Urine Bacteria RARE /hpf (NONE) Urine Hyaline Casts 17 /lpf (RARE) Urine Mucus FEW /lpf (OCC) Microscopic Urinalysis Comment CATH-CULTURE IND White Blood Count 16.9 TH/MM3 (4.0-11.0) Red Blood Count 3.81 MIL/MM3 (4.00-5.30) Hemoglobin 10.5 GM/DL (11.6-15.3) Hematocrit 33.3 % (35.0-46.0) Mean Corpuscular Volume 87.4 FL (80.0-100.0) Mean Corpuscular Hemoglobin 27.6 PG (27.0-34.0) Mean Corpuscular Hemoglobin 31.6 % Concent (32.0-36.0) Red Cell Distribution Width 18.2 % (11.6-17.2) Platelet Count 296 TH/MM3 (150-450) Mean Platelet Volume 9.4 FL (7.0-11.0) Neutrophils (%) (Auto) 75.3 % (16.0-70.0) Lymphocytes (%) (Auto) 13.2 % (9.0-44.0) Monocytes (%) (Auto) 10.0 % (0.0-8.0) Eosinophils (%) (Auto) 0.9 % (0.0-4.0) Basophils (%) (Auto) 0.6 % (0.0-2.0) Neutrophils # (Auto) 12.7 TH/MM3 (1.8-7.7) Lymphocytes # (Auto) 2.2 TH/MM3 (1.0-4.8) Monocytes # (Auto) 1.7 TH/MM3 (0-0.9) Eosinophils # (Auto) 0.1 TH/MM3 (0-0.4) Basophils # (Auto) 0.1 TH/MM3 (0-0.2) CBC Comment DIFF FINAL Differential Comment Prothrombin Time 10.7 SEC (9.8-11.6) Prothromb Time International 1.0 RATIO Ratio Activated Partial 23.9 SEC Thromboplast Time (24.3-30.1) Sodium Level 142 MEQ/L (136-145) Potassium Level 3.9 MEQ/L (3.5-5.1) Chloride Level 107 MEQ/L (98-107) Carbon Dioxide Level 23.3 MEQ/L (21.0-32.0) Anion Gap 12 MEQ/L (5-15) Blood Urea Nitrogen 41 MG/DL (7-18) Creatinine 1.46 MG/DL (0.50-1.00) Estimat Glomerular Filtration 36 ML/MIN (>89) Rate Random Glucose 236 MG/DL (74-106) Calcium Level 8.6 MG/DL (8.5-10.1) Phosphorus Level 4.3 MG/DL (2.5-4.9) Magnesium Level 1.9 MG/DL (1.5-2.5) Total Bilirubin 0.4 MG/DL (0.2-1.0) Aspartate Amino Transf 12 U/L (15-37) (AST/SGOT) Alanine Aminotransferase 29 U/L (10-53) (ALT/SGPT) Alkaline Phosphatase 89 U/L (45-117) Total Creatine Kinase 26 U/L (26-192) Troponin I LESS THAN 0.02 NG/ML (0.02-0.05) Total Protein 7.9 GM/DL (6.4-8.2) Albumin 3.3 GM/DL (3.4-5.0) Lactic Acid Level 2.8 mmol/L 2.4 mmol/L (0.4-2.0) (0.4-2.0) Blood Gas Puncture Site LINE Blood Gas Patient Temperature 98.6 Venous Blood pH 7.35 (7.360-7.400) Venous Blood Partial Pressure 39 mmHg (44-48) CO2 Venous Blood Partial Pressure 44 mmHg (35-40) O2 Venous Blood HCO3 21 mmol/L (22-26) Venous Blood Oxygen Saturation 71 % (70-76) Venous Blood Oxygen Content 10.4 Vol % (9.0-17.0) Venous Blood Base Excess -3.4 mmol/L (-2-2) Oxygen Delivery Device NPPV Blood Gas Ventilator Setting IPAP/10/EPAP5 Blood Gas Inspired Oxygen 100 % Test 06/19/16 06/19/16 04:35 09:16 Troponin I LESS THAN 0.02 LESS THAN 0.02 NG/ML NG/ML (0.02-0.05) (0.02-0.05) Result Diagram: 06/18/16223406/18/162234 Microbiology Microbiology Date/Time Procedure Status Source Growth 06/18/16 22:25 Aerobic Blood Culture - Preliminary Resulted Blood Peripheral NO GROWTH IN 1 DAY 06/18/16 22:25 Anaerobic Blood Culture - Preliminary Resulted Blood Peripheral NO GROWTH IN 1 DAY 06/18/16 22:30 Urine Culture - Preliminary Resulted Urine Catheterized Urine NO GROWTH IN 24 HOURS. 06/18/16 22:35 Aerobic Blood Culture - Preliminary Resulted Blood Peripheral NO GROWTH IN 1 DAY 06/18/16 22:35 Anaerobic Blood Culture - Preliminary Resulted Blood Peripheral NO GROWTH IN 1 DAY Imaging Last Imp[address] CT Angiography 06/19/16 0000 Signed Impressions: Service Date/Time: Sunday, June 19, 2016 01:23 - CONCLUSION: 1. No pulmonary embolus. 2. Dense consolidations in the community health nurse medial lower lungs bilaterally. 3. Distention of the esophagus throughout the chest. 4. Nonspecific prominent lymph nodes in the precarinal and right hilar region. Luiz Shrestha MD Chest X-Ray 06/18/162231 Signed Impressions: Service Date/Time: Saturday, June 18, 2016 22:44 - CONCLUSION: No evidence of acute cardiopulmonary disease. Luiz Oates MD Patient/Family Conference Present at Family Conference: No family available. Issues Discussed: * Palliative care role, purpose, approach * Additional medical, psychosocial, and spiritual history * Patients general health, functional status, and cognitive changes in the months leading up to the current hospitalization * Patient's understanding of the current medical problems * Patient's understanding of prognosis * Patients goals of care as best understood from advance directives and/or conversations and/or values * Information on living well and healthcare surrogate designation * Current medical treatment options and benefits/burdens of those options * Likely scenarios comparing ongoing aggressive care with a transition to comfort measures only * Questions answered to the best of my ability * Palliative care contact information provided * Hospice philosophy and benefits . Assessment and Plan Disease Oriented Problem List: (1) Acute exacerbation of chronic obstructive pulmonary disease (COPD) (2) Sepsis (3) PNA (pneumonia) (4) History of multiple sclerosis Symptom Scale: (1) Shortness of breath 0-10 Scale: 8 Comment: Profound shortness of breath at rest and on minimal exertion, secondary to COPD exacerbation and pneumonia. (2) Debility Comment: Progressive during the last 12 months. (3) Pain, chronic 0-10 Scale: Unable to quantify Comment: Secondary to multiple spinal fractures/orthopedic surgical interventions. Pertinent Non-Medical Issues Psychosocial: Divorce. Retired. Has 1 daughter. Spiritual: No jain affiliation. Legal: Living will completed. Ethical issues impacting care: No living will completed. . Important Contacts Daughter Renay Schulz [phone]. [phone]. . Prognosis Mrs. Tejeda to 66-year-old female with a medical history significant for COPD and multiple sclerosis. Patient has been disabled since 1994 secondary to multiple sclerosis. Residing at long-term facility since June 2015 secondary to progressive decline in physical deconditioning. Now it's a bed to chair bound and requires significant assistance with ADLs. Patient has had a total of 5 acute hospitalizations within the past 12 months secondary to COPD exacerbation, respiratory distress, sepsis and pneumonia. Patient's condition continues to worsen, secondary to profound physical deconditioning and progression of illness. Patient is a high risk for further decline, occasional complications and . Patient with a very poor prognosis for an increase quality of life or long-term survival. Patient likely appropriate for hospice services at this time should she elects comfort directed care. . Code Status: No Code Plan * CODE STATUS: No code. DNR/DNI. * MEDICAL DECISION-MAKING: Patient decisional at this time. As per [place] statute, [place] healthcare proxy decision falls to her daughter, Renay Schulz. Patient wishing to complete living will and healthcare surrogate designation during her family meeting scheduled for tomorrow to 06/20/16. * Patient verbalize her wish to completed living well and healthcare surrogate designation during this hospitalization. Palliative care to assess patient. * GOALS OF CARE: No code. Continue aggressive care short of no code/allow time for clinical improvement. 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 Reviewed COPD Progression and likely trajectory. Reviewed CPR, intubation and mechanical ventilation in the setting of her progressive disease COPD/MS. patient verbalize that she has had many friends dying in while on a ventilator machine that she is aware that in the setting of an acute cardiopulmonary event , the likelihood of her surviving is very poor. Patient electing no code, DNR/ DNI, giving her progressive condition and worsening clinical status. She requested that in the event of a cardiac or respiratory arrest, to allow her to peacefully and naturally. Patient reports that she had a conversation this morning with her daughter regarding goals of care, she will like for palliative care to arrange a meeting for further discussion. Introduced hospice philosophy and benefits, reviewed the future role of hospice should her clinical condition continues to worsen/or she decides to transition to comfort directed care. patient receptive to this conversation. Patient verbalized that her current clinical condition is not providing meaningful quality of life. * SYMPTOMS: == Profound shortness of breath, secondary to COPD progression/ exacerbation, pneumonia. On antibiotics. == Profound physical deconditioning, secondary to MS, frequent prolonged hospitalizations, and acute events. Likely to worsen. == Pain, chronic secondary to multiple spinal fractures/orthopedic surgical procedures. Remains on home regimen of [place] 5/325. * Palliative care contact information has been provided. * Palliative care to continue to follow-up for further clarifications of goals of care. . Time Spent Total Floor Time (mins): 92 (Total time to include review and summarization of medical records to include several prior acute hospitalizations, physical exam, conversation with patient regarding goals of care, and telephone call to patient 's daughter.) Face to Face Time (mins): 75 >50% Counseling/Coord of Care: Yes Thank you for the opportunity to participate in the care of Ms. Tejeda. Attestation To help prompt me to consider important information that might be impacting today's encounter and assessment, information from prior notes written by myself or my colleagues may have been "brought forward" into today's note. My signature on this note, however, is an attestation that I personally performed the exam, history, and/or decision-making noted today, and, unless otherwise indicated, the interactions with patient, family, and staff as well as the review of records all occurred today. I also attest that the listed assessment and stated plan reflect my best clinical judgment today based on the combination of historical information, prior notes, and today's exam/ interactions. When time spent is documented, it refers only to time spent today by the signer, or if indicated, combined time spent today by collaborating physician/nurse practitioner. Leilani Lama Jun 19, 2016 15:39
--- NOTE | 2016-06-19 16:43 | EKG ---
Date Performed: 06/18/2016 Time Performed: 22:29:52 PTAGE: 66 years EKG: Sinus rhythm NONSPECIFIC T-WAVE ABNORMALITY BORDERLINE ECG NO PREVIOUS TRACING DOCTOR: Ankur Cardoso Interpretating Date/Time 06/19/2016 16:42:39
--- NOTE | 2016-06-19 16:43 | EKG ---
Date Performed: 06/19/2016 Time Performed: 04:43:46 PTAGE: 66 years EKG: Sinus rhythm Since previous tracing, no significant change noted NORMAL ECG PREVIOUS TRACING : 06/12/2016 02.55 DOCTOR: Ankur Cardoso Interpretating Date/Time 06/19/2016 16:42:56
[2016-06-19] MEDS ORDERED: MIRTAZAPINE 15 MG TAB PO SCH (21:00)
[2016-06-19] MEDS: LACTOBACILLUS ACIDOPHILUS TAB PO SCH (22:09)
[2016-06-19] MEDS ORDERED: VANCOMYCIN 1,000 MG/NS 250 ML IV SCH ×2 (23:00)
[2016-06-20] VITALS (8 sets, daily range): BP systolic 109–168; BP diastolic 60–75; PULSE 85–117; RESP 20–22; TEMP 97.4–99.8; O2SAT 93–97
[2016-06-20] MEDS: ACETAMINOPHEN/HYDROcodone 325 MG/5 MG TAB PO SCH ×5 (01:00→20:42)
[2016-06-20] MEDS: AZTREONAM INJ 1,000 MG in SODIUM CHLORIDE 0.9% INJ 100 ML IV SCH ×2 (01:00→12:01)
[2016-06-20] MEDS: HEPARIN SODIUM - SQ 10,000 UNITS/ML VIAL SQ SCH ×2 (02:30→14:07)
[2016-06-20] MEDS: RESP: ALBUTEROL 2.5 MG/IPRATROPIUM 0.5 MG NEB (PRN) NEB (04:39)
[2016-06-20] MEDS: LEVOTHYROXINE SODIUM 25 MCG TAB PO SCH (06:15)
[2016-06-20] MEDS: LEVOTHYROXINE SODIUM 200 MCG TAB PO SCH (06:15)
[2016-06-20] MEDS: RESP: ALBUTEROL 2.5 MG/IPRATROPIUM 0.5 MG NEB (SCH) NEB ×4 (07:25→20:31)
[2016-06-20] MEDS: RESP: BUDESONIDE 0.5 MG/2 ML NEB NEB SCH ×2 (07:25→20:00)
[2016-06-20 07:35] LABS: AUTOMATED NEUTROPHIL # 6.3 TH/MM3 (1.8-7.7); BASOPHIL % 0.4 % (0.0-2.0); EOSINOPHIL # 0.3 TH/MM3 (0-0.4); EOSINOPHIL % 3.4 % (0.0-4.0); HEMATOCRIT 28.2 % (35.0-46.0); HEMO FLAGS DIFF FINAL; LYMPH % 14.5 % (9.0-44.0); LYMPHOCYTE # 1.3 TH/MM3 (1.0-4.8); MEAN CELL VOLUME 87.6 FL (80.0-100.0); MEAN CORPUSCULAR HEMOGLOBIN 27.9 PG (27.0-34.0); MEAN CORPUSCULAR HGB CONC 31.8 % (32.0-36.0); MONO % 11.7 % (0.0-8.0); PLATELET COUNT 209 TH/MM3 (150-450); RED BLOOD COUNT 3.22 MIL/MM3 (4.00-5.30); RED CELL DISTRIBUTION WIDTH 18.5 % (11.6-17.2)
[2016-06-20 08:03] LABS: BICARBONATE 23.9 MEQ/L (21.0-32.0); POTASSIUM 3.7 MEQ/L (3.5-5.1)
[2016-06-20] MEDS: SODIUM CHLOR 0.9% 1000 ML INJ 1,000 ML IV SCH (08:26)
[2016-06-20] MEDS: SODIUM CHLORIDE 0.9% FLUSH 5 ML FLUSH FLUSH SCH ×2 (09:00→20:47)
[2016-06-20] MEDS: GABAPENTIN 100 MG CAP PO SCH ×2 (09:20→12:00)
[2016-06-20] MEDS: LACTOBACILLUS ACIDOPHILUS TAB PO SCH (09:20)
[2016-06-20] MEDS: ATORVASTATIN 10 MG TAB PO SCH (09:20)
[2016-06-20] MEDS: levETIRAcetam 500 MG TAB PO SCH (09:20)
[2016-06-20] MEDS: HYDROmorphone HCL 2 MG TAB PO PRN ×2 (09:24→14:06)
--- NOTE | 2016-06-20 10:21 | HHI.PR ---
Subjective Subjective Remarks inc. cough, wheezing tachy no fever per RN, coughing with pills no cp Review of Systems Constitutional Constitutional Remarks 12 point ROS completed, negative except as noted above, unreliable Vitals/Results Intake & Output 06/19/16 06/19/16 06/20/16 15:00 23:00 07:00 Intake Total 840 ml 480 ml 1483 ml Output Total 900 ml 350 ml 700 ml Balance -60 ml 130 ml 783 ml Intake Oral 840 ml 480 ml IV Total 1483 ml Output Urine Total 900 ml 350 ml 700 ml # Bowel Movements 0 Vital Signs Vital Signs Date Time Temp Pulse Resp B/P Pulse Ox O2 Delivery O2 Flow Rate FiO2 06/20/16 07:30 97.7 100 22 168/72 97 06/20/16 07:27 94 Nasal Cannula 4.00 06/20/16 07:16 20 06/20/16 04:00 97.4 98 20 140/62 95 06/20/16 00:44 97.6 98 20 136/62 95 06/19/16 23:08 18 06/19/16 20:35 97 Nasal Cannula 4.00 06/19/16 20:00 97.3 102 20 138/59 96 06/19/16 16:25 96.6 105 21 148/63 96 06/19/16 12:26 97.6 107 21 162/71 95 CBC/BMP: 06/20/16 0715 06/20/16 0715 Lab Results Laboratory Tests Test 06/20/16 07:15 White Blood Count 9.0 TH/MM3 Red Blood Count 3.22 MIL/MM3 Hemoglobin 9.0 GM/DL Hematocrit 28.2 % Mean Corpuscular Volume 87.6 FL Mean Corpuscular Hemoglobin 27.9 PG Mean Corpuscular Hemoglobin 31.8 % Concent Red Cell Distribution Width 18.5 % Platelet Count 209 TH/MM3 Mean Platelet Volume 8.6 FL Neutrophils (%) (Auto) 70.0 % Lymphocytes (%) (Auto) 14.5 % Monocytes (%) (Auto) 11.7 % Eosinophils (%) (Auto) 3.4 % Basophils (%) (Auto) 0.4 % Neutrophils # (Auto) 6.3 TH/MM3 Lymphocytes # (Auto) 1.3 TH/MM3 Monocytes # (Auto) 1.0 TH/MM3 Eosinophils # (Auto) 0.3 TH/MM3 Basophils # (Auto) 0.0 TH/MM3 CBC Comment DIFF FINAL Differential Comment Sodium Level 141 MEQ/L Potassium Level 3.7 MEQ/L Chloride Level 108 MEQ/L Carbon Dioxide Level 23.9 MEQ/L Anion Gap 9 MEQ/L Blood Urea Nitrogen 21 MG/DL Creatinine 0.85 MG/DL Estimat Glomerular Filtration 67 ML/MIN Rate Random Glucose 101 MG/DL Calcium Level 8.9 MG/DL Physical Exam General General Appearance: Well Developed, Anxious, Obese Eyes Eye Exam: Pupils Equal, Pupils Reactive Ears & Nose Ears & Nose Exam: Nasal [place]uc[place] Throat Throat Exam: Oral Muc[place] & Moist Pulmonary Resp Exam: Rhonchi Resp Remarks exp. wheezes Cardiology CV Exam: Regular Gastrointestinal/Abdomen GI Exam: Soft, Non-Tender, Bowel Sounds Present, Non-Distended Genitourinary Exam: Clear Urine Remarks SWANN Musculoskeletal MS Exam: Joints Intact Integumentary Skin Exam: Warm, Dry Extremeties Extremities Exam: No Edema, Pedal Pulses Palpable Neurologic Neuro Exam: Alert, Awake, Oriented, Speech Clear, Moving All Extremities, No Focal Deficits Psychiatric Psych Exam: Appropriate Responses VTE Prophylaxis VTE Prophylaxis Device: SCDs VTE Prophylaxis Meds: Heparin Assessment/Plan Problem List: (1) Acute exacerbation of chronic obstructive pulmonary disease (COPD) (2) History of multiple sclerosis (3) PNA (pneumonia) (4) Sepsis (5) Shortness of breath (6) Acute bronchitis (7) HTN (hypertension) (8) Seizure disorder (9) Hypothyroidism (10) Acute renal disease Assessment/Plan admitted with acute on chronic resp. failure, COPD exacerbation, sepsis -continue with duonebs -empiric antibiotics, follow cultures, negative so far -add IV Solumedrol 40 mg IV q 6 -add Tessalon, Mucinex -Lactic acid in am -Continue IVF, dec. to 30hr ZULEYMA -dec. IVF -Renal fx improved HTN -Resume DANII/BB Depression -continue home meds Seizure disorder -continue Keppra DNR status continue home meds Heparin for DVT prophylaxis PT eval Labs in am condition guarded D/W RN D/W Dr. Beard D/W pt This patient was seen by myself and Dr. Beard, this note is written on her behalf. Problem Qualifiers (1) PNA (pneumonia): Qualified Code: J18.9 - Pneumonia due to infectious organism, unspecified laterality, unspecified part of lung (2) Sepsis: Qualified Code: A41.9 - Sepsis, due to unspecified organism (3) Acute bronchitis: Qualified Code: J20.9 - Acute bronchitis, unspecified organism (4) HTN (hypertension): Qualified Code: I10 - Essential hypertension (5) Hypothyroidism: Qualified Code: E03.9 - Hypothyroidism, unspecified type Laurence Tian Jun 20, 2016 10:21
[2016-06-20] MEDS ORDERED: methylPREDNISolone SOD SUCC 125 MG/2 ML VIAL IV PUSH ONE (12:00)
[2016-06-20] MEDS ORDERED: METOPROLOL TARTRATE 25 MG TAB PO SCH (12:00)
[2016-06-20] MEDS ORDERED: guaiFENesin E.R. 600 MG TAB PO SCH (12:00)
[2016-06-20] MEDS ORDERED: FUROSEMIDE 20 MG/2 ML VIAL IV PUSH ONE (12:15)
--- NOTE | 2016-06-20 12:23 | RADRPT ---
EXAM DATE/TIME: 06/20/2016 12:09 [facility] COMPARISON: CT PULMONARY ANGIOGRAM, June 19, 2016, 1:23. CHEST SINGLE AP, June 18, 2016, 22:44. INDICATIONS : Respiratory distress. MEDICAL HISTORY : Chronic obstructive pulmonary disease. Hypertension SURGICAL HISTORY : None. ENCOUNTER: Subsequent ACUITY: 2 days PAIN SCORE: 0/10 LOCATION: Bilateral chest FINDINGS: There are somewhat thickened areas of linear density in the lung bases relative to the prior chest x- ray but seen on CTs pulmonary angiogram. Consistent with areas of parenchymal consolidation or atelec tasis. CONCLUSION: Bibasilar areas of somewhat thickened indistinct density consistent with consolidation and/or associa louie atelectasis. Chepe Nicholas MD on June 20, 2016 at 12:20 Board Certified Radiologist. This report was verified electronically.
[2016-06-20] MEDS: SERTRALINE HCL 50 MG TAB PO SCH (12:25)
[2016-06-20] MEDS: LISINOPRIL 5 MG TAB PO SCH (12:25)
[2016-06-20] MEDS: SUCRALFATE 1 GM TAB PO SCH ×2 (12:26→12:51)
[2016-06-20] MEDS: VANCOMYCIN INJ 1,500 MG in SODIUM CHLORID 0.9% 500 ML INJ 500 ML IV SCH (14:06)
--- NOTE | 2016-06-20 15:07 | HHI.HCPN ---
Reason for visit a. To assist with evaluation and management of symptoms including: shortness of breath, debility and back pain. b. To assist medical decision maker(s) with: better understanding of current medical conditions; weighing benefits/burdens of medical treatment options; making medical treatment decisions. . Subjective/Interval History Patient afebrile, tachycardic with HR in the 110's. Hypertensive with BP in the 160's. On 4L O2 via NC. CXR today revealing bibasilar consolidation and/or atelectasis. Labs today WBC trending down to 9.0 from 16.9 two days earlier, hgb 9.0 and plt count 209. Na 141, K 3.7, Bun/creat 21/0.85. Patient previously on mechanical soft diet. Has been reevaluated by speech therapy today, failed swallow evaluation and is now NPO. Continues reporting non-productive cough, Mucinex and Tessalon pearls added today. Patient seen in her room. Reports feeling better than yesterday but continue endorsing significant shortness of breath with intermittent cough spells. Family meeting at bedside, patient's daughter Renay was updated on patient's hospital course and treatment plan. Reviewed events leading to these hospitalization, progression of disease within the last 12 months to include several acute hospitalizations and profound physical deconditioning. Discussed poor prognosis for an improved quality of life or long-term survival given her continue decline and progression of disease. Reviewed CPR, intubation and mechanical ventilation in the setting of her progressive disease COPD/MS. Patient electing DNR/DNI which is supported by her daughter. Patient wishing for noninvasive respiratory support with Bipap/Cpap if clinically indicated. Introduced hospice philosophy and benefits, reviewed the future role of hospice should her clinical condition continues to worsen/or she decides to transition to comfort directed care. Hospice information given to daughter at her request. . Family/friend interactions See interval note. . Advance Directives Living Will: Never completed Health Care Surrogate: Never completed Durable Power of Crm Solution Architect: Never completed Advance Directive Specifics Health Care Surrogate(s): As per [place] statute, [place] healthcare proxy decision falls to her daughter Renay. . Documented care wishes: No living will has been completed. . Significant change in goals: NO CODE. Continue current treatment plan. . Objective Vital Signs Date Time Temp Pulse Resp B/P Pulse Ox O2 Delivery O2 Flow Rate FiO2 06/20/16 13:00 20 06/20/16 12:00 98.2 117 22 164/73 96 06/20/16 10:24 20 06/20/16 07:30 97.7 100 22 168/72 97 06/20/16 07:27 94 Nasal Cannula 4.00 06/20/16 04:00 97.4 98 20 140/62 95 06/20/16 00:44 97.6 98 20 136/62 95 06/19/16 20:35 97 Nasal Cannula 4.00 06/19/16 20:00 97.3 102 20 138/59 96 06/19/16 16:25 96.6 105 21 148/63 96 Intake & Output 06/20/16 06/20/16 07:00 19:00 Intake Total 1963 ml 360 ml Output Total 1050 ml 800 ml Balance 913 ml -440 ml Intake Oral 480 ml 360 ml IV Total 1483 ml Output Urine Total 1050 ml 800 ml # Bowel Movements 0 Physical Exam CONSTITUTIONAL/GENERAL: This is an adequately nourished patient, in moderate distress secondary to shortness of breath and cough spells. Looks older than stated age. TUBES/LINES/DRAINS: PIV's, Tapia catheter, SCDs. SKIN: No jaundice, rashes, or lesions. Ecchymoses on upper extremities. No wounds seen anteriorly. Skin temperature appropriate. Not diaphoretic. HEAD: Atraumatic. Normocephalic. EYES: Pupils equal and round and reactive. Extraocular motions intact. No scleral icterus. No injection or drainage. ENT: Hearing grossly normal. Legally blind. Nose without bleeding or purulent drainage. Dry lips. NECK: Trachea midline. Supple, nontender. CARDIOVASCULAR: Regular rate and rhythm. Peripheral pulses symmetric. RESPIRATORY/CHEST: Increased work of breathing , tachypneic at times. Cough spells with profound shortness of breath. Coarse breath sounds bilateral. GASTROINTESTINAL: Abdomen soft, round, large. Unable to appreciate hepato- splenomegaly secondary to body habitus. No guarding. Bowel sounds present. GENITOURINARY: Without palpable bladder distension. Tapia catheter in place. MUSCULOSKELETAL: Bilateral foot drop. NEUROLOGICAL: Awake and alert. Follows commands. Cognitively sharp. Moves all extremities. PSYCHIATRIC: . Diagnostic Tests Laboratory Laboratory Tests Test 2/2006/18/16 06/18/16 06/19/16 22:30 22:35 23:00 04:30 Urine Color YELLOW (YELLW/STRAW) Urine Turbidity CLEAR (CLEAR) Urine pH 5.5 (5.0-8.5) Urine Specific [place] 1.020 (1.002-1.035) Urine Protein 30 mg/dL (NEG-TRACE) Urine Glucose (UA) NEG mg/dL (NEG) Urine Ketones NEG mg/dL (NEG) Urine Occult Blood NEG (NEG) Urine Nitrite NEG (NEG) Urine Bilirubin NEG (NEG) Urine Urobilinogen LESS THAN 2.0 MG/DL (LESS THAN 2.0) Urine Leukocyte Esterase NEG (NEG) Urine RBC 1 /hpf (0-3) Urine WBC 1 /hpf (0-5) Urine Squamous Epithelial <1 /hpf (0-5) Cells Urine Bacteria RARE /hpf (NONE) Urine Hyaline Casts 17 /lpf (RARE) Urine Mucus FEW /lpf (OCC) Microscopic Urinalysis Comment CATH-CULTURE IND White Blood Count 16.9 TH/MM3 (4.0-11.0) Red Blood Count 3.81 MIL/MM3 (4.00-5.30) Hemoglobin 10.5 GM/DL (11.6-15.3) Hematocrit 33.3 % (35.0-46.0) Mean Corpuscular Volume 87.4 FL (80.0-100.0) Mean Corpuscular Hemoglobin 27.6 PG (27.0-34.0) Mean Corpuscular Hemoglobin 31.6 % Concent (32.0-36.0) Red Cell Distribution Width 18.2 % (11.6-17.2) Platelet Count 296 TH/MM3 (150-450) Mean Platelet Volume 9.4 FL (7.0-11.0) Neutrophils (%) (Auto) 75.3 % (16.0-70.0) Lymphocytes (%) (Auto) 13.2 % (9.0-44.0) Monocytes (%) (Auto) 10.0 % (0.0-8.0) Eosinophils (%) (Auto) 0.9 % (0.0-4.0) Basophils (%) (Auto) 0.6 % (0.0-2.0) Neutrophils # (Auto) 12.7 TH/MM3 (1.8-7.7) Lymphocytes # (Auto) 2.2 TH/MM3 (1.0-4.8) Monocytes # (Auto) 1.7 TH/MM3 (0-0.9) Eosinophils # (Auto) 0.1 TH/MM3 (0-0.4) Basophils # (Auto) 0.1 TH/MM3 (0-0.2) CBC Comment DIFF FINAL Differential Comment Prothrombin Time 10.7 SEC (9.8-11.6) Prothromb Time International 1.0 RATIO Ratio Activated Partial 23.9 SEC Thromboplast Time (24.3-30.1) Sodium Level 142 MEQ/L (136-145) Potassium Level 3.9 MEQ/L (3.5-5.1) Chloride Level 107 MEQ/L (98-107) Carbon Dioxide Level 23.3 MEQ/L (21.0-32.0) Anion Gap 12 MEQ/L (5-15) Blood Urea Nitrogen 41 MG/DL (7-18) Creatinine 1.46 MG/DL (0.50-1.00) Estimat Glomerular Filtration 36 ML/MIN (>89) Rate Random Glucose 236 MG/DL (74-106) Calcium Level 8.6 MG/DL (8.5-10.1) Phosphorus Level 4.3 MG/DL (2.5-4.9) Magnesium Level 1.9 MG/DL (1.5-2.5) Total Bilirubin 0.4 MG/DL (0.2-1.0) Aspartate Amino Transf 12 U/L (15-37) (AST/SGOT) Alanine Aminotransferase 29 U/L (10-53) (ALT/SGPT) Alkaline Phosphatase 89 U/L (45-117) Total Creatine Kinase 26 U/L (26-192) Troponin I LESS THAN 0.02 NG/ML (0.02-0.05) Total Protein 7.9 GM/DL (6.4-8.2) Albumin 3.3 GM/DL (3.4-5.0) Lactic Acid Level 2.8 mmol/L 2.4 mmol/L (0.4-2.0) (0.4-2.0) Blood Gas Puncture Site LINE Blood Gas Patient Temperature 98.6 Venous Blood pH 7.35 (7.360-7.400) Venous Blood Partial Pressure 39 mmHg (44-48) CO2 Venous Blood Partial Pressure 44 mmHg (35-40) O2 Venous Blood HCO3 21 mmol/L (22-26) Venous Blood Oxygen Saturation 71 % (70-76) Venous Blood Oxygen Content 10.4 Vol % (9.0-17.0) Venous Blood Base Excess -3.4 mmol/L (-2-2) Oxygen Delivery Device NPPV Blood Gas Ventilator Setting IPAP/10/EPAP5 Blood Gas Inspired Oxygen 100 % Test 06/19/16 06/19/16 06/20/16 04:35 09:16 07:15 Troponin I LESS THAN 0.02 LESS THAN 0.02 NG/ML NG/ML (0.02-0.05) (0.02-0.05) White Blood Count 9.0 TH/MM3 (4.0-11.0) Red Blood Count 3.22 MIL/MM3 (4.00-5.30) Hemoglobin 9.0 GM/DL (11.6-15.3) Hematocrit 28.2 % (35.0-46.0) Mean Corpuscular Volume 87.6 FL (80.0-100.0) Mean Corpuscular Hemoglobin 27.9 PG (27.0-34.0) Mean Corpuscular Hemoglobin 31.8 % Concent (32.0-36.0) Red Cell Distribution Width 18.5 % (11.6-17.2) Platelet Count 209 TH/MM3 (150-450) Mean Platelet Volume 8.6 FL (7.0-11.0) Neutrophils (%) (Auto) 70.0 % (16.0-70.0) Lymphocytes (%) (Auto) 14.5 % (9.0-44.0) Monocytes (%) (Auto) 11.7 % (0.0-8.0) Eosinophils (%) (Auto) 3.4 % (0.0-4.0) Basophils (%) (Auto) 0.4 % (0.0-2.0) Neutrophils # (Auto) 6.3 TH/MM3 (1.8-7.7) Lymphocytes # (Auto) 1.3 TH/MM3 (1.0-4.8) Monocytes # (Auto) 1.0 TH/MM3 (0-0.9) Eosinophils # (Auto) 0.3 TH/MM3 (0-0.4) Basophils # (Auto) 0.0 TH/MM3 (0-0.2) CBC Comment DIFF FINAL Differential Comment Sodium Level 141 MEQ/L (136-145) Potassium Level 3.7 MEQ/L (3.5-5.1) Chloride Level 108 MEQ/L (98-107) Carbon Dioxide Level 23.9 MEQ/L (21.0-32.0) Anion Gap 9 MEQ/L (5-15) Blood Urea Nitrogen 21 MG/DL (7-18) Creatinine 0.85 MG/DL (0.50-1.00) Estimat Glomerular Filtration 67 ML/MIN (>89) Rate Random Glucose 101 MG/DL (74-106) Calcium Level 8.9 MG/DL (8.5-10.1) Result Diagram: 06/20/16 0715 06/20/16 0715 Microbiology Microbiology Date/Time Procedure Status Source Growth 06/18/16 22:25 Aerobic Blood Culture - Preliminary Resulted Blood Peripheral NO GROWTH IN 2 DAYS 06/18/16 22:25 Anaerobic Blood Culture - Preliminary Resulted Blood Peripheral NO GROWTH IN 2 DAYS 06/18/16 22:30 Urine Culture - Final Complete Urine Catheterized Urine NO GROWTH IN 48 HOURS. 06/18/16 22:35 Aerobic Blood Culture - Preliminary Resulted Blood Peripheral NO GROWTH IN 2 DAYS 06/18/16 22:35 Anaerobic Blood Culture - Preliminary Resulted Blood Peripheral NO GROWTH IN 2 DAYS Imaging Last Impressions Chest X-Ray 06/20/16 0000 Signed Impressions: Service Date/Time: Monday, June 20, 2016 12:09 - CONCLUSION: Bibasilar areas of somewhat thickened indistinct density consistent with consolidation and/or associated atelectasis. Chepe Nicholas MD CT Angiography 06/19/16 0000 Signed Impressions: Service Date/Time: Sunday, June 19, 2016 01:23 - CONCLUSION: 1. No pulmonary embolus. 2. Dense consolidations in the records analyst medial lower lungs bilaterally. 3. Distention of the esophagus throughout the chest. 4. Nonspecific prominent lymph nodes in the precarinal and right hilar region. Luiz Shrestha MD Assessment and Plan Disease Oriented Problem List: (1) Acute exacerbation of chronic obstructive pulmonary disease (COPD) (2) Sepsis (3) PNA (pneumonia) (4) History of multiple sclerosis Symptom Scale: (1) Shortness of breath 0-10 Scale: 8 Comment: Profound shortness of breath at rest and on minimal exertion, secondary to COPD exacerbation and pneumonia. (2) Debility Comment: Progressive during the last 12 months. (3) Pain, chronic 0-10 Scale: Unable to quantify Comment: Secondary to multiple spinal fractures/orthopedic surgical interventions. Pertinent Non-Medical Issues Psychosocial: Divorce. Retired. Has 1 daughter. Spiritual: No sabianism affiliation. Legal: Living will completed. Ethical issues impacting care: No living will completed. . Important Contacts Daughter Renay Schulz [phone]. [phone]. . Prognosis Mrs. Tejeda to 66-year-old female with a medical history significant for COPD and multiple sclerosis. Patient has been disabled since 1994 secondary to multiple sclerosis. Residing at long-term facility since June 2015 secondary to progressive decline in physical deconditioning. Now it's a bed to chair bound and requires significant assistance with ADLs. Patient has had a total of 5 acute hospitalizations within the past 12 months secondary to COPD exacerbation, respiratory distress, sepsis and pneumonia. Patient's condition continues to worsen, secondary to profound physical deconditioning and progression of illness. Patient is a high risk for further decline, occasional complications and . Patient with a very poor prognosis for an increase quality of life or long-term survival. Patient likely appropriate for hospice services at this time should she elects comfort directed care. . Code Status: No Code Plan * CODE STATUS: No code. DNR/DNI. Patient OK with noninvasive respiratory support such as BiPAP if needed. * MEDICAL DECISION-MAKING: Patient decisional at this time. As per [place] statute, [place] healthcare proxy decision falls to her daughter, Renay Schulz. * Patient verbalize her wish to completed living well and healthcare surrogate designation during this hospitalization. Palliative care to assess patient. * GOALS OF CARE: 06/20/16 -Continue aggressive care short of no code/allow time for clinical improvement. Family meeting at bedside, patient's daughter Renay was updated on patient's hospital course and treatment plan. Reviewed events leading to these hospitalization, progression of disease within the last 12 months to include several acute hospitalizations and profound physical deconditioning. Discussed poor prognosis for an improved quality of life or long -term survival given her continue decline and progression of disease. Reviewed CPR, intubation and mechanical ventilation in the setting of her progressive disease COPD/MS. Patient electing DNR/DNI which is supported by her daughter. Patient wishing for noninvasive respiratory support with Bipap/Cpap if clinically indicated. * Hospice: Introduced hospice philosophy and benefits, reviewed the future role of hospice should her clinical condition continues to worsen/or she decides to transition to comfort directed care. Hospice information given to daughter at her request. If patient and family wish to pursue comfort-directed care, patient eligible for hospice benefits under [facility] guidelines for COPD as evidenced by O2 dependent, disabling dyspnea at rest, more than 3 acute hospitalizations for COPD in the past year, evidence of progressive pulmonary disease and Karnofsky <50/PPS of 30%. * SYMPTOMS: == Profound shortness of breath, secondary to COPD progression/ exacerbation, pneumonia. On antibiotics. == Profound physical deconditioning, secondary to MS, frequent prolonged hospitalizations, and acute events. Likely to worsen. == Pain, chronic secondary to multiple spinal fractures/orthopedic surgical procedures. Remains on home regimen of [place] 5/325. * Palliative care contact information has been provided. * Palliative care to continue to follow-up for further clarifications of goals of care. . Time Spent Total Floor Time (mins): 46 (Total time to include review of medical records, physical exam, and GOC conversation with patient and family. ) Face to Face Time (mins): 35 >50% Counseling/Coord of Care: Yes Attestation To help prompt me to consider important information that might be impacting today's encounter and assessment, information from prior notes written by myself or my colleagues may have been "brought forward" into today's note. My signature on this note, however, is an attestation that I personally performed the exam, history, and/or decision-making noted today, and, unless otherwise indicated, the interactions with patient, family, and staff as well as the review of records all occurred today. I also attest that the listed assessment and stated plan reflect my best clinical judgment today based on the combination of historical information, prior notes, and today's exam/ interactions. When time spent is documented, it refers only to time spent today by the signer, or if indicated, combined time spent today by collaborating physician/nurse practitioner. Leilani Lama Jun 20, 2016 15:07
[2016-06-20] MEDS: PANTOPRAZOLE SODIUM 40 MG VIAL IV PUSH SCH (17:56)
[2016-06-20] MEDS: HYDROmorphone HCL PF 1 MG/ML VIAL IV PRN (18:39)
[2016-06-20] MEDS: methylPREDNISolone SOD SUCC 40 MG/1 ML VIAL IV PUSH SCH (20:43)
[2016-06-20] MEDS: levETIRAcetam INJ 500 MG in SODIUM CHLORIDE 0.9% INJ 100 ML IV SCH (20:44)
--- NOTE | 2016-06-20 20:48 | MB ---
cc: RAHEEM SHELDON MD DATE OF CONSULTATION: 06/20/2016 REQUESTING PHYSICIAN: Dr. Rajni Beard REASON FOR CONSULTATION: Pulmonary management. HISTORY OF PRESENT ILLNESS: Ms. Tejeda is a 66 year-old female who is bedbound because of her multiple sclerosis. She resides at a living facility. She has a history of COPD, multiple sclerosis. She was brought to the hospital with worsening of her shortness of breath. She was hypoxic. She was put on CPAP during the transport. Currently she has weaned down to nasal cannula. She has cough and congestion, not able to bring up phlegm. Denies any fever or chills. No night sweats. PAST MEDICAL HISTORY Significant for 1. History of COPD. 2. Multiple sclerosis. 3. Endometrial cancer. 4. Gastroesophageal reflux disease 5. Graves disease. 6. History of neuropathy 7. History of cholecystectomy. 8. Hysterectomy. 9. Tonsillectomy 10. Kyphoplasty. MEDICATIONS She is currently takin. Levetiracetam 500 milligrams q12 hours. 2. Solu-Medrol 40 milligrams q8 hours. 3. Protonix 40 milligrams a day. 4. Vancomycin IV. 5. Tessalon 100 milligrams 3x a day. 6. Albuterol nebulizer treatment. 7. Aztreonam 1000 milligrams q12 hours. 8. Pulmicort nebulizer treatment twice a day. 9. Heparin 5000 q12 hours. 10. Dilaudid p.r.n. ALLERGIES: AMITRIPTYLINE ASPIRIN PENICILLIN SULFA SOCIAL HISTORY: History of smoking in the past. No alcohol abuse. She is . FAMILY HISTORY: One daughter. 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 REVIEW OF SYSTEMS: She does not ambulate because of her multiple sclerosis. She resides at an assisted living facility. Nose/throat: No DVT or pulmonary embolism. PHYSICAL EXAMINATION: An obese elderly female in mild shortness of breath. VITAL SIGNS: Blood pressure 126/75, respiratory rate 22, temperature 99.8. HEENT: Examination unremarkable. Neck: Supple. JVP not raised. Chest: She has coarse crackles. CV: S1-S2 is normal. Abdomen: Benign. Extremities: No edema. LABORATORY FINDINGS WBC count is 9.0, hemoglobin 9.0, hematocrit 28.1, MCV 87, platelet count 209. Sodium 140, potassium 3.7, chloride 108, CO2 24, BUN 21, creatinine 0.85. Blood gas, pH 7.35, PCO2 739, PO2 44, 100% BiPAP, currently she is on nasal cannula. IMPRESSION 1. Acute on chronic respiratory insufficiency. 2. Bronchitis. 3. Pneumonia bilaterally. 4. Multiple sclerosis. 5. Possible UTI. PLAN: Albuterol and atrovent, IV Solu-Medrol, continue antibiotic vancomycin, and cefepime pending the culture, supplemental oxygen. She is on heparin for DVT prophylaxis. Protonix for GI prophylaxis. Further treatment will depend on the course in the hospital. Thank you, Dr. Beard, for this consult. Raheem Sheldon MD ADA/AMISH /5:01 PM /8:28 PM
[2016-06-21] VITALS (9 sets, daily range): BP systolic 66–154; BP diastolic 47–89; PULSE 79–116; RESP 16–24; TEMP 96.3–98; O2SAT 95–98
[2016-06-21] MEDS: HEPARIN SODIUM - SQ 10,000 UNITS/ML VIAL SQ SCH ×3 (01:40→14:30)
[2016-06-21] MEDS: ACETAMINOPHEN/HYDROcodone 325 MG/5 MG TAB PO SCH ×3 (01:41→16:36)
[2016-06-21] MEDS: methylPREDNISolone SOD SUCC 40 MG/1 ML VIAL IV PUSH SCH ×3 (04:27→20:47)
[2016-06-21] MEDS: VANCOMYCIN INJ 1,500 MG in SODIUM CHLORID 0.9% 500 ML INJ 500 ML IV SCH (06:15)
[2016-06-21] MEDS ORDERED: PANTOPRAZOLE SOD 20 MG DELAYED RELEASE TAB PO SCH (09:00)
[2016-06-21] MEDS: SODIUM CHLORIDE 0.9% FLUSH 5 ML FLUSH FLUSH SCH ×2 (09:00→20:47)
[2016-06-21] MEDS: RESP: BUDESONIDE 0.5 MG/2 ML NEB NEB SCH ×2 (09:04→19:56)
[2016-06-21] MEDS: RESP: ALBUTEROL 2.5 MG/IPRATROPIUM 0.5 MG NEB (SCH) NEB ×4 (09:05→19:56)
--- NOTE | 2016-06-21 11:41 | RADRPT ---
EXAM DATE/TIME: 06/21/2016 00:00 [facility] COMPARISON: No previous studies available for comparison. INDICATIONS : Dysphagia FLUORO TIME: 2.6 minutes IMAGE COUNT: 0 CONTRAST: Dose as prescribed by speech pathologist. MEDICAL HISTORY : Chronic obstructive pulmonary disease. multiple sclerosis, osteoporosis SURGICAL HISTORY : None. ENCOUNTER: Initial ACUITY: 3 days PAIN SCORE: 0/10 LOCATION: Bilateral neck FINDINGS: A modified barium swallow was performed with speech pathology. Patient was given a variety of liquids to swallow. There is good epiglottic closure. No episodes of aspiration were observed.For a full d etailed report, see report by the speech pathologist. CONCLUSION: Modified barium swallow in conjunction with speech pathology. Rock Olsen MD on June 21, 2016 at 11:38 Board Certified Radiologist. This report was verified electronically.
[2016-06-21] MEDS: AZTREONAM INJ 1,000 MG in SODIUM CHLORIDE 0.9% INJ 100 ML IV SCH ×3 (12:16)
[2016-06-21] MEDS: levETIRAcetam INJ 500 MG in SODIUM CHLORIDE 0.9% INJ 100 ML IV SCH (12:17)
[2016-06-21] MEDS: HYDROmorphone HCL PF 1 MG/ML VIAL IV PRN ×2 (12:30→13:00)
--- NOTE | 2016-06-21 13:39 | HHI.PR ---
Subjective Subjective Remarks less sob still with cough and occ. wheezing wants to eat had MBS this morning no fever fatigue no abd. pain no cp Review of Systems Constitutional Constitutional Remarks 12 point ROS completed, negative except as noted above, unreliable Vitals/Results Intake & Output 06/20/16 06/20/16 06/21/16 15:00 23:00 07:00 Intake Total 360 ml 0 ml Output Total 800 ml 1200 ml 500 ml Balance -440 ml -1200 ml -500 ml Intake Oral 360 ml 0 ml Output Urine Total 800 ml 1200 ml 500 ml # Bowel Movements 0 1 Vital Signs Vital Signs Date Time Temp Pulse Resp B/P Pulse Ox O2 Delivery O2 Flow Rate FiO2 06/21/16 13:21 96.3 79 16 66/ 97 06/21/16 09:07 98 Nasal Cannula 4.00 06/21/16 08:30 96.9 88 16 128/65 98 06/21/16 04:56 93 06/21/16 04:16 98.0 89 20 121/72 98 06/21/16 00:15 97.6 90 22 125/74 98 06/20/16 20:15 97.7 85 22 109/60 93 06/20/16 19:15 22 06/20/16 16:45 95 Nasal Cannula 4.00 06/20/16 16:00 99.8 90 22 126/75 97 06/20/16 15:06 22 CBC/BMP: 06/20/16 0715 06/20/16 0715 Lab Results Laboratory Tests Test 06/21/16 09:13 Lactic Acid Level 1.3 mmol/L Physical Exam General General Appearance: Well Developed, Anxious, Obese Eyes Eye Exam: Pupils Equal, Pupils Reactive Ears & Nose Ears & Nose Exam: Nasal Mucosa [place] Throat Throat Exam: Oral Mucosa [place] & Moist Pulmonary Resp Exam: Rhonchi Resp Remarks exp. wheezes Cardiology CV Exam: Regular Gastrointestinal/Abdomen GI Exam: Soft, Non-Tender, Bowel Sounds Present, Non-Distended Genitourinary Exam: Clear Urine Remarks SWANN Musculoskeletal MS Exam: Joints Intact Integumentary Skin Exam: Warm, Dry Extremeties Extremities Exam: No Edema, Pedal Pulses Palpable Neurologic Neuro Exam: Alert, Awake, Oriented, Speech Clear, Moving All Extremities, No Focal Deficits Psychiatric Psych Exam: Appropriate Responses VTE Prophylaxis VTE Prophylaxis Device: SCDs VTE Prophylaxis Meds: Heparin Assessment/Plan Problem List: (1) Acute exacerbation of chronic obstructive pulmonary disease (COPD) (2) History of multiple sclerosis (3) PNA (pneumonia) (4) Sepsis (5) Shortness of breath (6) Acute bronchitis (7) HTN (hypertension) (8) Seizure disorder (9) Hypothyroidism (10) Acute renal disease Assessment/Plan admitted with acute on chronic resp. failure, COPD exacerbation, sepsis -continue with duonebs -empiric antibiotics, follow cultures, negative so far -continue IV Solumedrol 40 mg IV q 6 -continue Tessalon, Mucinex -Lactic acid 1.3 -received Lasix 20 mg IV x 1 yesterday, diuresing well -IVF to [facility] -appreciate pulmonary input -swallow eval done, MBS done, f/u results -NPO until speech re-evaluates today ZULEYMA -IVF at [facility] -Renal fx improved HTN -continue DANII/BB Depression -continue home meds Seizure disorder -continue Keppra DNR status continue home meds Heparin for DVT prophylaxis PT eval--OOB Continue with above tx not ready for discharge D/W RN D/W Dr. Beard D/W pt This patient was seen by myself and Dr. Beard, this note is written on her behalf. Problem Qualifiers (1) PNA (pneumonia): Qualified Code: J18.9 - Pneumonia due to infectious organism, unspecified laterality, unspecified part of lung (2) Sepsis: Qualified Code: A41.9 - Sepsis, due to unspecified organism (3) Acute bronchitis: Qualified Code: J20.9 - Acute bronchitis, unspecified organism (4) HTN (hypertension): Qualified Code: I10 - Essential hypertension (5) Hypothyroidism: Qualified Code: E03.9 - Hypothyroidism, unspecified type Laurence Tian Jun 21, 2016 13:39
[2016-06-21] MEDS: PANTOPRAZOLE SODIUM 40 MG VIAL IV PUSH SCH (16:00)
[2016-06-21] MEDS: GABAPENTIN 100 MG CAP PO SCH (16:36)
[2016-06-21] MEDS: SUCRALFATE 1 GM TAB PO SCH (16:36)
[2016-06-21] MEDS: NYSTATIN SUSP 500,000 U/5 ML CUP SWISH-SWAL SCH ×2 (16:41→20:45)
--- NOTE | 2016-06-21 17:07 | HHI.HCPN ---
Reason for visit a. To assist with evaluation and management of symptoms including: shortness of breath, debility and back pain. b. To assist medical decision maker(s) with: better understanding of current medical conditions; weighing benefits/burdens of medical treatment options; making medical treatment decisions. . Subjective/Interval History Patient seen in her room. She was laying in bed in no acute distress. No family at bedside. Reports feeling better than yesterday but continues endorsing intermittent cough accompanied with chest pain. Underwent today modified barium swallow exam, no swallow delayed or penetration noted. Patient tolerating regular diet with thin liquids. Reports her appetite has improved and ate most of her lunch. Patient afebrile with stable BP. remains on 4L O2 via NC. No new labs or imaging. Patient participated in PT today, tolerated only a few steps, dyspnea/cough on minimal exertion. She remains dependent for all mobility with guarded rehab potential secondary to symptom burden. Discussed case with director of casework services, unclear at this time is long-term facility will accept patient back secondary to her increased needs/level of care. Hospice philosophy and benefits has been introduced to patient and daughter, they were both receptive of hospice for symptom management given patient's progressive disease, profound symptom burden and multiple recent acute hospitalizations. TC to daughter, left message in VM. Palliative acre will cont to f/u. . Family/friend interactions See interval note. . Advance Directives Living Will: Copy in medical record Health Care Surrogate: Never completed Durable Power of Field Captain: Never completed Advance Directive Specifics Date completed: 06/20/16. Health Care Surrogate(s): LW completed. Patient designated her daughter Renay Schulz as HCS. . Documented care wishes: No living will has been completed. . Significant change in goals: NO CODE. Cont current medical management short of no code. . Objective Vital Signs Date Time Temp Pulse Resp B/P Pulse Ox O2 Delivery O2 Flow Rate FiO2 06/21/16 16:08 96.5 88 16 94/47 97 06/21/16 13:21 96.3 79 16 129/66 97 06/21/16 09:07 98 Nasal Cannula 4.00 06/21/16 08:30 96.9 88 16 128/65 98 06/21/16 04:56 93 06/21/16 04:16 98.0 89 20 121/72 98 2/23/17 00:15 97.6 90 22 125/74 98 06/20/16 20:15 97.7 85 22 109/60 93 06/20/16 19:15 22 Intake & Output 06/21/16 06/21/16 07:00 19:00 Output Total 700 ml 750 ml Balance -700 ml -750 ml Output Urine Total 700 ml 750 ml # Bowel Movements 1 Physical Exam CONSTITUTIONAL/GENERAL: This is an adequately nourished patient in no acute distress. Looks older than stated age. TUBES/LINES/DRAINS: PIV's, Tapia catheter, SCDs. SKIN: No jaundice, rashes, or lesions. Ecchymoses on upper extremities. No wounds seen anteriorly. Skin temperature appropriate. Not diaphoretic. HEAD: Atraumatic. Normocephalic. EYES: Pupils equal and round and reactive. Extraocular motions intact. No scleral icterus. No injection or drainage. ENT: Hearing grossly normal. Legally blind. Nose without bleeding or purulent drainage. Dry lips. NECK: Trachea midline. Supple, nontender. CARDIOVASCULAR: Regular rate and rhythm. Peripheral pulses symmetric. RESPIRATORY/CHEST: Increased work of breathing , tachypneic at times. clear breath sounds. GASTROINTESTINAL: Abdomen soft, round, large. Unable to appreciate hepato- splenomegaly secondary to body habitus. No guarding. Bowel sounds present. GENITOURINARY: Without palpable bladder distension. Tapia catheter in place. MUSCULOSKELETAL: Bilateral foot drop. NEUROLOGICAL: Awake and alert. Follows commands. Cognitively sharp. Moves all extremities. PSYCHIATRIC: calm. . Diagnostic Tests Laboratory Laboratory Tests Test 06/18/16 06/18/16 06/18/16 06/19/16 22:30 22:35 23:00 04:30 Urine Color YELLOW (YELLW/STRAW) Urine Turbidity CLEAR (CLEAR) Urine pH 5.5 (5.0-8.5) Urine Specific [place] 1.020 (1.002-1.035) Urine Protein 30 mg/dL (NEG-TRACE) Urine Glucose (UA) NEG mg/dL (NEG) Urine Ketones NEG mg/dL (NEG) Urine Occult Blood NEG (NEG) Urine Nitrite NEG (NEG) Urine Bilirubin NEG (NEG) Urine Urobilinogen LESS THAN 2.0 MG/DL (LESS THAN 2.0) Urine Leukocyte Esterase NEG (NEG) Urine RBC 1 /hpf (0-3) Urine WBC 1 /hpf (0-5) Urine Squamous Epithelial <1 /hpf (0-5) Cells Urine Bacteria RARE /hpf (NONE) Urine Hyaline Casts 17 /lpf (RARE) Urine Mucus FEW /lpf (OCC) Microscopic Urinalysis Comment CATH-CULTURE IND White Blood Count 16.9 TH/MM3 (4.0-11.0) Red Blood Count 3.81 MIL/MM3 (4.00-5.30) Hemoglobin 10.5 GM/DL (11.6-15.3) Hematocrit 33.3 % (35.0-46.0) Mean Corpuscular Volume 87.4 FL (80.0-100.0) Mean Corpuscular Hemoglobin 27.6 PG (27.0-34.0) Mean Corpuscular Hemoglobin 31.6 % Concent (32.0-36.0) Red Cell Distribution Width 18.2 % (11.6-17.2) Platelet Count 296 TH/MM3 (150-450) Mean Platelet Volume 9.4 FL (7.0-11.0) Neutrophils (%) (Auto) 75.3 % (16.0-70.0) Lymphocytes (%) (Auto) 13.2 % (9.0-44.0) Monocytes (%) (Auto) 10.0 % (0.0-8.0) Eosinophils (%) (Auto) 0.9 % (0.0-4.0) Basophils (%) (Auto) 0.6 % (0.0-2.0) Neutrophils # (Auto) 12.7 TH/MM3 (1.8-7.7) Lymphocytes # (Auto) 2.2 TH/MM3 (1.0-4.8) Monocytes # (Auto) 1.7 TH/MM3 (0-0.9) Eosinophils # (Auto) 0.1 TH/MM3 (0-0.4) Basophils # (Auto) 0.1 TH/MM3 (0-0.2) CBC Comment DIFF FINAL Differential Comment Prothrombin Time 10.7 SEC (9.8-11.6) Prothromb Time International 1.0 RATIO Ratio Activated Partial 23.9 SEC Thromboplast Time (24.3-30.1) Sodium Level 142 MEQ/L (136-145) Potassium Level 3.9 MEQ/L (3.5-5.1) Chloride Level 107 MEQ/L (98-107) Carbon Dioxide Level 23.3 MEQ/L (21.0-32.0) Anion Gap 12 MEQ/L (5-15) Blood Urea Nitrogen 41 MG/DL (7-18) Creatinine 1.46 MG/DL (0.50-1.00) Estimat Glomerular Filtration 36 ML/MIN (>89) Rate Random Glucose 236 MG/DL (74-106) Calcium Level 8.6 MG/DL (8.5-10.1) Phosphorus Level 4.3 MG/DL (2.5-4.9) Magnesium Level 1.9 MG/DL (1.5-2.5) Total Bilirubin 0.4 MG/DL (0.2-1.0) Aspartate Amino Transf 12 U/L (15-37) (AST/SGOT) Alanine Aminotransferase 29 U/L (10-53) (ALT/SGPT) Alkaline Phosphatase 89 U/L (45-117) Total Creatine Kinase 26 U/L (26-192) Troponin I LESS THAN 0.02 NG/ML (0.02-0.05) Total Protein 7.9 GM/DL (6.4-8.2) Albumin 3.3 GM/DL (3.4-5.0) Lactic Acid Level 2.8 mmol/L 2.4 mmol/L (0.4-2.0) (0.4-2.0) Blood Gas Puncture Site LINE Blood Gas Patient Temperature 98.6 Venous Blood pH 7.35 (7.360-7.400) Venous Blood Partial Pressure 39 mmHg (44-48) CO2 Venous Blood Partial Pressure 44 mmHg (35-40) O2 Venous Blood HCO3 21 mmol/L (22-26) Venous Blood Oxygen Saturation 71 % (70-76) Venous Blood Oxygen Content 10.4 Vol % (9.0-17.0) Venous Blood Base Excess -3.4 mmol/L (-2-2) Oxygen Delivery Device NPPV Blood Gas Ventilator Setting IPAP/10/EPAP5 Blood Gas Inspired Oxygen 100 % Test 06/19/16 06/19/16 06/20/16 06/21/16 04:35 09:16 07:15 09:13 Troponin I LESS THAN 0.02 LESS THAN 0.02 NG/ML NG/ML (0.02-0.05) (0.02-0.05) White Blood Count 9.0 TH/MM3 (4.0-11.0) Red Blood Count 3.22 MIL/MM3 (4.00-5.30) Hemoglobin 9.0 GM/DL (11.6-15.3) Hematocrit 28.2 % (35.0-46.0) Mean Corpuscular Volume 87.6 FL (80.0-100.0) Mean Corpuscular Hemoglobin 27.9 PG (27.0-34.0) Mean Corpuscular Hemoglobin 31.8 % Concent (32.0-36.0) Red Cell Distribution Width 18.5 % (11.6-17.2) Platelet Count 209 TH/MM3 (150-450) Mean Platelet Volume 8.6 FL (7.0-11.0) Neutrophils (%) (Auto) 70.0 % (16.0-70.0) Lymphocytes (%) (Auto) 14.5 % (9.0-44.0) Monocytes (%) (Auto) 11.7 % (0.0-8.0) Eosinophils (%) (Auto) 3.4 % (0.0-4.0) Basophils (%) (Auto) 0.4 % (0.0-2.0) Neutrophils # (Auto) 6.3 TH/MM3 (1.8-7.7) Lymphocytes # (Auto) 1.3 TH/MM3 (1.0-4.8) Monocytes # (Auto) 1.0 TH/MM3 (0-0.9) Eosinophils # (Auto) 0.3 TH/MM3 (0-0.4) Basophils # (Auto) 0.0 TH/MM3 (0-0.2) CBC Comment DIFF FINAL Differential Comment Sodium Level 141 MEQ/L (136-145) Potassium Level 3.7 MEQ/L (3.5-5.1) Chloride Level 108 MEQ/L (98-107) Carbon Dioxide Level 23.9 MEQ/L (21.0-32.0) Anion Gap 9 MEQ/L (5-15) Blood Urea Nitrogen 21 MG/DL (7-18) Creatinine 0.85 MG/DL (0.50-1.00) Estimat Glomerular Filtration 67 ML/MIN (>89) Rate Random Glucose 101 MG/DL (74-106) Calcium Level 8.9 MG/DL (8.5-10.1) Lactic Acid Level 1.3 mmol/L (0.4-2.0) Result Diagram: 06/20/16 0715 06/20/16 0715 Microbiology Microbiology Date/Time Procedure Status Source Growth 06/18/16 22:25 Aerobic Blood Culture - Preliminary Resulted Blood Peripheral NO GROWTH IN 3 DAYS 06/18/16 22:25 Anaerobic Blood Culture - Preliminary Resulted Blood Peripheral NO GROWTH IN 3 DAYS 06/18/16 22:30 Urine Culture - Final Complete Urine Catheterized Urine NO GROWTH IN 48 HOURS. 06/18/16 22:35 Aerobic Blood Culture - Preliminary Resulted Blood Peripheral NO GROWTH IN 3 DAYS 06/18/16 22:35 Anaerobic Blood Culture - Preliminary Resulted Blood Peripheral NO GROWTH IN 3 DAYS Imaging Last Impressions Modified Barium Swallow 06/21/16 0000 Signed Impressions: Service Date/Time: May 00:00 - CONCLUSION: Modified barium swallow in conjunction with speech pathology. Rock Olsen MD Chest X-Ray 06/20/16 0000 Signed Impressions: Service Date/Time: Monday, June 20, 2016 12:09 - CONCLUSION: Bibasilar areas of somewhat thickened indistinct density consistent with consolidation and/or associated atelectasis. Chepe Nicholas MD CT Angiography 06/19/16 0000 Signed Impressions: Service Date/Time: Sunday, June 19, 2016 01:23 - CONCLUSION: 1. No pulmonary embolus. 2. Dense consolidations in the implementation specialist payroll medial lower lungs bilaterally. 3. Distention of the esophagus throughout the chest. 4. Nonspecific prominent lymph nodes in the precarinal and right hilar region. Luiz Shrestha MD Assessment and Plan Disease Oriented Problem List: (1) Acute exacerbation of chronic obstructive pulmonary disease (COPD) (2) Sepsis (3) PNA (pneumonia) (4) History of multiple sclerosis Symptom Scale: (1) Shortness of breath 0-10 Scale: 8 Comment: Profound shortness of breath at rest and on minimal exertion, secondary to COPD exacerbation and pneumonia. (2) Debility Comment: Progressive during the last 12 months. (3) Pain, chronic 0-10 Scale: Unable to quantify Comment: Secondary to multiple spinal fractures/orthopedic surgical interventions. Pertinent Non-Medical Issues Psychosocial: Divorce. Retired. Has 1 daughter. Spiritual: No islam affiliation. Legal: Living will completed. Ethical issues impacting care: No living will completed. . Important Contacts Daughter Renay Schulz [phone]. [phone]. . Prognosis Mrs. Tejeda to 66-year-old female with a medical history significant for COPD and multiple sclerosis. Patient has been disabled since 1994 secondary to multiple sclerosis. Residing at long-term facility since June 2015 secondary to progressive decline in physical deconditioning. Now it's a bed to chair bound and requires significant assistance with ADLs. Patient has had a total of 5 acute hospitalizations within the past 12 months secondary to COPD exacerbation, respiratory distress, sepsis and pneumonia. Patient's condition continues to worsen, secondary to profound physical deconditioning and progression of illness. Patient is a high risk for further decline, occasional complications and . Patient with a very poor prognosis for an increase quality of life or long-term survival. Patient likely appropriate for hospice services at this time should she elects comfort directed care. . Code Status: No Code Plan * CODE STATUS: No code. DNR/DNI. Patient OK with noninvasive respiratory support such as BiPAP if needed. * Community DNR signed and scanned. * MEDICAL DECISION-MAKING: Palliative care assisted patient in completing HCS designation. Patient designated her daughter Renya Schulz as HCS. * GOALS OF CARE: Continue aggressive care short of no code/allow time for clinical improvement. * Hospice: Introduced hospice philosophy and benefits, reviewed the future role of hospice should her clinical condition continues to worsen/or she decides to transition to comfort directed care. Hospice information given to daughter at her request. If patient and family wish to pursue comfort-directed care, patient eligible for hospice benefits under CMS guidelines for COPD as evidenced by O2 dependent, disabling dyspnea at rest, more than 3 acute hospitalizations for COPD in the past year, evidence of progressive pulmonary disease and Karnofsky <50/PPS of 30%. * SYMPTOMS: == Profound shortness of breath, secondary to COPD progression/ exacerbation, pneumonia. On antibiotics. == Profound physical deconditioning, secondary to MS, frequent prolonged hospitalizations, and acute events. Likely to worsen. == Pain, chronic secondary to multiple spinal fractures/orthopedic surgical procedures. Remains on home regimen of [place] 5/325. * Palliative care contact information has been provided. * Palliative care to continue to follow-up for further clarifications of goals of care. . Time Spent Total Floor Time (mins): 36 (Total time to include review and summarization of available medical records, physical exam, conversation with patient and case discussion with director of casework services. ) >50% Counseling/Coord of Care: Yes Attestation To help prompt me to consider important information that might be impacting today's encounter and assessment, information from prior notes written by myself or my colleagues may have been "brought forward" into today's note. My signature on this note, however, is an attestation that I personally performed the exam, history, and/or decision-making noted today, and, unless otherwise indicated, the interactions with patient, family, and staff as well as the review of records all occurred today. I also attest that the listed assessment and stated plan reflect my best clinical judgment today based on the combination of historical information, prior notes, and today's exam/ interactions. When time spent is documented, it refers only to time spent today by the signer, or if indicated, combined time spent today by collaborating physician/nurse practitioner. Leilani Lama Jun 21, 2016 17:06
--- NOTE | 2016-06-21 18:12 | HHI.PR ---
Subjective Remarks 66 YOWF with resp insuff,MS,SOB Feels better Weaned to NC No Fever Has congestion in chest Objective Vital Signs Vital Signs Date Time Temp Pulse Resp B/P Pulse Ox O2 Delivery O2 Flow Rate FiO2 06/21/16 16:08 96.5 88 16 94/47 97 06/21/16 13:21 96.3 79 16 129/66 97 06/21/16 09:07 98 Nasal Cannula 4.00 06/21/16 08:30 96.9 88 16 128/65 98 06/21/16 04:56 93 06/21/16 04:16 98.0 89 20 121/72 98 06/21/16 00:15 97.6 90 22 125/74 98 06/20/16 20:15 97.7 85 22 109/60 93 06/20/16 19:15 22 I/O 06/20/16 06/20/16 06/20/16 06/21/16 06/21/16 06/21/16 07:00 15:00 23:00 07:00 15:00 23:00 Intake Total 1483 ml 360 ml 0 ml Output Total 700 ml 800 ml 1200 ml 500 ml 750 ml Balance 783 ml -440 ml -1200 ml -500 ml -750 ml Intake Oral 360 ml 0 ml IV Total 1483 ml Output Urine Total 700 ml 800 ml 1200 ml 500 ml 750 ml # Bowel Movements 0 1 Result Diagram: 06/20/1615 06/20/16 0715 Objective Remarks GENERAL: MBMN WF with mild sob SKIN: Warm and dry. HEAD: Normocephalic. EYES: No scleral icterus. No injection or drainage. NECK: Supple, trachea midline. No JVD or lymphadenopathy. CARDIOVASCULAR: Regular rate and rhythm without murmurs, gallops, or rubs. RESPIRATORY: Breath sounds equal bilaterally. No accessory muscle use. Scattered Rales GASTROINTESTINAL: Abdomen soft, non-tender, nondistended. MUSCULOSKELETAL: No cyanosis, or edema. BACK: Nontender without obvious deformity. No CVA tenderness. A/P Assessment and Plan Resp insff improving Bilat Infilt MS PLAN: Aerosol nebs IV Solumedrol cont Abx vanco and Cefepime Wean 02 Check cultures. Florentin Bhatti MD Jun 21, 2016 18:12
[2016-06-21] MEDS: levETIRAcetam 500 MG TAB PO SCH (20:45)
[2016-06-21] MEDS: LORazepam 0.5 MG TAB PO PRN (21:19)
[2016-06-21] MEDS ORDERED: PHARMACY ORDERED LAB XX ONE (22:45)
[2016-06-22] VITALS (11 sets, daily range): BP systolic 113–149; BP diastolic 62–80; PULSE 81–104; RESP 16–22; TEMP 96.7–98.1; O2SAT 95–98
[2016-06-22] MEDS ORDERED: PHARMACY ORDERED LAB XX ONE (00:45)
[2016-06-22] MEDS: ACETAMINOPHEN/HYDROcodone 325 MG/5 MG TAB PO SCH ×4 (01:13→16:07)
[2016-06-22] MEDS: AZTREONAM INJ 1,000 MG in SODIUM CHLORIDE 0.9% INJ 100 ML IV SCH ×3 (01:14→22:54)
[2016-06-22] MEDS: HEPARIN SODIUM - SQ 10,000 UNITS/ML VIAL SQ SCH ×2 (02:01→12:59)
[2016-06-22] MEDS: VANCOMYCIN INJ 1,500 MG in SODIUM CHLORID 0.9% 500 ML INJ 500 ML IV SCH (02:01)
[2016-06-22] MEDS: methylPREDNISolone SOD SUCC 40 MG/1 ML VIAL IV PUSH SCH ×2 (04:11→21:41)
[2016-06-22] MEDS: HYDROmorphone HCL 2 MG TAB PO PRN ×3 (04:29→21:42)
[2016-06-22] MEDS: RESP: ALBUTEROL 2.5 MG/IPRATROPIUM 0.5 MG NEB (PRN) NEB (04:44)
[2016-06-22] MEDS: LEVOTHYROXINE SODIUM 25 MCG TAB PO SCH (05:47)
[2016-06-22] MEDS: LEVOTHYROXINE SODIUM 200 MCG TAB PO SCH (05:47)
[2016-06-22] MEDS: BENZONATATE 100 MG CAP PO PRN ×2 (05:49→13:00)
[2016-06-22] MEDS: LORazepam 0.5 MG TAB PO PRN ×2 (05:49→13:00)
[2016-06-22 07:36] LABS: AUTOMATED NEUTROPHIL # 7.4 TH/MM3 (1.8-7.7); HEMATOCRIT 30.1 % (35.0-46.0); HEMO FLAGS DIFF FINAL; LYMPHOCYTE # 0.6 TH/MM3 (1.0-4.8); MEAN CORPUSCULAR HEMOGLOBIN 27.6 PG (27.0-34.0); MEAN CORPUSCULAR HGB CONC 31.7 % (32.0-36.0); MONO % 6.8 % (0.0-8.0); NEUT % 86.2 % (16.0-70.0); PLATELET COUNT 249 TH/MM3 (150-450); RED BLOOD COUNT 3.46 MIL/MM3 (4.00-5.30); RED CELL DISTRIBUTION WIDTH 18.4 % (11.6-17.2); WHITE BLOOD COUNT 8.6 TH/MM3 (4.0-11.0)
[2016-06-22 07:53] LABS: BICARBONATE 25.9 MEQ/L (21.0-32.0); POTASSIUM 4.2 MEQ/L (3.5-5.1)
[2016-06-22] MEDS: RESP: BUDESONIDE 0.5 MG/2 ML NEB NEB SCH ×2 (08:13→20:46)
[2016-06-22] MEDS: RESP: ALBUTEROL 2.5 MG/IPRATROPIUM 0.5 MG NEB (SCH) NEB ×4 (08:13→20:46)
[2016-06-22] MEDS: SODIUM CHLORIDE 0.9% FLUSH 5 ML FLUSH FLUSH SCH ×2 (09:00→21:41)
[2016-06-22] MEDS: NYSTATIN SUSP 500,000 U/5 ML CUP SWISH-SWAL SCH ×4 (09:14→21:42)
[2016-06-22] MEDS: levETIRAcetam 500 MG TAB PO SCH ×2 (09:14→21:43)
[2016-06-22] MEDS: SUCRALFATE 1 GM TAB PO SCH ×3 (09:14→16:07)
[2016-06-22] MEDS: GABAPENTIN 100 MG CAP PO SCH ×3 (09:16→16:06)
[2016-06-22] MEDS: ATORVASTATIN 10 MG TAB PO SCH (09:16)
[2016-06-22] MEDS: SERTRALINE HCL 50 MG TAB PO SCH (09:16)
[2016-06-22] MEDS: LISINOPRIL 5 MG TAB PO SCH (09:17)
--- NOTE | 2016-06-22 10:19 | HHI.PR ---
Subjective Subjective Remarks less sob and wheezing inc. cough at night slept poorly no fever left sided and lateral rib pain with palpation, no recent injury but has been coughing a lot eating now, no problems swallowing Review of Systems Constitutional Constitutional Remarks 12 point ROS completed, negative except as noted above, unreliable Vitals/Results Intake & Output 06/21/16 06/21/16 06/22/16 15:00 23:00 07:00 Output Total 750 ml 350 ml 1000 ml Balance -750 ml -350 ml -1000 ml Output Urine Total 750 ml 350 ml 1000 ml Vital Signs Vital Signs Date Time Temp Pulse Resp B/P Pulse Ox O2 Delivery O2 Flow Rate FiO2 06/22/16 08:18 98.1 89 16 147/64 96 06/22/16 08:13 98 Nasal Cannula 3.00 06/22/16 07:22 18 06/22/16 04:44 98 Nasal Cannula 3.00 06/22/16 04:32 97.2 93 22 113/70 97 06/22/16 00:06 97.3 98 18 118/69 98 06/21/16 22:46 16 06/21/16 20:26 98.0 116 24 154/89 96 06/21/16 19:58 95 Nasal Cannula 4.00 06/21/16 16:08 96.5 88 16 94/47 97 06/21/16 13:21 96.3 79 16 129/66 97 CBC/BMP: 06/22/16 0626 06/22/16 0626 Lab Results Laboratory Tests Test 06/22/16 06/22/16 01:33 06:26 Vancomycin Level Trough 20.1 MCG/ML White Blood Count 8.6 TH/MM3 Red Blood Count 3.46 MIL/MM3 Hemoglobin 9.6 GM/DL Hematocrit 30.1 % Mean Corpuscular Volume 87.0 FL Mean Corpuscular Hemoglobin 27.6 PG Mean Corpuscular Hemoglobin 31.7 % Concent Red Cell Distribution Width 18.4 % Platelet Count 249 TH/MM3 Mean Platelet Volume 8.7 FL Neutrophils (%) (Auto) 86.2 % Lymphocytes (%) (Auto) 7.0 % Monocytes (%) (Auto) 6.8 % Eosinophils (%) (Auto) 0.0 % Basophils (%) (Auto) 0.0 % Neutrophils # (Auto) 7.4 TH/MM3 Lymphocytes # (Auto) 0.6 TH/MM3 Monocytes # (Auto) 0.6 TH/MM3 Eosinophils # (Auto) 0.0 TH/MM3 Basophils # (Auto) 0.0 TH/MM3 CBC Comment DIFF FINAL Differential Comment Sodium Level 137 MEQ/L Potassium Level 4.2 MEQ/L Chloride Level 101 MEQ/L Carbon Dioxide Level 25.9 MEQ/L Anion Gap 10 MEQ/L Blood Urea Nitrogen 24 MG/DL Creatinine 0.85 MG/DL Estimat Glomerular Filtration 67 ML/MIN Rate Random Glucose 197 MG/DL Calcium Level 9.0 MG/DL Physical Exam General General Appearance: Well Developed, No Acute Distress, Comfortable, Sleeping, Obese Eyes Eye Exam: Pupils Equal, Pupils Reactive Ears & Nose Ears & Nose Exam: Nasal Mucosa [place] Throat Throat Exam: Oral Mucosa [place] & Moist Pulmonary Resp Remarks exp. wheezes Cardiology CV Exam: Regular Gastrointestinal/Abdomen GI Exam: Soft, Non-Tender, Bowel Sounds Present, Non-Distended Genitourinary Exam: Clear Urine Remarks SWANN Musculoskeletal MS Exam: Joints Intact Integumentary Skin Exam: Warm, Dry Extremeties Extremities Exam: No Edema, Pedal Pulses Palpable Neurologic Neuro Exam: Alert, Awake, Oriented, Speech Clear, Moving All Extremities, No Focal Deficits Psychiatric Psych Exam: Appropriate Responses VTE Prophylaxis VTE Prophylaxis Device: SCDs VTE Prophylaxis Meds: Heparin Assessment/Plan Problem List: (1) Acute exacerbation of chronic obstructive pulmonary disease (COPD) (2) History of multiple sclerosis (3) PNA (pneumonia) (4) Sepsis (5) Shortness of breath (6) Acute bronchitis (7) HTN (hypertension) (8) Seizure disorder (9) Hypothyroidism (10) Acute renal disease Assessment/Plan admitted with acute on chronic resp. failure, COPD exacerbation, sepsis -continue with duonebs -empiric antibiotics, follow cultures, negative so far -continue IV Solumedrol 40 mg q 6, wean down BID -continue Tessalon, Mucinex, add Robitussin -appreciate pulmonary input -swallow eval done, MBS done-no aspiration -continue with diet per speech recommendations ZULEYMA -IVF at [facility] -Renal fx improved HTN -continue DANII/BB Depression -continue home meds Seizure disorder -continue Keppra DNR status continue home meds Heparin for DVT prophylaxis PT eval--OOB Continue with above tx Improving, poss. dc to SNF Saturday D/W RN D/W Dr. Beard D/W pt This patient was seen by myself and Dr. Beard, this note is written on her behalf. Problem Qualifiers (1) PNA (pneumonia): Qualified Code: J18.9 - Pneumonia due to infectious organism, unspecified laterality, unspecified part of lung (2) Sepsis: Qualified Code: A41.9 - Sepsis, due to unspecified organism (3) Acute bronchitis: Qualified Code: J20.9 - Acute bronchitis, unspecified organism (4) HTN (hypertension): Qualified Code: I10 - Essential hypertension (5) Hypothyroidism: Qualified Code: E03.9 - Hypothyroidism, unspecified type Laurence Tian Jun 22, 2016 10:19 (5) Hypothyroidism: Qualified Code: E03.9 - Hypothyroidism, unspecified type Laurence Tian Jun 22, 2016 10:19
[2016-06-22] MEDS ORDERED: guaiFENesin/CODEINE SYRUP 200 MG/20 MG/10 ML CUP PO PRN (12:00)
--- NOTE | 2016-06-22 15:01 | HHI.HCPN ---
Reason for visit a. To assist with evaluation and management of symptoms including: shortness of breath, debility and back pain. b. To assist medical decision maker(s) with: better understanding of current medical conditions; weighing benefits/burdens of medical treatment options; making medical treatment decisions. . Subjective/Interval History Patient seen in her room. She was laying in bed in no acute distress. No family at bedside. Endorsing left-sided ribs/chest pain worsen with exacerbation or coughing, relieved with rest. Reports having a good appetite this morning and being able to eat most of her food today. Dyspnea on exacerbation, tolerating O2 via NC. Less cough than yesterday. Patient afebrile with stable BP. remains on 4L O2 via NC. Labs today WBC 8.6, Hgb 9.6, pl 249. Na 137, K 4.2, Bun/creat 24/0.85. No new imaging. . Family/friend interactions Telephone conversation with patient's daughter Renay. Medical update provided , reviewed current treatment plan. Daughter asking regarding discharge options, encouraged her to speak with caser up. provided CM contact information. daughter inquiring regarding hospice services, she feels that patient would benefit from symptom management with hospice given her progressive disease and severe symptom burden. Daughter agreed with hospice consultation for additional information. Hospice referral made. . Advance Directives Living Will: Copy in medical record Health Care Surrogate: Never completed Durable Power of Production Supervisor Off Shift: Never completed Advance Directive Specifics Date completed: 06/20/16. Health Care Surrogate(s): LW completed. Patient designated her daughter Renay Schulz as HCS. . Documented care wishes: No living will has been completed. . Objective Vital Signs Date Time Temp Pulse Resp B/P Pulse Ox O2 Delivery O2 Flow Rate FiO2 06/22/16 12:55 96.7 104 16 142/77 95 06/22/16 08:18 98.1 89 16 147/64 96 06/22/16 08:13 98 Nasal Cannula 3.00 06/22/16 07:22 18 06/22/16 04:44 98 Nasal Cannula 3.00 06/22/16 04:32 97.2 93 22 113/70 97 06/22/16 00:06 97.3 98 18 118/69 98 06/21/16 22:46 16 06/21/16 20:26 98.0 116 24 154/89 96 06/21/16 19:58 95 Nasal Cannula 4.00 06/21/16 16:08 96.5 88 16 94/47 97 Intake & Output 06/22/16 06/22/16 07:00 19:00 Output Total 1350 ml Balance -1350 ml Output Urine Total 1350 ml Physical Exam CONSTITUTIONAL/GENERAL: This is an adequately nourished patient in no acute distress. Looks older than stated age. TUBES/LINES/DRAINS: PIV's, Tapia catheter, SCDs. SKIN: No jaundice, rashes, or lesions. Ecchymoses on upper extremities. No wounds seen anteriorly. Skin temperature appropriate. Not diaphoretic. HEAD: Atraumatic. Normocephalic. EYES: Pupils equal and round and reactive. Extraocular motions intact. No scleral icterus. No injection or drainage. ENT: Hearing grossly normal. Legally blind. Nose without bleeding or purulent drainage. Dry lips. NECK: Trachea midline. Supple, nontender. CARDIOVASCULAR: Regular rate and rhythm. Peripheral pulses symmetric. RESPIRATORY/CHEST: Increased work of breathing , tachypneic at times. clear breath sounds. GASTROINTESTINAL: Abdomen soft, round, large. Unable to appreciate hepato- splenomegaly secondary to body habitus. No guarding. Bowel sounds present. GENITOURINARY: Without palpable bladder distension. Tapia catheter in place. MUSCULOSKELETAL: Bilateral foot drop. NEUROLOGICAL: Awake and alert. Follows commands. Cognitively sharp. Moves all extremities. PSYCHIATRIC: calm. . Diagnostic Tests Laboratory Laboratory Tests Test 06/20/16 06/21/16 06/22/16 06/22/16 07:15 09:13 01:33 06:26 White Blood Count 9.0 TH/MM3 8.6 TH/MM3 (4.0-11.0) (4.0-11.0) Red Blood Count 3.22 MIL/MM3 3.46 MIL/MM3 (4.00-5.30) (4.00-5.30) Hemoglobin 9.0 GM/DL 9.6 GM/DL (11.6-15.3) (11.6-15.3) Hematocrit 28.2 % 30.1 % (35.0-46.0) (35.0-46.0) Mean Corpuscular Volume 87.6 FL 87.0 FL (80.0-100.0) (80.0-100.0) Mean Corpuscular Hemoglobin 27.9 PG 27.6 PG (27.0-34.0) (27.0-34.0) Mean Corpuscular Hemoglobin 31.8 % 31.7 % Concent (32.0-36.0) (32.0-36.0) Red Cell Distribution Width 18.5 % 18.4 % (11.6-17.2) (11.6-17.2) Platelet Count 209 TH/MM3 249 TH/MM3 (150-450) (150-450) Mean Platelet Volume 8.6 FL 8.7 FL (7.0-11.0) (7.0-11.0) Neutrophils (%) (Auto) 70.0 % 86.2 % (16.0-70.0) (16.0-70.0) Lymphocytes (%) (Auto) 14.5 % 7.0 % (9.0-44.0) (9.0-44.0) Monocytes (%) (Auto) 11.7 % 6.8 % (0.0-8.0) (0.0-8.0) Eosinophils (%) (Auto) 3.4 % (0.0-4.0) 0.0 % (0.0-4.0) Basophils (%) (Auto) 0.4 % (0.0-2.0) 0.0 % (0.0-2.0) Neutrophils # (Auto) 6.3 TH/MM3 7.4 TH/MM3 (1.8-7.7) (1.8-7.7) Lymphocytes # (Auto) 1.3 TH/MM3 0.6 TH/MM3 (1.0-4.8) (1.0-4.8) Monocytes # (Auto) 1.0 TH/MM3 0.6 TH/MM3 (0-0.9) (0-0.9) Eosinophils # (Auto) 0.3 TH/MM3 0.0 TH/MM3 (0-0.4) (0-0.4) Basophils # (Auto) 0.0 TH/MM3 0.0 TH/MM3 (0-0.2) (0-0.2) CBC Comment DIFF FINAL DIFF FINAL Differential Comment Sodium Level 141 MEQ/L 137 MEQ/L (136-145) (136-145) Potassium Level 3.7 MEQ/L 4.2 MEQ/L (3.5-5.1) (3.5-5.1) Chloride Level 108 MEQ/L 101 MEQ/L (98-107) (98-107) Carbon Dioxide Level 23.9 MEQ/L 25.9 MEQ/L (21.0-32.0) (21.0-32.0) Anion Gap 9 MEQ/L (5-15) 10 MEQ/L (5-15) Blood Urea Nitrogen 21 MG/DL (7-18) 24 MG/DL (7-18) Creatinine 0.85 MG/DL 0.85 MG/DL (0.50-1.00) (0.50-1.00) Estimat Glomerular Filtration 67 ML/MIN (>89) 67 ML/MIN (>89) Rate Random Glucose 101 MG/DL 197 MG/DL (74-106) (74-106) Calcium Level 8.9 MG/DL 9.0 MG/DL (8.5-10.1) (8.5-10.1) Lactic Acid Level 1.3 mmol/L (0.4-2.0) Vancomycin Level Trough 20.1 MCG/ML (5.0-10.0) Result Diagram: 06/22/1662506/22/16625 Assessment and Plan Disease Oriented Problem List: (1) Acute exacerbation of chronic obstructive pulmonary disease (COPD) (2) Sepsis (3) PNA (pneumonia) (4) History of multiple sclerosis Symptom Scale: (1) Shortness of breath 0-10 Scale: 8 Comment: Profound shortness of breath at rest and on minimal exertion, secondary to COPD exacerbation and pneumonia. (2) Debility Comment: Progressive during the last 12 months. (3) Pain, chronic 0-10 Scale: Unable to quantify Comment: Secondary to multiple spinal fractures/orthopedic surgical interventions. Pertinent Non-Medical Issues Psychosocial: Divorce. Retired. Has 1 daughter. Spiritual: No worship affiliation. Legal: Living will completed. Ethical issues impacting care: No living will completed. . Important Contacts Daughter Renay Schulz [phone]. [phone]. . Prognosis Mrs. Tejeda to 66-year-old female with a medical history significant for COPD and multiple sclerosis. Patient has been disabled since 1994 secondary to multiple sclerosis. Residing at long-term facility since June 2015 secondary to progressive decline in physical deconditioning. Now it's a bed to chair bound and requires significant assistance with ADLs. Patient has had a total of 5 acute hospitalizations within the past 12 months secondary to COPD exacerbation, respiratory distress, sepsis and pneumonia. Patient's condition continues to worsen, secondary to profound physical deconditioning and progression of illness. Patient is a high risk for further decline, occasional complications and . Patient with a very poor prognosis for an increase quality of life or long-term survival. Patient likely appropriate for hospice services at this time should she elects comfort directed care. . Code Status: No Code Plan * CODE STATUS: No code. DNR/DNI. Patient OK with noninvasive respiratory support such as BiPAP if needed. * Community DNR in chart. * MEDICAL DECISION-MAKING: Patient designated her daughter Renay Scuhlz as HCS. * GOALS OF CARE: Continue aggressive care short of no code/allow time for clinical improvement. * Hospice: Introduced hospice philosophy and benefits, reviewed the future role of hospice should her clinical condition continues to worsen/or she decides to transition to comfort directed care. Hospice information given to daughter at her request. If patient and family wish to pursue comfort-directed care, patient eligible for hospice benefits under CMS guidelines for COPD as evidenced by O2 dependent, disabling dyspnea at rest, more than 3 acute hospitalizations for COPD in the past year, evidence of progressive pulmonary disease and Karnofsky <50/PPS of 30%. * Hospice referral made as per daughter's request. * SYMPTOMS: == Profound shortness of breath, secondary to COPD progression/ exacerbation, pneumonia. On antibiotics. == Profound physical deconditioning, secondary to MS, frequent prolonged hospitalizations, and acute events. Likely to worsen. == Pain, chronic secondary to multiple spinal fractures/orthopedic surgical procedures. Remains on home regimen of [place] 5/325. * Palliative care contact information has been provided. * Palliative care to continue to follow-up for further clarifications of goals of care. . Time Spent Total Floor Time (mins): 34 (Total time to include review of medical records, physical exam, telephone conversation with daughter and case discussion with association executive. ) >50% Counseling/Coord of Care: Yes Attestation To help prompt me to consider important information that might be impacting today's encounter and assessment, information from prior notes written by myself or my colleagues may have been "brought forward" into today's note. My signature on this note, however, is an attestation that I personally performed the exam, history, and/or decision-making noted today, and, unless otherwise indicated, the interactions with patient, family, and staff as well as the review of records all occurred today. I also attest that the listed assessment and stated plan reflect my best clinical judgment today based on the combination of historical information, prior notes, and today's exam/ interactions. When time spent is documented, it refers only to time spent today by the signer, or if indicated, combined time spent today by collaborating physician/nurse practitioner. Leilani Lama Jun 22, 2016 15:01
[2016-06-22] MEDS: PANTOPRAZOLE SODIUM 40 MG VIAL IV PUSH SCH (16:06)
--- NOTE | 2016-06-22 19:19 | HHI.PR ---
Subjective Remarks 66 YOWF with resp insuff,MS,SOB Feels better Weaned to NC No Fever Breathing better Objective Vital Signs Vital Signs Date Time Temp Pulse Resp B/P Pulse Ox O2 Delivery O2 Flow Rate FiO2 06/22/16 15:32 97.3 99 18 123/65 95 06/22/16 12:55 96.7 104 16 142/77 95 06/22/16 08:18 98.1 89 16 147/64 96 06/22/16 08:13 98 Nasal Cannula 3.00 06/22/16 07:22 18 06/22/16 04:44 98 Nasal Cannula 3.00 06/22/16 04:32 97.2 93 22 113/70 97 06/22/16 00:06 97.3 98 18 118/69 98 06/21/16 22:46 16 06/21/16 20:26 98.0 116 24 154/89 96 06/21/16 19:58 95 Nasal Cannula 4.00 I/O 06/21/16 06/21/16 06/21/16 06/22/16 06/22/16 06/22/16 07:00 15:00 23:00 07:00 15:00 23:00 Intake Total 720 ml Output Total 500 ml 750 ml 350 ml 1000 ml 800 ml Balance -500 ml -750 ml -350 ml -1000 ml -80 ml Intake Oral 720 ml Output Urine Total 500 ml 750 ml 350 ml 1000 ml 800 ml # Bowel Movements 1 Result Diagram: 06/22/1662506/22/16625 Objective Remarks GENERAL: MBMN WF with mild sob SKIN: Warm and dry. HEAD: Normocephalic. EYES: No scleral icterus. No injection or drainage. NECK: Supple, trachea midline. No JVD or lymphadenopathy. CARDIOVASCULAR: Regular rate and rhythm without murmurs, gallops, or rubs. RESPIRATORY: Breath sounds equal bilaterally. No accessory muscle use. Scattered Rales GASTROINTESTINAL: Abdomen soft, non-tender, nondistended. MUSCULOSKELETAL: No cyanosis, or edema. BACK: Nontender without obvious deformity. No CVA tenderness. A/P Assessment and Plan Resp insff improving Bilat Infilt MS PLAN: Aerosol nebs IV Solumedrol cont Abx vanco and Cefepime Wean 02 Available prn over weekend. Florentin Bhatti MD Jun 22, 2016 19:19
[2016-06-22] MEDS ORDERED: VANCOMYCIN INJ 1,250 MG in SODIUM CHLORID 0.9% 500 ML INJ 500 ML IV SCH (20:00)
[2016-06-22] MEDS: VANCOMYCIN INJ 1,250 MG in SODIUM CHLOR 0.9% 250 ML INJ 250 ML IV SCH (21:41)
[2016-06-23] VITALS (7 sets, daily range): BP systolic 116–184; BP diastolic 57–84; PULSE 87–98; RESP 20; TEMP 95.7–97.7; O2SAT 95–98
[2016-06-23] MEDS: HEPARIN SODIUM - SQ 10,000 UNITS/ML VIAL SQ SCH ×2 (03:06→14:18)
[2016-06-23] MEDS: ACETAMINOPHEN/HYDROcodone 325 MG/5 MG TAB PO SCH ×3 (03:06→18:25)
[2016-06-23] MEDS: LEVOTHYROXINE SODIUM 25 MCG TAB PO SCH (05:46)
[2016-06-23] MEDS: LEVOTHYROXINE SODIUM 200 MCG TAB PO SCH (05:46)
[2016-06-23] MEDS: HYDROmorphone HCL 2 MG TAB PO PRN ×4 (06:25→22:15)
[2016-06-23] MEDS: RESP: ALBUTEROL 2.5 MG/IPRATROPIUM 0.5 MG NEB (SCH) NEB ×2 (07:31→11:21)
[2016-06-23] MEDS: RESP: BUDESONIDE 0.5 MG/2 ML NEB NEB SCH ×2 (07:31→20:35)
--- NOTE | 2016-06-23 08:44 | HHI.PR ---
Subjective Subjective Remarks Rested okay off and on Pain under left breast rib area, sore to touch Appetite good, most of the time Shortness of breath mild at rest, Cough O2 on (Yin French) Review of Systems Constitutional Constitutional: Fatigue, Weakness (acute on chronic but almost constant) Constitutional Remarks 10 point ROS done. Positives include weakness fatigue cough shortness of breath , pain Systems essentially unremarkable (Yin French) Pulmonary Respiratory: Coughing, Shortness of Breath, Wheezing (acute on chronic) ( Yin French) GI/Abdomen GI/Abdominal Exam: Constipation (monitor) (Yin French) Musculoskeletal MS: Weakness, Stiffness, Discomfort/Pain (left rib pain) (Yin French ) Psychiatric Psychiatric: Anxiety, Depression (Yin French) Vitals/Results Intake & Output 06/22/16 06/22/16 06/23/16 15:00 23:00 07:00 Intake Total 720 ml 60 ml Output Total 800 ml Balance -80 ml 60 ml Intake Oral 720 ml 60 ml Output Urine Total 800 ml # Voids 3 1 # Bowel Movements 0 Vital Signs Vital Signs Date Time Temp Pulse Resp B/P Pulse Ox O2 Delivery O2 Flow Rate FiO2 06/23/16 07:31 98 Nasal Cannula 4.00 06/23/16 04:00 96.2 89 20 128/65 98 06/22/16 23:00 98.0 81 20 149/80 95 06/22/16 22:50 100 06/22/16 21:50 97 Nasal Cannula 4.00 06/22/16 21:05 97.0 91 18 128/62 97 06/22/16 20:47 98 Nasal Cannula 4.00 06/22/16 15:32 97.3 99 18 123/65 95 06/22/16 12:55 96.7 104 16 142/77 95 (Yin French) CBC/BMP: 06/22/16 0626 06/22/16 0626 Imaging Remarks Last Impressions Modified Barium Swallow 06/21/16 0000 Signed Impressions: Service Date/Time: May 00:00 - CONCLUSION: Modified barium swallow in conjunction with speech pathology. Rock Olsen MD Chest X-Ray 06/20/16 0000 Signed Impressions: Service Date/Time: Monday, June 20, 2016 12:09 - CONCLUSION: Bibasilar areas of somewhat thickened indistinct density consistent with consolidation and/or associated atelectasis. Chepe Nicholas MD CT Angiography 06/19/16 0000 Signed Impressions: Service Date/Time: Sunday, June 19, 2016 01:23 - CONCLUSION: 1. No pulmonary embolus. 2. Dense consolidations in the registered nurse maternal child medial lower lungs bilaterally. 3. Distention of the esophagus throughout the chest. 4. Nonspecific prominent lymph nodes in the precarinal and right hilar region. Luiz Shrestha MD Current Medications Active Medications Guaifenesin/ Codeine Phosphate (Robitussin Ac 200-20 Mg/10 ml Liq) 10 ml Q6H PRN PO Last administered on 06/22/16 17:50; Admin Dose 10 ML; Start 06/22/16 at 12:00 Methylprednisolone Sodium Succinate (SoluMEDROL INJ) 40 mg BID IV PUSH Last administered on 06/22/16 21:41; Admin Dose 40 MG; Start 06/22/16 at 21:00 Vancomycin HCl 1250 mg/Sodium Chloride 512.5 ml @ 250 mls/hr Q18H IV; Start at 20:00; Status Cancel Vancomycin HCl/ Sodium Chloride (Vancomycin Inj/ NS 250 ml Inj) 262.5 ml @ 250 mls/hr Q18H IV Last administered on 06/22/16 21:41; Admin Dose 250 MLS/HR; Start 06/22/16 at 20:00 (Yin French) Physical Exam General General Appearance: Well Developed, No Acute Distress, Comfortable, Sleeping, Obese (Yin FrenchP) Eyes Eye Exam: Pupils Equal, Pupils Reactive (Yin FernchP) Ears & Nose Ears & Nose Exam: Nasal Mucosa [place] (Yin FrenchP) Throat Throat Exam: Oral Mucosa [place] & Moist (Yin FrenchP) Pulmonary Resp Exam: Crackles, Rhonchi, Decreased Bases, Diminished Breath Sounds, Poor Inspiratory Effort, Retractions Resp Remarks Acute on Chronic shortness of breath cough and wheezing. Pain with inspiration left rib left breast (GillianYin M[employer]INE SAFETY OFFICER) Cardiology CV Exam: Regular (GillianYin [employer] SAFETY OFFICER) Gastrointestinal/Abdomen GI Exam: Soft, Non-Tender, Bowel Sounds Present, Non-Distended (Gillian,Yin [employer] S[employer]Y OFFICER) Genitourinary Exam: Clear Urine (GillianYin [employer] SAFETY OFFICER) Musculoskeletal MS Exam: Joints Intact, Unable to Ambulate MS Remarks Chronic pain (GillianYin [employer] SAFETY OFFICER) Integumentary Skin Exam: Warm, Dry (Gillian,Yin [employer] SAFETY OFFICER) Extremeties Extremities Exam: No Edema, Pedal Pulses Palpable (Gillian,Yin [employer] SAF[employer]Y OFFICER) Neurologic Neuro Exam: Alert, Awake, Oriented, Speech Clear, Moving All Extremities, No Focal Deficits (Whately,Yin [employer] SAF[employer] OFFICER) Psychiatric Psych Exam: Appropriate Responses (WhatelyYin M[employer] SAFETY OFFICER) VTE Prophylaxis VTE Prophylaxis Device: SCDs VTE Prophylaxis Meds: Heparin (WhatelyYin M[employer] SAFETY OFFICER) Assessment/Plan Problem List: (1) Acute exacerbation of chronic obstructive pulmonary disease (COPD) (2) History of multiple sclerosis (3) PNA (pneumonia) (4) Sepsis (5) Shortness of breath (6) Acute bronchitis (7) HTN (hypertension) (8) Seizure disorder (9) Hypothyroidism (10) Acute renal disease Assessment/Plan admitted with acute on chronic resp. failure, COPD exacerbation, sepsis -continue with duonebs -empiric antibiotics, follow cultures, negative so far -continue IV Solumedrol 40 mg q 6, wean down BID -continue Tessalon, Mucinex, add Robitussin -appreciate pulmonary input -swallow eval done, MBS done-no aspiration -continue with diet per speech recommendations Pain management, shortness of breath management ZULEYMA -IVF at [facility] -Renal fx improved HTN -continue DANII/BB Depression -continue home meds Seizure disorder -continue Keppra DNR status continue home meds Heparin for DVT prophylaxis PT eval--OOB Continue with above tx Improving, poss. dc to SNF Saturday Patient states she has chronic pain almost all the time now. States IV med helps more than by mouth. Will discuss with Dr. Chirag alvares. She states she has agreed to hospice and wants to be comfortable as much of the time as possible, plus hopefully have a little quality time. D/W RN D/W Dr. Beard D/W pt This patient was seen by myself and Dr. Beard, this note is written on her behalf. (Yin French) Assessment/Plan Patient seen and examined wants pain control wants comfort care agreeable to proceed with Hospice consult Hospice increase pain meds to 1 mg i/v prn pain discussed with patient discussed with Yin THOMAS (Rajni Beard MD) Problem Qualifiers (1) PNA (pneumonia): Qualified Code: J18.9 - Pneumonia due to infectious organism, unspecified laterality, unspecified part of lung (2) Sepsis: Qualified Code: A41.9 - Sepsis, due to unspecified organism (3) Acute bronchitis: Qualified Code: J20.9 - Acute bronchitis, unspecified organism (4) HTN (hypertension): Qualified Code: I10 - Essential hypertension (5) Hypothyroidism: Qualified Code: E03.9 - Hypothyroidism, unspecified type Yin French Jun 23, 2016 08:44 Rajni Beard MD Jun 23, 2016 14:57
[2016-06-23] MEDS: ATORVASTATIN 10 MG TAB PO SCH (08:53)
[2016-06-23] MEDS: LISINOPRIL 5 MG TAB PO SCH (08:53)
[2016-06-23] MEDS: SERTRALINE HCL 50 MG TAB PO SCH (08:54)
[2016-06-23] MEDS: NYSTATIN SUSP 500,000 U/5 ML CUP SWISH-SWAL SCH ×4 (08:54→22:14)
[2016-06-23] MEDS: GABAPENTIN 100 MG CAP PO SCH ×3 (08:54→18:25)
[2016-06-23] MEDS: methylPREDNISolone SOD SUCC 40 MG/1 ML VIAL IV PUSH SCH ×2 (08:54→22:17)
[2016-06-23] MEDS: levETIRAcetam 500 MG TAB PO SCH ×2 (08:54→22:15)
[2016-06-23] MEDS: SUCRALFATE 1 GM TAB PO SCH ×3 (08:54→18:25)
[2016-06-23] MEDS: SODIUM CHLORIDE 0.9% FLUSH 5 ML FLUSH FLUSH SCH ×2 (08:55→22:14)
[2016-06-23] MEDS: AZTREONAM INJ 1,000 MG in SODIUM CHLORIDE 0.9% INJ 100 ML IV SCH (13:00)
[2016-06-23] MEDS: VANCOMYCIN INJ 1,250 MG in SODIUM CHLOR 0.9% 250 ML INJ 250 ML IV SCH (14:19)
[2016-06-23] MEDS: PANTOPRAZOLE SODIUM 40 MG VIAL IV PUSH SCH (18:23)
[2016-06-23] MEDS ORDERED: HYDROmorphone HCL PF 1 MG/ML VIAL IV PRN (18:30)
[2016-06-23] MEDS: RESP: ALBUTEROL 2.5 MG/IPRATROPIUM 0.5 MG NEB (PRN) NEB (20:35)
[2016-06-23] MEDS: ENALAPRILAT 1.25 MG/ML VIAL IV PUSH PRN (22:16)
[2016-06-24] VITALS: BP 152/79; PULSE 72; RESP 20; TEMP 98.1; O2SAT 95
[2016-06-24] MEDS: AZTREONAM INJ 1,000 MG in SODIUM CHLORIDE 0.9% INJ 100 ML IV SCH (00:58)
[2016-06-24] MEDS: HEPARIN SODIUM - SQ 10,000 UNITS/ML VIAL SQ SCH ×2 (00:58→14:30)
[2016-06-24] MEDS: ACETAMINOPHEN/HYDROcodone 325 MG/5 MG TAB PO SCH ×3 (00:58→13:38)
[2016-06-24 04:00] VITALS: BP 185/87; PULSE 92; RESP 20; TEMP 96.5; O2SAT 94
[2016-06-24] MEDS: LEVOTHYROXINE SODIUM 200 MCG TAB PO SCH (06:32)
[2016-06-24] MEDS: LEVOTHYROXINE SODIUM 25 MCG TAB PO SCH (06:32)
[2016-06-24] MEDS: ENALAPRILAT 1.25 MG/ML VIAL IV PUSH PRN (06:32)
[2016-06-24 07:17] VITALS: O2SAT 98
[2016-06-24] MEDS: RESP: BUDESONIDE 0.5 MG/2 ML NEB NEB SCH (07:17)
[2016-06-24 08:22] VITALS: BP 131/67; PULSE 84; RESP 16; TEMP 98; O2SAT 98
[2016-06-24] MEDS: GABAPENTIN 100 MG CAP PO SCH ×2 (08:45→13:38)
[2016-06-24] MEDS: LISINOPRIL 5 MG TAB PO SCH (08:45)
[2016-06-24] MEDS: SUCRALFATE 1 GM TAB PO SCH ×2 (08:45→13:38)
[2016-06-24] MEDS: SERTRALINE HCL 50 MG TAB PO SCH (08:45)
[2016-06-24] MEDS: methylPREDNISolone SOD SUCC 40 MG/1 ML VIAL IV PUSH SCH (08:45)
[2016-06-24] MEDS: levETIRAcetam 500 MG TAB PO SCH (08:45)
[2016-06-24] MEDS: ATORVASTATIN 10 MG TAB PO SCH (08:45)
[2016-06-24] MEDS: NYSTATIN SUSP 500,000 U/5 ML CUP SWISH-SWAL SCH ×2 (08:45→13:39)
[2016-06-24] MEDS: SODIUM CHLORIDE 0.9% FLUSH 5 ML FLUSH FLUSH SCH (08:51)
[2016-06-24] MEDS: VANCOMYCIN INJ 1,250 MG in SODIUM CHLOR 0.9% 250 ML INJ 250 ML IV SCH (08:51)
[2016-06-24] MEDS: SENNOSIDES 8.6 MG TAB PO PRN (09:24)
--- NOTE | 2016-06-24 10:53 | HHI.DCPOC ---
Discharge Care Plan Diagnosis: (1) Acute bronchitis (2) Shortness of breath (3) Acute exacerbation of chronic obstructive pulmonary disease (COPD) Your Health Problems Are: Chest Pain Cough Shortness of Breath Goals to Promote Your Health * To prevent worsening of your condition and complications * To maintain your health at the optimal level Directions to Meet Your Goals Take your medications as prescribed Follow your dietary instruction Follow activity as directed Keep your appointments as scheduled Take your immunizations and boosters as scheduled If your symptoms worsen call your PCP, if no PCP go to Urgent Care Center or Emergency Room Smoking is Dangerous to Your Health. Avoid second hand smoke Call the 24-hour hour crisis hotline for domestic abuse at Laurence Tian Jun 24, 2016 10:53
[2016-06-24] MEDS ORDERED: PRED20 PO (10:55)
[2016-06-24] MEDS ORDERED: MUCI600T PO (10:57)
[2016-06-24] MEDS ORDERED: BENZ100 PO (10:57)
[2016-06-24] MEDS ORDERED: LEVA500T PO (10:59)
--- NOTE | 2016-06-24 10:59 | HHI.DS ---
Discharge Summary Admission Date Jun 19, 2016 at 02:05 Discharge Date: Jun 24, 2016 Admitting Diagnosis PNA/UTI/Sepsis. (1) Sepsis (2) COPD (chronic obstructive pulmonary disease) (3) Respiratory distress (4) Hypoxia (5) GERD (gastroesophageal reflux disease) (6) Hypoxemia (7) UTI (urinary tract infection) (8) MS (multiple sclerosis) (9) PNA (pneumonia) (10) Seizure disorder (11) HTN (hypertension) CBC/BMP: 06/22/16 0626 06/24/16 0815 Significant Findings Laboratory Tests Test 06/22/16 06/22/16 06/24/16 01:33 06:26 08:15 Vancomycin Level Trough 20.1 MCG/ML (5.0-10.0) Red Blood Count 3.46 MIL/MM3 (4.00-5.30) Hemoglobin 9.6 GM/DL (11.6-15.3) Hematocrit 30.1 % (35.0-46.0) Mean Corpuscular Hemoglobin 31.7 % Concent (32.0-36.0) Red Cell Distribution Width 18.4 % (11.6-17.2) Neutrophils (%) (Auto) 86.2 % (16.0-70.0) Lymphocytes (%) (Auto) 7.0 % (9.0-44.0) Lymphocytes # (Auto) 0.6 TH/MM3 (1.0-4.8) Blood Urea Nitrogen 24 MG/DL (7-18) Estimat Glomerular Filtration 67 ML/MIN (>89) 80 ML/MIN (>89) Rate Random Glucose 197 MG/DL (74-106) Imaging Last Impressions Modified Barium Swallow 06/21/16 0000 Signed Impressions: Service Date/Time: May 00:00 - CONCLUSION: Modified barium swallow in conjunction with speech pathology. Rock Olsen MD Chest X-Ray 06/20/16 0000 Signed Impressions: Service Date/Time: Monday, June 20, 2016 12:09 - CONCLUSION: Bibasilar areas of somewhat thickened indistinct density consistent with consolidation and/or associated atelectasis. Chepe Nicholas MD CT Angiography 06/19/16 0000 Signed Impressions: Service Date/Time: Sunday, June 19, 2016 01:23 - CONCLUSION: 1. No pulmonary embolus. 2. Dense consolidations in the scallop binder medial lower lungs bilaterally. 3. Distention of the esophagus throughout the chest. 4. Nonspecific prominent lymph nodes in the precarinal and right hilar region. Luiz Shrestha MD Hospital Course This is a pleasant 66-year-old white female who was just discharged from the hospital for COPD exacerbation and acute respiratory distress. The patient does have acute on chronic respiratory failure and struggles with any type of increased activity. The patient states that her transfer back to the facility was a tough event for her and caused her to work of breathing to be increased. The patient was evaluated per EMS and placed on C-PAP during transport back here to the hospital. She was currently coughing with extreme congestion, but states that she cannot cough up very much sputum. She had expiratory wheezes anteriorly and posteriorly and states that if she coughs, it breaks her ribs. The patient was noted to be febrile within the past 24 hours after going back [facility] and complained of left-sided chest pain predominantly with movement and cough and breathing. She was evaluated in the emergency room, had workup done. She was noted septic , with lactic acidosis. Hemodynamically stable CTA was negative for pulmonary emboli but it did show infiltrates. Cultures were obtained, patient was started on empiric antibiotics. She was admitted for further evaluation and treatment for: (1) Acute exacerbation of chronic obstructive pulmonary disease (COPD) (2) History of multiple sclerosis (3) PNA (pneumonia) (4) Sepsis (5) Shortness of breath (6) Acute bronchitis (7) HTN (hypertension) (8) Seizure disorder (9) Hypothyroidism (10) Acute renal disease During the course of the hospitalization, the following took place admitted with acute on chronic resp. failure, COPD exacerbation, sepsis. Patient was put on IV fluids, lactic acid was monitor until he went back to normal. Was put on DuoNeb's, IV steroids, continued on oxygen. Empiric antibiotics were continued. Patient had a few episodes of increased respiratory distress, requiring increased dosages of steroids and one-time dose of Lasix. Pulmonary was consulted for evaluation. ABGs were done as well as repeat of chest x-ray. Noted with some difficulty swallowing, speech recommended MBS. Patient was put nothing by mouth. Patient did pass swallow eval and was restarted on diet Patient had increased cough, put on Tessalon, Mucinex, add Robitussin Patient's respiratory status improved slowly, however she is likely to have future exacerbations. ZULEYMA-on initial presentation which improved after IV fluids given BMP was followed HTN, remains stable. Was continued on DANII/BB Depression-continued on home meds Seizure disorder--continued Keppra History of chronic pain and MS -was treated with IV Dilaudid and PO narc Ativan PRN was also added Palliative care was consulted to assist with defining goals of care. Patient decided for DNR Patient was appropriate for hospice, she indicated a desire to have some quality of life at the end of her life. She [facility]. Patient [facility]. Her daughter was in agreement with patient's decision and was supportive. Pt Condition on Discharge: Fair Discharge Disposition: Hospice/Med Facility Discharge Instructions DIET: Follow Instructions for: As Tolerated, No Restrictions Speech Therapy-Diet Recommends: Mechanical Soft Activities you can perform: Weight Bearing as Nel Follow up Referrals: PCP Follow-up New Medications: Levofloxacin (Levaquin) 500 Mg Tab 500 MG PO DAILY Infection #5 Ref 0 TAB Benzonatate (Tessalon Perles) 100 Mg Cap 100 MG PO TID PRN cough #28 Ref 0 CAP Guaifenesin ER 12 HR (Mucinex ER 12 HR) 600 Mg Matteo 600 MG PO BID Cough #14 Ref 0 TAB Prednisone (Prednisone) 20 Mg Tab 20 MG PO BID 20 MG PO BID X 4, THEN DECREASE TO 20 MG PO DAILY, X 4, THEN 10 MG PO DAILY. Broncospasm #14 Ref 0 TAB Continued Medications: Amlodipine (Amlodipine) 10 Mg Tab 10 MG PO DAILY HTN #30 Ref 0 TAB Atorvastatin (Atorvastatin) 10 Mg Tab 10 MG PO DAILY Cholesterol Management #30 Ref 0 TAB Budesonide Neb (Budesonide Neb) 0.5 Mg/2 Ml Neb 0.5 MG NEB BID NEB COPD #60 Ref 0 NEBULE Gabapentin (Gabapentin) 100 Mg Cap 100 MG PO TID #90 Ref 0 CAP Guaifenesin-Dextromethorphan Liq (Guaifenesin DM Liq) 10-100 Mg/5 Ml Liq 10 ML PO Q6HR PRN COUGH #1 Ref 0 BOTTLE Ipratropium-Albuterol Neb (Duoneb) 0.5-2.5 Mg/3 Ml Neb 1 AMPULE NEB QID COPD #60 ML Lactobacillus Acidophilus (Lactobacillus Acidophilus) 1 Tab Tab 1 TAB PO BID C-DIFF #30 Ref 0 TAB Levetiracetam (Keppra) 500 Mg Tab 500 MG PO BID Control Seizures #60 Ref 0 TAB Levothyroxine (Levothyroxine) 25 Mcg Tab 25 MCG PO DAILY Thyroid #30 Ref 0 TAB Levothyroxine (Levothyroxine) 200 Mcg Tab 200 MCG PO DAILY Thyroid #30 Ref 0 TAB Lisinopril (Lisinopril) 5 Mg Tab 5 MG PO DAILY HTN #30 Ref 0 TAB Metoprolol Tartrate (Metoprolol Tartrate) 25 Mg Tab 12.5 MG PO Q12HR HTN #60 Ref 0 TAB Mirtazapine (Mirtazapine) 15 Mg Tab 15 MG PO HS Depression Control #30 Ref 0 TAB Nitroglycerin SL (Nitroglycerin SL) 0.4 Mg Subl 0.4 MG SL DIRECTED ONE TABLET UNDER THE TONGUE NEEDED FOR CHEST PAIN, MAY REPEAT EVERY FIVE MINUTES FOR A TOTAL OF 3 DOSES OR CALL 911 IF NO RELIEF PRN CHEST PAIN #100 Ref 0 TAB.SL Omeprazole (Omeprazole) 20 Mg Cap 20 MG PO DAILY GERD Sennosides-Docusate Sodium (Senna S) 8.6-50 Mg Tab 1 TAB PO BID PRN CONSTIPATION Sertraline (Sertraline) 50 Mg Tab 50 MG PO DAILY Depression Control #30 Ref 0 TAB Sucralfate (Sucralfate) 1 Gm Tab 1 GM PO TID on empty stomach STOMACH CRAMPS #90 Ref 0 TAB Tiotropium Inh (Spiriva Handihaler) 18 Mcg Cap 18 MCG INH DAILY 1 capsule = 18 mcg COPD #30 Ref 0 CAP Discontinued Medications: Hydrocodone-Acetaminophen (Hydrocodone-Acetaminophen) 5-325 mg Tab 1 TAB PO q6h Pain Management #30 TAB Lorazepam (Ativan) 0.5 Mg Tab 0.5 MG PO TID PRN ANXIETY #30 TAB Prednisone (Prednisone) 10 Mg Tab 10 MG PO DAILY COPD Ref 0 TAB Prednisone (Prednisone) 20 Mg Tab 20 MG PO DAILY COPD #4 TAB Laurence Tian Jun 24, 2016 10:59
--- NOTE | 2016-06-24 11:05 | HHI.PR ---
Subjective Subjective Remarks some cough and wheezing pain stable no fever no acute changes overnight has agreed to go back to SNF with hospice Review of Systems Constitutional Constitutional Remarks 12 point ROS completed, negative except as noted above GI/Abdomen GI/Abdominal Exam: Constipation (monitor) Psychiatric Psychiatric: Anxiety, Depression Vitals/Results Intake & Output 06/23/16 06/23/16 06/24/16 15:00 23:00 07:00 Intake Total 480 ml 480 ml Balance 480 ml 480 ml Intake Oral 480 ml 480 ml # Voids 1 2 5 Vital Signs Vital Signs Date Time Temp Pulse Resp B/P Pulse Ox O2 Delivery O2 Flow Rate FiO2 06/24/16 08:22 98.0 84 16 131/67 98 06/24/16 07:17 98 Nasal Cannula 4.00 06/24/16 04:00 96.5 92 20 185/87 94 06/24/16 00:00 98.1 72 20 152/79 95 06/23/16 21:15 Nasal Cannula 4.00 06/23/16 20:35 97 Nasal Cannula 4.00 06/23/16 20:00 87 06/23/16 20:00 96.2 98 20 182/84 95 06/23/16 16:31 96.9 98 20 116/57 98 06/23/16 12:47 97.7 87 20 126/63 98 CBC/BMP: 06/22/16 0626 06/24/16 0815 Lab Results Laboratory Tests Test 06/24/16 08:15 Creatinine 0.73 MG/DL Estimat Glomerular Filtration 80 ML/MIN Rate Physical Exam General General Appearance: Well Developed, No Acute Distress, Comfortable, Obese Eyes Eye Exam: Pupils Equal, Pupils Reactive Ears & Nose Ears & Nose Exam: Nasal Mucosa [place] Throat Throat Exam: Oral Mucosa [place] & Moist Pulmonary Resp Exam: Crackles, Rhonchi, Decreased Bases, Diminished Breath Sounds Resp Remarks exp. wheezes Cardiology CV Exam: Regular Gastrointestinal/Abdomen GI Exam: Soft, Non-Tender, Bowel Sounds Present, Non-Distended Musculoskeletal MS Exam: Joints Intact, Atrophy, Unable to Ambulate Integumentary Skin Exam: Warm, Dry Extremeties Extremities Exam: No Edema, Pedal Pulses Palpable Neurologic Neuro Exam: Alert, Awake, Oriented, Speech Clear, Moving All Extremities, No Focal Deficits Psychiatric Psych Exam: Appropriate Responses VTE Prophylaxis VTE Prophylaxis Device: SCDs VTE Prophylaxis Meds: Heparin Assessment/Plan Problem List: (1) Acute exacerbation of chronic obstructive pulmonary disease (COPD) (2) History of multiple sclerosis (3) PNA (pneumonia) (4) Sepsis (5) Shortness of breath (6) Acute bronchitis (7) HTN (hypertension) (8) Seizure disorder (9) Hypothyroidism (10) Acute renal disease Assessment/Plan admitted with acute on chronic resp. failure, COPD exacerbation, sepsis -continue with duonebs -empiric antibiotics, follow cultures, negative so far -change to oral steroids -continue Tessalon, Mucinex, add Robitussin -appreciate pulmonary input -swallow eval done, MBS done-no aspiration -continue with diet per speech recommendations ZULEYMA -IVF at [facility] -Renal fx improved HTN -continue DANII/BB Depression -continue home meds Seizure disorder -continue Keppra Pain management with IV Dilaudid and PO narc Ativan PRN DNR status Heparin for DVT prophylaxis PT eval--OOB Appreciate palliative care input pt. agreeable with hospice, has been seen by RN. Daughter in agreement Will discharge to SNF with hospice today Poor prognosis D/W RN D/W Dr. Beard D/W pt This patient was seen by myself and Dr. Beard, this note is written on her behalf. Discharge Minutes: 45 Problem Qualifiers (1) PNA (pneumonia): Qualified Code: J18.9 - Pneumonia due to infectious organism, unspecified laterality, unspecified part of lung (2) Sepsis: Qualified Code: A41.9 - Sepsis, due to unspecified organism (3) Acute bronchitis: Qualified Code: J20.9 - Acute bronchitis, unspecified organism (4) HTN (hypertension): Qualified Code: I10 - Essential hypertension (5) Hypothyroidism: Qualified Code: E03.9 - Hypothyroidism, unspecified type Laurence Tian Jun 24, 2016 11:04
[2016-06-24 12:31] VITALS: BP 170/72; PULSE 92; RESP 16; TEMP 95.1; O2SAT 95
[2016-06-24] MEDS: RESP: ALBUTEROL 2.5 MG/IPRATROPIUM 0.5 MG NEB (PRN) NEB (14:09)
[2016-06-24] MEDS ORDERED: DILA2TAB2 PO (15:07)
[2016-06-24] MEDS ORDERED: HYDR-3516 PO (15:07)
[2016-06-24] MEDS ORDERED: LORA-373 PO (15:07)
[2016-06-24 16:45] VITALS: BP 109/56; PULSE 82; RESP 16; TEMP 97.8; O2SAT 96
[2016-06-24] MEDS: LORazepam 0.5 MG TAB PO PRN (16:56)
[2016-06-24] MEDS ORDERED: predniSONE 20 MG TAB PO SCH (21:00)
== END 2016-06-24 17:25 | disposition hospice, inpatient (51) | DRG 871 ==
LOC: NEPA 22:17 → NEDA 06-19 02:05 → N05A 06-19 06:20
PROVIDERS: ADMIT Internal Medicine; ATTEND Internal Medicine
DX: A41.9 Sepsis, unspecified organism (principal); J96.21 Acute and chronic respiratory failure with hypoxia; E87.2 Acidosis; N17.9 Acute kidney failure, unspecified; J18.9 Pneumonia, unspecified organism; Z68.43 Body mass index [BMI] 50.0-59.9, adult; J44.0 Chronic obstructive pulmonary disease with (acute) lower respiratory infection; J44.1 Chronic obstructive pulmonary disease with (acute) exacerbation; N39.0 Urinary tract infection, site not specified; R65.20 Severe sepsis without septic shock; G35 Multiple sclerosis; I10 Essential (primary) hypertension; K21.9 Gastro-esophageal reflux disease without esophagitis; E03.9 Hypothyroidism, unspecified; F32.9 Major depressive disorder, single episode, unspecified; G40.909 Epilepsy, unspecified, not intractable, without status epilepticus; Z66 Do not resuscitate; E78.5 Hyperlipidemia, unspecified; E66.01 Morbid (severe) obesity due to excess calories; G62.9 Polyneuropathy, unspecified; Z87.891 Personal history of nicotine dependence; Z99.81 Dependence on supplemental oxygen; Z51.5 Encounter for palliative care
CPT/HCPCS: 71010; 71275; 74230; 76937; 80048; 80053; 80202; 81001; 82550; 82565; 82805; 83605; 83735; 84100; 84484; 85025; 85610; 85730; 87040; 87086; 93005; 94002; 94640; 94664; 96365; 96375; C9113; J1170; J1644; J1940; J1953; J2270; J2920; J2930; J3370; J7030; J7040; J7050; J7626; Q9967